=== PATIENT | male | born 1945 | race Caucasian/White ===

== ENCOUNTER 2017-01-06 04:23 | Inpatient (IN) | payer OTHER ==
[2017-01-06] MEDS ORDERED: ONDANSETRON DISINTEGRATING 4 MG TAB PO PRN (14:07)
[2017-01-06] MEDS ORDERED: ACETAMINOPHEN 325 MG TAB PO PRN (14:07)
[2017-01-06] MEDS ORDERED: ONDANSETRON 4 MG/2 ML VIAL IVP PRN (14:07)
[2017-01-06] MEDS ORDERED: NS 1,000 ML IV SCH (14:15)
[2017-01-06 14:38] LABS: ADD DIFF? YES; ADD MORPH? NO; ADD SCAN? NO; ATYPICAL LYMPHOCYTE FLAG 0 (0-99); FRAGMENT RBC FLAG 0 (0-99); HEMATOCRIT 35.6 % (40.0-51.0); HEMOGLOBIN 12.3 g/dL (13.7-17.5); LEFT SHIFT FLG 10 (0-99); LIPEMIA HEMOLYSIS FLAG 90 (0-99); MEAN CELL HEMOGLOBIN 29.2 pg (27.9-34.1); MEAN CELL HEMOGLOBIN CONCENTR. 34.6 g/dL (32.4-36.7); MEAN CELL VOLUME 84.6 fL (81.5-99.8); MEAN PLATELET VOLUME 10.5 fL (8.7-11.7); PLATELET CLUMPS FLAG 20 (0-99); PLATELET COUNT 261 10^3/uL (150-400); RED BLOOD CELL COUNT 4.21 10^6/uL (4.40-6.38); RED CELL DISTRIBUTION WIDTH 13.3 % (11.5-15.2)
[2017-01-06] MEDS ORDERED: POLYETHYLENE GLYCOL 3350 17 GM PKT PO PRN (14:42)
[2017-01-06] MEDS ORDERED: D50W 25 GM/50 ML SYR IVP PRN (14:44)
[2017-01-06] MEDS ORDERED: HYDROmorphONE/DILAUDID 1 MG/ML INJ IVP PRN (14:44)
[2017-01-06 14:58] LABS: ANION GAP 11 mEq/L (8-16); CALCIUM 9.1 mg/dL (8.5-10.4); CARBON DIOXIDE 23 mEq/l (22-31); CHLORIDE 109 mEq/L (97-110); CREATININE 0.6 mg/dL (0.7-1.3); GLOMERULAR FILTRATION RATE > 60; GLUCOSE 148 mg/dL (70-100); POTASSIUM 3.8 mEq/L (3.5-5.2); SODIUM 143 mEq/L (134-144)
[2017-01-06 15:00] LABS: PLATELET ESTIMATE ADEQUATE (ADEQ)
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
[2017-01-06] MEDS ORDERED: MUPIROCIN 2% 22 GM OINT NS ONE (15:28)
--- NOTE | 2017-01-06 15:31 | PDMN ---
Medical Necessity Medical necessity: los >2 mn (tx from another facility) for brain mass, NSTEMI, CHF, encephalopathy; admit for brain mass excision w/CV surgery for backup; comorbid CVA, pulmonary htn, hx prior brain mass; per H&P & order 01/06/17
[2017-01-06] MEDS: INSULIN LISPRO 100 UNIT/ML SC SCH ×3 (17:02→23:54)
[2017-01-06] MEDS: DEXAMETHASONE 4 MG/ML VIAL IVP SCH ×2 (17:03→23:52)
[2017-01-06] MEDS: PIPERACILLIN/TAZO 3.375 GM/DEX 50 ML IV SCH ×2 (17:06→23:52)
[2017-01-06 17:30] LABS: HEMOGLOBIN A1C 8.2 % (4.0-6.0)
[2017-01-06] MEDS ORDERED: CARVEDILOL 3.125 MG TAB PO ONE (17:48)
[2017-01-06] MEDS ORDERED: INSULIN LISPRO 100 UNIT/ML SC SCH (18:00)
[2017-01-06] MEDS ORDERED: TAZO IV SCH (18:00)
[2017-01-06] MEDS ORDERED: [UNRECOGNIZED DRUG - OTHER] IV SCH (18:00)
[2017-01-06] MEDS ORDERED: CARVEDILOL 3.125 MG TAB PO SCH (18:00)
[2017-01-06] MEDS ORDERED: PIPERACILLIN IV SCH (18:00)
[2017-01-06] MEDS ORDERED: DEX IV SCH (18:00)
--- NOTE | 2017-01-06 18:21 | CPEKG ---
Heart Rate: 105 RR Interval: 571 P-R Interval: 176 QRSD Interval: 92 QT Interval: 308 QTC Interval: 408 P Haverstraw: 83 QRS Haverstraw: 92 T Wave Haverstraw: 140 EKG Severity - ABNORMAL ECG - EKG Impression: SINUS TACHYCARDIA EKG Impression: VENTRICULAR PREMATURE COMPLEX EKG Impression: ANTERIOR INFARCT, OLD Electronically Signed By: Dale Schwartz 07-Jan-2017 12:10:49
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
[2017-01-06] MEDS: levETIRAcetam 1,000 MG in NS 100 ML IV SCH (20:31)
[2017-01-06] MEDS: ATORVASTATIN CALCIUM 40 MG TAB PO SCH (20:33)
[2017-01-06] MEDS: MUPIROCIN 2% 22 GM OINT NS SCH (20:46)
[2017-01-06] MEDS ORDERED: LORazepam 1 MG TAB PO SCH (21:00)
[2017-01-06] MEDS ORDERED: SODIUM CHLORIDE IV SCH (21:00)
[2017-01-06] MEDS ORDERED: CHLORHEXIDINE GLUC HIBICLENS 118 ML BTL TP SCH (21:00)
[2017-01-06] MEDS ORDERED: INSULIN GLARGINE 100 UNITS/ML SYRINGE SC SCH (21:00)
[2017-01-06] MEDS ORDERED: LEVETIRACETAM IV SCH (21:00)
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
[2017-01-07 04:38] LABS: % IMMATURE GRANULYOCYTES 0.7 % (0.0-1.1); ABSOLUTE IMMATURE GRANULOCYTES 0.13 10^3/uL (0.00-0.10); ADD DIFF? NO; ADD MORPH? NO; ADD SCAN? NO; ATYPICAL LYMPHOCYTE FLAG 0 (0-99); FRAGMENT RBC FLAG 0 (0-99); HEMATOCRIT 33.7 % (40.0-51.0); HEMOGLOBIN 11.6 g/dL (13.7-17.5); LEFT SHIFT FLG 0 (0-99); LIPEMIA HEMOLYSIS FLAG 90 (0-99); MEAN CELL HEMOGLOBIN 29.4 pg (27.9-34.1); MEAN CELL HEMOGLOBIN CONCENTR. 34.4 g/dL (32.4-36.7); MEAN CELL VOLUME 85.3 fL (81.5-99.8); MEAN PLATELET VOLUME 10.5 fL (8.7-11.7); PLATELET CLUMPS FLAG 0 (0-99); PLATELET COUNT 239 10^3/uL (150-400); RED BLOOD CELL COUNT 3.95 10^6/uL (4.40-6.38); RED CELL DISTRIBUTION WIDTH 12.9 % (11.5-15.2)
[2017-01-07 04:59] LABS: ALANINE AMINOTRANSFERASE 93 IU/L (21-72); ALBUMIN 2.7 g/dL (3.5-5.0); ALKALINE PHOSPHATASE 63 IU/L (38-126); ASPARTATE AMINOTRANSFERASE 64 IU/L (17-59); BILIRUBIN,TOTAL 0.7 mg/dL (0.1-1.4); CALCIUM 8.1 mg/dL (8.5-10.4); CARBON DIOXIDE 23 mEq/l (22-31); CHLORIDE 110 mEq/L (97-110); CREATININE 0.6 mg/dL (0.7-1.3); GLOMERULAR FILTRATION RATE > 60; GLUCOSE 131 mg/dL (70-100); POTASSIUM 3.5 mEq/L (3.5-5.2); TOTAL PROTEIN 4.8 g/dL (6.3-8.2)
[2017-01-07] MEDS: INSULIN LISPRO 100 UNIT/ML SC SCH ×2 (05:31→08:57)
[2017-01-07] MEDS: PIPERACILLIN/TAZO 3.375 GM/DEX 50 ML IV SCH ×4 (05:36→23:32)
[2017-01-07] MEDS: DEXAMETHASONE 4 MG/ML VIAL IVP SCH ×4 (05:36→23:32)
[2017-01-07] MEDS ORDERED: CITRATE DEXTROSE SOLN 500 ML BAG MISC ONE ×2 (06:00→10:00)
[2017-01-07] MEDS ORDERED: DOBUTamine/DEXTROSE 250 ML IV SCH ×2 (06:00→10:00)
[2017-01-07] MEDS ORDERED: niCARdipine/NACL 200 ML IV SCH ×2 (06:00→10:00)
[2017-01-07] MEDS ORDERED: ceFAZolin 2 GM/SWFI 2 GM/20 ML SYR IVP ONE ×2 (06:00→10:00)
[2017-01-07] MEDS ORDERED: PHENYLEPHRINE HCL 50 MG in NS 250 ML IV ONE ×2 (06:00→10:00)
[2017-01-07] MEDS ORDERED: INSULIN REGULAR HUMAN 100 UNIT in NS 100 ML IV ONE ×2 (06:00→10:00)
[2017-01-07] MEDS ORDERED: SODIUM BICARBONATE 20 MEQ, LIDOCAINE 1% 10 ML in NORMOSOL-R 1,000 ML MISC ONE ×2 (06:00→10:00)
[2017-01-07] MEDS ORDERED: AMINOCAPROIC ACID 5 GM/20 ML VIAL IV ONE ×2 (06:00→10:00)
[2017-01-07] MEDS ORDERED: MANNITOL 25% 12.5 GM/50 ML VIAL IV ONE ×2 (06:00→10:00)
[2017-01-07] MEDS ORDERED: NOREPINEPHRINE BITARTRATE 16 MG in NS 250 ML IV ONE ×2 (06:00→10:00)
[2017-01-07] MEDS ORDERED: VERAPAMIL 5 MG, NITROGLYCERIN 2.5 MG, HEPARIN 500 UNIT, SODIUM BICARBONATE 0.2 MEQ in L... MISC ONE ×2 (06:00→10:00)
[2017-01-07] MEDS ORDERED: DOPamine/DEXTROSE/250 ML BAG IV ONE (06:08)
[2017-01-07] MEDS ORDERED: ALBUMIN 5% 250 ML BOTTLE IV ONE ×2 (06:09→09:34)
[2017-01-07] MEDS ORDERED: PROTAMINE SULFATE 50 MG/5 ML VIAL IVP ONE (06:09)
[2017-01-07] MEDS ORDERED: AMINOCAPROIC ACID 5 GM/20 ML VIAL ONE (06:10)
[2017-01-07] MEDS ORDERED: CALCIUM CHLORIDE 1 GM/10 ML INJ ONE (06:10)
[2017-01-07] MEDS ORDERED: POTASSIUM Cl (KCl) 20 MEQ/50 ML BAG IV ONE (06:10)
[2017-01-07] MEDS ORDERED: MILRINONE/DEXTROSE/100 ML BAG IV ONE (06:10)
[2017-01-07] MEDS ORDERED: AMIODARONE HCL 150 MG/3 ML VIAL ONE (06:11)
[2017-01-07] MEDS ORDERED: CITRATE DEXTROSE SOLN 500 ML BAG ONE (06:11)
[2017-01-07] MEDS ORDERED: LIDOCAINE 2% 100 MG/5 ML SYR ONE (06:11)
[2017-01-07] MEDS ORDERED: niCARdipine/NACL/200 ML BAG IV ONE ×2 (06:11→11:04)
[2017-01-07] MEDS ORDERED: NA BICARBONATE 50 MEQ/50 ML VIAL ONE (06:11)
[2017-01-07] MEDS ORDERED: ADENOSINE 6 MG/2 ML VIAL ONE (06:11)
[2017-01-07] MEDS ORDERED: MAGNESIUM SULFATE 1 GM/2 ML VIAL ONE (06:12)
[2017-01-07] MEDS ORDERED: methylPREDNISolone SOD SUCC 1 GM/8 ML VIAL ONE (06:12)
[2017-01-07] MEDS ORDERED: HEPARIN 10,000 UNIT/10 ML MDV ONE (06:12)
[2017-01-07] MEDS ORDERED: ceFAZolin 1 GM VIAL ONE (06:13)
[2017-01-07] MEDS ORDERED: MINERAL OIL 10 ML VIAL ONE (06:48)
[2017-01-07] MEDS ORDERED: PAPAVERINE HCL 60 MG/2 ML SDV ONE (06:48)
[2017-01-07] MEDS ORDERED: VERAPAMIL 5 MG/2 ML VIAL ONE (06:48)
[2017-01-07] MEDS ORDERED: ROCURONIUM 100 MG/10 ML VIAL ONE (06:53)
[2017-01-07] MEDS ORDERED: PHENYLEPHRINE 10 MG/ML SDV ONE (06:53)
[2017-01-07] MEDS ORDERED: fentaNYL 250 MCG/5 ML INJ ONE ×2 (06:58)
[2017-01-07] MEDS ORDERED: PROPOFOL 200 MG/20 ML VIAL ONE (06:58)
[2017-01-07] MEDS ORDERED: LIDOCAINE 2% 5 ML SDV ONE (06:59)
[2017-01-07] MEDS ORDERED: LABETALOL HCL 5 MG/ML 20 ML MDV ONE (07:01)
--- NOTE | 2017-01-07 07:04 | PDHPUP ---
History & Physical Update H&P update statement: This history and physical update is based on an assessment of the patient which was completed after admission or registration (within 24 hours), but prior to the surgery/procedure.
[2017-01-07] MEDS ORDERED: MIDAZOLAM 2 MG/2 ML VIAL IVP ONE (07:07)
[2017-01-07] MEDS ORDERED: MIDAZOLAM 2 MG/2 ML VIAL ONE (07:07)
--- NOTE | 2017-01-07 07:09 | PDANEPAE ---
ANE History of Present Illness cab ANE Past Medical History - Cardiovascular History Hx Hypertension: Yes Hx Arrhythmias: No Hx Chest Pain: Yes Hx Coronary Artery / Peripheral Vascular Disease: Yes Hx CHF / Valvular Disease: Yes Hx Palpitations: No - Pulmonary History Hx COPD: No Hx Asthma/Reactive Airway Disease: No Hx Recent Upper Respiratory Infection: No Hx Oxygen in Use at Home: No Hx Sleep Apnea: No Sleep Apnea Screening Result - Last Documented: Negative - Neurologic History Hx Cerebrovascular Accident: No Hx Seizures: No Hx Dementia: No Neurologic History Comment: tumor - Endocrine History Hx Diabetes: Yes - Renal History Hx Renal Disorders: No - Liver History Hx Hepatic Disorders: No - Surgical History Prior Surgeries: brain tumor resection ANE Review of Systems Review of Systems: - Exercise capacity Exercise capacity: <4 METS ANE Patient History - Allergies Allergies/Adverse Reactions: No Known Allergies Allergy (Unverified 01/06/17 14:07) - Home Medications Home Medications: Acetaminophen [Tylenol 325mg (*)] 650 mg PO Q4HRS PRN 01/06/17 [Last Taken Unknown] Aspirin [Aspirin 81mg (*)] 81 mg PO DAILY 01/06/17 [Last Taken Unknown] Atorvastatin Calcium [Lipitor 40 mg (*)] 80 mg PO HS 01/06/17 [Last Taken Unknown] Carvedilol [Coreg (*)] 3.125 mg PO BIDMEAL 01/06/17 [Last Taken Unknown] Dexamethasone [Decadron 4mg/ml inj (*)] 4 mg IV Q6HRS 01/06/17 [Last Taken Unknown] Insulin Glargine [Lantus 100 UNITS/ML (*)] 0.2 ml SC HS 01/06/17 [Last Taken Unknown] Insulin Lispro [humALOG LISPRO 100 units/ml (*)] 1 - 20 unit SC Q6HRS 01/06/17 [ Last Taken Unknown] LORazepam [Ativan (*)] 2 mg PO HS 01/06/17 [Last Taken Unknown] Lisinopril [Zestril 2.5 mg (*)] 2.5 mg PO DAILY 01/06/17 [Last Taken Unknown] Ondansetron HCl Pf [Zofran 4 mg Inj (*)] 4 mg IV Q4HRS PRN 01/06/17 [Last Taken Unknown] Piperacillin/Tazo 3.375 gm/Dex [Zosyn 3.375 gm (Premix)] 3.375 gm IV Q8HRS 01/06 [Last Taken Unknown] Polyethylene Glycol 3350 [Miralax 17 gm (*)] 17 gm PO DAILY PRN 01/06/17 [Last Taken Unknown] Sennosides/Docusate Sodium [Senna-S Tablet] 1 each PO DAILY 01/06/17 [Last Taken Unknown] Vancomycin/0.9 % Sod Chloride [Vancomycin 1 G/100Ml-0.9% NaCl] 1 gm IV BID 01/06 [Last Taken Unknown] fentaNYL [Sublimaze] 25 - 50 mcg IV Q1HR PRN 01/06/17 [Last Taken Unknown] levETIRAcetam/NACL [Keppra 1,000 mg (Premix)] 1,000 mg IV BID 01/06/17 [Last Taken Unknown] metFORMIN HCL [Glucophage 500 mg (*)] 500 mg PO DAILY 01/06/17 [Last Taken Unknown] oxyCODONE IR [Oxycodone Ir (*)] 5 - 10 mg PO Q4HRS PRN 01/06/17 [Last Taken Unknown] - NPO status NPO Status: no food or drink >8 hours NPO Since - Liquids (Date): 01/06/17 NPO Since - Liquids (Time): 23:45 NPO Since - Solids (Date): 01/06/17 NPO Since - Solids (Time): 18:00 - Smoking Hx Smoking Status: Former smoker ANE Labs/Vital Signs - Labs Result Diagrams: 01/07/17 04:25 01/07/17 04:25 - Vital Signs Blood Pressure: 125/78 Heart Rate: 94 Respiratory Rate: 14 O2 Sat (%): 94 Height: 170.18 cm Weight: 70.2 kg ANE Physical Exam - Airway Mallampati Score: Class 2 Mouth exam: normal dental/mouth exam - Pulmonary Pulmonary: no respiratory distress - Cardiovascular Cardiovascular: regular rate and rhythym - ASA Status ASA Status: IV ANE Anesthesia Plan Anesthesia Plan: general endotracheal anesthesia Lines/Monitors: arterial line, central line, MARK
[2017-01-07] MEDS ORDERED: CARVEDILOL 6.25 MG TAB PO SCH (08:00)
[2017-01-07] MEDS ORDERED: DEXAMETHASONE 4 MG/ML VIAL ONE (08:08)
--- NOTE | 2017-01-07 08:42 | NEUSURGPN ---
Assessment/Plan: 71y/o male with large left sided brain mass, with prior craniotomy in 2008 for resection of Grade II atypical meningioma with significant cardiac disease. Patient to OR today with cardiac surgery. Dr. Tinsley has discussed with cardiology risks of surgery, but given the patient current cardiac status would also be high risk for tumor resection surgery prior to cardiac intervention. Continue Decadron Please notify SN with any change in neuro/motor exam. Subjective: Denies any headaches, nausea, dizziness. Objective: NAD A&Ox3 MAEx4 5/5 and equal in BUE and BLE. Decreased vision in left eye, per patient this has been stable since surgery back in 2008. - Physician Discussed Patient with : [facility] Physical Exam - Vitals, I&O, Labs I and O 01/06/17 01/07/17 01/08/17 05:59 05:59 05:59 Intake Total 1570 Output Total 150 Balance 1420 Weight 70.2 kg 70.2 kg Intake: Oral (ml) 500 IV Infused (ml) 1070 Ns 1,000 ml @ 75 mls/hr 850 IV CONT LAURA Rx#: [id number] Piperacillin/Tazo 3.375 120 gm/Dex 50 ml @ 100 mls/hr IV Q6 LAURA Rx#:[id number] levETIRAcetam 1,000 mg In 100 Ns 100 ml @ 440 mls/hr IV Q12 LAURA Rx#:[id number] Output: Urine (ml) 150 Catheter 150 Other: Number of Voids Incontinence 3 Number of Stools Catheter 1 Incontinence 2 Vital Signs Temp Pulse Resp BP Pulse Ox 36.7 C 94 14 125/78 H 94 01/07/17 06:42 01/07/17 07:09 01/07/17 07:09 01/07/17 07:09 01/07/17 07:09 Laboratory Results 01/07/17 04:25 01/07/17 04:25 ICD10 Worksheet Patient Problems: Problems Problem Status Onset Brain mass Acute - ICD10 Problem Qualifiers (1) Brain mass
[2017-01-07] MEDS: levETIRAcetam 1,000 MG in NS 100 ML IV SCH ×2 (08:57→20:15)
[2017-01-07] MEDS: LISINOPRIL 5 MG TAB PO SCH (08:57)
[2017-01-07] MEDS: MUPIROCIN 2% 22 GM OINT NS SCH ×2 (08:58→20:26)
[2017-01-07] MEDS ORDERED: SENNOSIDES/DOCUSATE SODIUM TAB PO SCH (09:00)
[2017-01-07] MEDS ORDERED: MAGNESIUM SULF 2 GM/WATER 50 ML BAG IV ONE (09:33)
[2017-01-07] MEDS ORDERED: SUGAMMADEX SODIUM 200 MG/2 ML VIAL IVP ONE (09:55)
[2017-01-07] MEDS ORDERED: MAGNESIUM SULF 2 GM/WATER 50 ML IV ONE (10:35)
[2017-01-07] MEDS ORDERED: CEPACOL LOZENGE PO PRN (10:35)
[2017-01-07] MEDS ORDERED: MEPERIDINE 25 MG/ML SYR IVP PRN (10:35)
[2017-01-07] MEDS ORDERED: ACETAMINOPHEN 650 MG SUPP PR PRN (10:35)
[2017-01-07] MEDS ORDERED: BISACODYL 10 MG SUPP PR PRN (10:35)
[2017-01-07] MEDS ORDERED: METOCLOPRAMIDE 10 MG/2 ML VIAL IVP PRN (10:35)
[2017-01-07] MEDS ORDERED: PANTOPRAZOLE SODIUM 40 MG in NS 100 ML IV ONE (10:35)
[2017-01-07] MEDS ORDERED: LACTULOSE 20 GM/30 ML UDCUP PO PRN (10:35)
[2017-01-07] MEDS ORDERED: SODIUM CL NASAL 45 ML BTL EACHNARE PRN (10:35)
[2017-01-07] MEDS ORDERED: ALBUMIN 5% 250 ML IV PRN (10:35)
[2017-01-07] MEDS ORDERED: MAGNESIUM HYDROXIDE 30 ML UDCUP PO PRN (10:35)
[2017-01-07] MEDS ORDERED: NS 1,000 ML IV SCH (10:45)
--- NOTE | 2017-01-07 10:47 | POSTANESTH ---
Post Anesthetic Evaluation Cardiovascular Status: Normal, Stable Respiratory Status: Normal, Stable Level of Consciousness/Mental Status: Mildly Sleepy, Arousable Pain Control: Adequate, Prn Tx Ordered Nausea/Vomiting Control: Adequate, Prn Tx Ordered Complications Possibly Related to Anesthesia: None Noted
[2017-01-07] MEDS ORDERED: NALOXONE HCL 0.4 MG/ML INJ IVP PRN (10:48)
--- NOTE | 2017-01-07 11:13 | CPEKG ---
Heart Rate: 83 RR Interval: 723 P-R Interval: 172 QRSD Interval: 110 QT Interval: 412 QTC Interval: 485 P [place]: 56 QRS [place]: 120 T Wave [place]: 136 EKG Severity - ABNORMAL ECG - EKG Impression: SINUS RHYTHM EKG Impression: LEFT POSTERIOR FASCICULAR BLOCK EKG Impression: PROBABLE INFERIOR INFARCT, OLD EKG Impression: ANTERIOR INFARCT, AGE INDETERMINATE Electronically Signed By: Dale Schwatrz 07-Jan-2017 12:11:01
[2017-01-07] MEDS: INSULIN REGULAR HUMAN 100 UNIT in NS 100 ML IV SCH ×2 (11:32→17:57)
[2017-01-07 11:38] LABS: CALCULATED OXYGEN SATURATION 86 % (92-95); O2 CONCENTRATIION 80 % (0-100)
[2017-01-07] MEDS: fentaNYL 100 MCG/2 ML INJ IVP PRN ×5 (12:05→18:24)
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
[2017-01-07] MEDS: POTASSIUM Cl (KCl) 50 ML IV PRN ×2 (13:33→20:43)
[2017-01-07] MEDS: POTASSIUM Cl (KCl) 50 ML IV SCH ×2 (14:30→15:46)
--- NOTE | 2017-01-07 15:50 | PDINTPN ---
Replenishment Specialist Progress Note Assessment/Plan: Assessment: Severe coronary artery disease. Status post coronary artery bypass grafting. Doing well. Hemodynamics stable. Hematocrit, glucose, etc all okay. Extubated postoperatively. On 5 L. Brain tumor. Recurrent meningioma. Will need surgery. No evidence of bleeding into his tumor bed at this time. Abnormal mental status: Deteriorating over the last year, worse over the last month according to the patient's POA. He has had an old stroke and previous tumor resection but likely most of his deterioration represents recurrent growth of meningioma and it is effects. Metabolic: On replacement protocols. On insulin drip per CVS protocol. Plan: Continue supportive postoperative OHS care. Follow laboratory, chest x- ray, hemodynamics. Continue Decadron, Keppra. Subjective: Doing well postoperatively. Expected pain. Down to 5 L. Objective: Vital Signs Temp Pulse Resp BP Pulse Ox 36.4 C 87 13 121/55 H 91 L 01/07/17 15:00 01/07/17 15:00 01/07/17 15:00 01/07/17 15:00 01/07/17 15:00 Laboratory Results 01/07/17 04:25 01/07/17 04:25 01/06/17 01/07/17 01/08/17 05:59 05:59 05:59 Intake Total 1570 Output Total 150 655 Balance 1420 -655 Laboratory Tests 01/07/17 01/07/17 04:25 14:57 POC Hct 37 L Calcium 8.1 L Total Bilirubin 0.7 AST 64 H ALT 93 H Albumin 2.7 L Postop chest x-ray: Probable effusion layering on the right, left lower lobe atelectasis, some vascular plethora. Physical Exam - Physical Exam General Appearance: mild distress, other (Is easily arousable, responsive, still with a hard time finding words.) EENT: other (Nasal cannula in place of 5 L) Neck: normal inspection Respiratory: lungs clear (Anteriorly), decreased breath sounds, other (Chest/ mediastinal tubes in place) Abdomen: non-tender, soft, No normal bowel sounds (Decreased, present) Male Genitalia: other (Delgado catheter in place, good urine output) Skin: normal color, warm/dry Extremities: other (Krish wrap left lower extremity secondary to vein harvest, compression device on right), No pedal edema Neuro/Psych: cognition abnormalities, No no motor/sensory deficits ICD10 Worksheet Patient Problems: Problems Problem Status Onset Recent non-ST elevation myocardial infarction (NSTEMI) Acute Acute blood loss anemia Acute S/P CABG x 3 Acute ~01/07/17 CAD, multiple vessel Acute Brain mass Acute
--- NOTE | 2017-01-07 17:05 | ASMTCMCOM ---
CM Note CM Note Notes: Chart reviewed. Patient transfer from [facility] after brain mass discovered and in setting of ACMI. To OR today for CABG. Needs to be determined. CM to follow. Date Signed: 01/07/2017 05:04 PM Electronically Signed By:Sharmin Stallworth RN
[2017-01-07] MEDS ORDERED: fentaNYL 25 MCG PATCH TD ONE (18:30)
[2017-01-07] MEDS: niCARdipine/NACL 200 ML IV SCH ×2 (18:47→20:00)
--- NOTE | 2017-01-07 19:13 | GOP ---
[f rep st] OPERATIVE REPORT DATE OF OPERATION: 01/07/2017 SURGEON: Lionel Rosas DO TRANSFORMATION MANAGER: EDSON Welch ANESTHESIOLOGIST: Rogers Mckenna MD PREOPERATIVE DIAGNOSIS: Non-Q-wave myocardial infarction with ischemic cardiomyopathy, moderate mitr al insufficiency and severe 3-vessel coronary artery disease. POSTOPERATIVE DIAGNOSIS: Non-Q-wave myocardial infarction with ischemic cardiomyopathy, moderate kermit ral insufficiency and severe 3-vessel coronary artery disease. PROCEDURE PERFORMED: 1. Urgent coronary artery bypass grafting x3 with left internal mammary artery to the left anterior descending, saphenous vein graft to the diagonal, and saphenous vein graft to the lateral circumflex. 2. Ligation of left atrial appendage with AtriClip. 3. Endoscopic vein harvest from the left thigh. FINDINGS: DESCRIPTION OF PROCEDURE: Patient was consented for surgery, brought to the operating room, intubate d, monitoring lines were placed. He was prepped and draped in sterile classical manner. Sternotomy was performed. Mammary and veins were harvested endoscopically. He was heparinized, cannulated with echo guidance. Cardiopulmonary bypass was begun. Cardioplegic arrest was obtained with antegrade c ardioplegia, topical hypothermia and systemic cooling. All distals and proximals were performed with a cross-clamp on. It should be noted that all vessels had moderate diffuse disease, were at least 1 .8 mm to 2.5 in diameter. The cross-clamp was removed with suction on the ascending aortic vent. Th e left atrial appendage was occluded with an AtriClip for some prophylaxis from embolic stroke, shoul d the patient develop atrial fibrillation, particularly given his risk for taking anticoagulants long -term. He was weaned from bypass. The heparin was reversed with protamine. The cannula was removed and oversewn. Two ventricular pacing wires, 1 left pleural and 1 mediastinal drain were placed. Th e thymic fat and pericardium were closed. The sternum was closed in standard fashion. Chest was gasper sed in standard fashion. Patient was returned to ICU in stable condition. /[id number]/MODL
[2017-01-07 19:27] LABS: ANION GAP 12 mEq/L (8-16); SODIUM 145 mEq/L (134-144)
[2017-01-07] MEDS: oxyCODONE IR 5 MG TAB PO PRN (21:00)
[2017-01-07 21:37] LABS: HEMATOCRIT 34.9 % (40.0-51.0); HEMOGLOBIN 11.8 g/dL (13.7-17.5); MEAN CELL HEMOGLOBIN 28.8 pg (27.9-34.1); MEAN CELL HEMOGLOBIN CONCENTR. 33.8 g/dL (32.4-36.7); MEAN CELL VOLUME 85.1 fL (81.5-99.8); RED BLOOD CELL COUNT 4.1 10^6/uL (4.40-6.38); RED CELL DISTRIBUTION WIDTH 13.1 % (11.5-15.2)
[2017-01-08] MEDS: niCARdipine/NACL 200 ML IV SCH (02:08)
[2017-01-08 05:12] LABS: % IMMATURE GRANULYOCYTES 0.8 % (0.0-1.1); ABSOLUTE IMMATURE GRANULOCYTES 0.19 10^3/uL (0.00-0.10); ADD DIFF? NO; ADD MORPH? NO; ADD SCAN? NO; ATYPICAL LYMPHOCYTE FLAG 0 (0-99); FRAGMENT RBC FLAG 20 (0-99); HEMATOCRIT 35.1 % (40.0-51.0); HEMOGLOBIN 12.2 g/dL (13.7-17.5); LEFT SHIFT FLG 10 (0-99); LIPEMIA HEMOLYSIS FLAG 90 (0-99); MEAN CELL HEMOGLOBIN 29.3 pg (27.9-34.1); MEAN CELL HEMOGLOBIN CONCENTR. 34.8 g/dL (32.4-36.7); MEAN CELL VOLUME 84.4 fL (81.5-99.8); MEAN PLATELET VOLUME 10.8 fL (8.7-11.7); PLATELET CLUMPS FLAG 10 (0-99); PLATELET COUNT 315 10^3/uL (150-400); RED BLOOD CELL COUNT 4.16 10^6/uL (4.40-6.38); RED CELL DISTRIBUTION WIDTH 13.1 % (11.5-15.2)
[2017-01-08] MEDS: DEXAMETHASONE 4 MG/ML VIAL IVP SCH ×4 (05:14→23:34)
[2017-01-08] MEDS: HEPARIN 5,000 UNIT/0.5 ML SYR SC SCH ×3 (05:19→21:39)
[2017-01-08 05:27] LABS: ANION GAP 10 mEq/L (8-16); CALCIUM 8.2 mg/dL (8.5-10.4); CARBON DIOXIDE 23 mEq/l (22-31); CHLORIDE 113 mEq/L (97-110); CREATININE 0.7 mg/dL (0.7-1.3); GLOMERULAR FILTRATION RATE > 60; GLUCOSE 107 mg/dL (70-100); POTASSIUM 4.6 mEq/L (3.5-5.2); SODIUM 146 mEq/L (134-144)
[2017-01-08] MEDS: oxyCODONE IR 5 MG TAB PO PRN ×2 (06:05→13:44)
[2017-01-08] MEDS: PIPERACILLIN/TAZO 3.375 GM/DEX 50 ML IV SCH (06:09)
--- NOTE | 2017-01-08 07:05 | NEUSURGPN ---
Assessment/Plan: 71y/o male with large left sided brain mass, with prior craniotomy in 2009 for resection of Grade II atypical meningioma with significant cardiac disease. Now stable CABG. -Slight increase in confusion this morning, but appropriate and following simple commands -Continue Decadron -Continue seizure prophx: Keppra bid -Please notify NS with any change in neuro/motor exam. -Discussed with Dr. Tinsley Subjective: Denies any headaches, incisional site/ pain at chest tube site Objective: NAD Oriented to person and place but not to time. Slow to move and answer questions. Sitting in the chair MAEx4 5/5 and equal in BUE and BLE. CN II-XII grossly intact. EOMI Catheter Insertion Date: 01/07/17 - Physician Discussed Patient with : [facility] Physical Exam - Vitals, I&O, Labs I and O 01/07/17 01/08/17 01/09/17 05:59 05:59 05:59 Intake Total 1570 1824 Output Total 150 1555 Balance 1420 269 Weight 70.2 kg 70.2 kg 72 kg Intake: Oral (ml) 500 120 IV Intake (ml) 875 IV Infused (ml) 1070 829 Insulin Regular Human 100 36 unit In Ns 100 ml @ Per Protocol IV CONT LAURA Rx#: [id number] Ns 1,000 ml @ 25 mls/hr 358 IV CONT LAURA Rx#: [id number] Ns 1,000 ml @ 75 mls/hr 850 IV CONT LAURA Rx#: [id number] Piperacillin/Tazo 3.375 120 gm/Dex 50 ml @ 100 mls/hr IV Q6 LAURA Rx#:[id number] levETIRAcetam 1,000 mg In 100 Ns 100 ml @ 440 mls/hr IV Q12 LAURA Rx#:[id number] niCARdipine/NACL 200 ml @ 435 Titrate IV CONT LAURA Rx#: [id number] Output: Urine (ml) 150 1055 Catheter 150 1055 Chest Tube Output (ml) 500 Location 1 Mediastinal 500 Other: Number of Voids Incontinence 3 Number of Stools Catheter 1 Incontinence 2 Vital Signs Temp Pulse Resp BP Pulse Ox 36.7 C 95 12 143/62 H 91 L 01/08/17 06:00 01/08/17 06:00 01/08/17 06:00 01/08/17 06:00 01/08/17 06:00 Laboratory Results 01/08/17 05:00 01/08/17 05:00 ICD10 Worksheet Patient Problems: Problems Problem Status Onset Acute blood loss anemia Acute Brain mass Acute CAD, multiple vessel Acute Recent non-ST elevation myocardial infarction (NSTEMI) Acute S/P CABG x 3 Acute ~01/07/17 - ICD10 Problem Qualifiers (1) Brain mass
[2017-01-08] MEDS: levETIRAcetam 1,000 MG in NS 100 ML IV SCH ×2 (08:22→21:39)
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
[2017-01-08] MEDS: MUPIROCIN 2% 22 GM OINT NS SCH (08:30)
[2017-01-08] MEDS: ASPIRIN 81 MG CHEWABLE TAB PO SCH (08:36)
[2017-01-08] MEDS: SENNOSIDES/DOCUSATE SODIUM TAB PO SCH (08:36)
[2017-01-08] MEDS: PANTOPRAZOLE SODIUM 40 MG TAB PO SCH (08:37)
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
[2017-01-08] MEDS ORDERED: ASPIRIN 81 MG CHEWABLE TAB TUBE PRN (09:00)
[2017-01-08] MEDS: CARVEDILOL 3.125 MG TAB PO SCH ×2 (09:15→18:12)
[2017-01-08] MEDS ORDERED: niCARdipine/NACL 200 ML IV SCH (09:30)
[2017-01-08] MEDS: HYDROCODONE/APAP 5/325 TAB PO PRN (09:33)
--- NOTE | 2017-01-08 09:38 | HOSPPROG ---
Hospitalist Progress Note Assessment/Plan: DIAGNOSES: -s/p CABG, doing well post op -ischemic cardiomyopathy: no CHF exacerbation at this time -brain mass, scheduled for resection next week -diabetes mellitus type 2, well controlled so far -encephalopathy/confusion, unclear what his baseline is -pressure skin injury, sacrum w redness -? aspiration pneumonia at [facility]; PLANS: can DC zosyn at this time continue current dm management, follow how well he eats, back to baseline tx's as able continue skin care continue ICU care avoid JBOSS ARCHITECT active meds as able attempt mobility; high fall risk I have reviewed w Mary Green and Jake Rose seen on multidisc rounds as well SUBJECTIVE: remains confused, disoriented not really able to discuss sxs clearly but admits to some chest pain OBJECTIVE: vitals: stable without fever card monitor: NSR exam: awake and interactive disoriented very slow mentation skin good color and cap refill resps easy lungs coarse, no wheeze or rales heart regular incision looks very good drains with serosang abd soft nontender nondistended minimal edema I reviewed last cxr images: no infiltrate, some sign of chf Objective: Vital Signs Temp Pulse Resp BP Pulse Ox 37 C 98 15 137/59 H 92 01/08/17 08:00 01/08/17 09:00 01/08/17 09:00 01/08/17 09:00 01/08/17 09:00 Laboratory Results 01/08/17 05:00 01/08/17 05:00 01/07/17 01/08/17 01/09/17 06:59 06:59 06:59 Intake Total 1570 1824 Output Total 150 1555 275 Balance 1420 269 -275 - Time Spent With Patient Time Spent with Patient: greater than 35 minutes Time Spent with Patient: Greater than 35 minutes spent on this patients care, greater than 50% of time spent counseling, educating, and coordinating care regarding the above mentioned plan. ICD10 Worksheet Patient Problems: Problems Problem Status Onset Acute blood loss anemia Acute Brain mass Acute CAD, multiple vessel Acute Recent non-ST elevation myocardial infarction (NSTEMI) Acute S/P CABG x 3 Acute ~01/07/17
[2017-01-08] MEDS: INSULIN LISPRO 100 UNIT/ML SC SCH ×4 (12:08→23:34)
--- NOTE | 2017-01-08 12:19 | PDINTPN ---
Fourdrinier Tender Progress Note Assessment/Plan: Assessment: Severe coronary artery disease. Status post coronary artery bypass grafting. Doing well. Hemodynamics stable. Hematocrit, glucose, etc all okay. Extubated postoperatively. On 2 L. Brain tumor. Recurrent meningioma. Will need surgery, timing per Neurosurgery. No evidence of bleeding into his tumor bed postoperatively. On Keppra, Decadron. Abnormal mental status: Deteriorating over the last year, worse over the last month according to the patient's POA. He has had an old stroke and previous tumor resection but likely most of his deterioration represents recurrent growth of meningioma and it is effects. Metabolic: On replacement protocols. On insulin drip. Plan: Continue supportive postoperative care. Follow laboratory, chest x-ray, hemodynamics. Continue Decadron, Keppra, neuro checks. Subjective: Confused. Up in the chair. Some sternal pain as expected. Denies headache. Objective: Vital Signs Temp Pulse Resp BP Pulse Ox 36.4 C 90 16 129/57 H 97 01/08/17 12:00 01/08/17 12:00 01/08/17 12:00 01/08/17 12:00 01/08/17 12:00 Laboratory Results 01/08/17 05:00 01/08/17 05:00 01/07/17 01/08/17 01/09/17 05:59 05:59 05:59 Intake Total 1570 1824 Output Total 150 1555 500 Balance 1420 269 -500 CT head: No change. 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 Chest x-ray: Lines and tubes in good position. Some left basilar atelectasis, possible effusion on right, small. Physical Exam - Physical Exam General Appearance: mild distress, other (Confused, hard understand), No alert EENT: PERRL/EOMI, other Neck: normal inspection (Cannula at 2 L) Respiratory: lungs clear (Anteriorly), decreased breath sounds (At bases), rales (Few at bases), other (Chest/mediastinal tubes in place. Serosanguineous) , No rhonchi, No wheezing Cardiac/Chest: regular rate, rhythm (Sinus at approximately 90) Abdomen: non-tender, soft, No normal bowel sounds (Decreased, present) Male Genitalia: other (Delgado catheter in place, good urine output) Skin: normal color, warm/dry Extremities: No pedal edema Neuro/Psych: no motor/sensory deficits (Moves all extremities), cognition abnormalities (Similar to preop, confused, hard time finding words.) ICD10 Worksheet Patient Problems: Problems Problem Status Onset Recent non-ST elevation myocardial infarction (NSTEMI) Acute Acute blood loss anemia Acute S/P CABG x 3 Acute ~01/07/17 CAD, multiple vessel Acute Brain mass Acute
[2017-01-09] MEDS: oxyCODONE IR 5 MG TAB PO PRN ×2 (00:53→05:30)
[2017-01-09 04:13] LABS: % IMMATURE GRANULYOCYTES 0.7 % (0.0-1.1); ABSOLUTE IMMATURE GRANULOCYTES 0.19 10^3/uL (0.00-0.10); ADD DIFF? NO; ADD MORPH? NO; ADD SCAN? NO; ATYPICAL LYMPHOCYTE FLAG 0 (0-99); FRAGMENT RBC FLAG 0 (0-99); HEMATOCRIT 30.8 % (40.0-51.0); HEMOGLOBIN 10.6 g/dL (13.7-17.5); LEFT SHIFT FLG 10 (0-99); LIPEMIA HEMOLYSIS FLAG 90 (0-99); MEAN CELL HEMOGLOBIN 29.4 pg (27.9-34.1); MEAN CELL HEMOGLOBIN CONCENTR. 34.4 g/dL (32.4-36.7); MEAN CELL VOLUME 85.3 fL (81.5-99.8); MEAN PLATELET VOLUME 10.9 fL (8.7-11.7); PLATELET CLUMPS FLAG 0 (0-99); PLATELET COUNT 256 10^3/uL (150-400); RED BLOOD CELL COUNT 3.61 10^6/uL (4.40-6.38)
[2017-01-09 04:20] LABS: ANION GAP 9 mEq/L (8-16); CALCIUM 8.4 mg/dL (8.5-10.4); CARBON DIOXIDE 27 mEq/l (22-31); CHLORIDE 109 mEq/L (97-110); CREATININE 0.6 mg/dL (0.7-1.3); GLOMERULAR FILTRATION RATE > 60; GLUCOSE 142 mg/dL (70-100); POTASSIUM 4.4 mEq/L (3.5-5.2); SODIUM 145 mEq/L (134-144)
[2017-01-09] MEDS: INSULIN LISPRO 100 UNIT/ML SC SCH ×6 (05:02→23:59)
[2017-01-09] MEDS: DEXAMETHASONE 4 MG/ML VIAL IVP SCH ×4 (05:33→23:59)
[2017-01-09] MEDS: HEPARIN 5,000 UNIT/0.5 ML SYR SC SCH (05:45)
[2017-01-09] MEDS: CARVEDILOL 3.125 MG TAB PO SCH (07:48)
[2017-01-09] MEDS: HYDROCODONE/APAP 5/325 TAB PO PRN (07:48)
[2017-01-09] MEDS: SENNOSIDES/DOCUSATE SODIUM TAB PO SCH (07:53)
[2017-01-09] MEDS: ASPIRIN 81 MG CHEWABLE TAB PO SCH (07:53)
[2017-01-09] MEDS: PANTOPRAZOLE SODIUM 40 MG TAB PO SCH (07:53)
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
[2017-01-09] MEDS ORDERED: CARVEDILOL 3.125 MG TAB PO ONE (08:19)
[2017-01-09] MEDS ORDERED: CARVEDILOL 3.125 MG TAB ONE (08:24)
[2017-01-09] MEDS: CARVEDILOL 6.25 MG TAB PO SCH ×2 (08:29→18:04)
[2017-01-09] MEDS: levETIRAcetam 1,000 MG in NS 100 ML IV SCH ×2 (09:40→19:56)
[2017-01-09] MEDS ORDERED: ALTEPLASE 2 MG VIAL IVP PRN (10:17)
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
[2017-01-09] MEDS: TAMSULOSIN HCL 0.4 MG CAP PO SCH (12:42)
--- NOTE | 2017-01-09 13:00 | HOSPPROG ---
Hospitalist Progress Note Assessment/Plan: DIAGNOSES: -s/p CABG, doing well post op -ischemic cardiomyopathy, mitral regurg, Pulm HTN: no CHF exacerbation at this time -brain mass, plan for eventual resection -diabetes mellitus type 2, well controlled so far on insulin drip -encephalopathy/confusion, unclear what his baseline is, appears largely due to tumor -pressure skin injury, sacrum w redness -? aspiration pneumonia at [facility]; PLANS: continue current dm management, follow how well he eats, back to baseline tx's as able ( though sounds like he doesn't take his prescribed meds at home?) continue skin care continue ICU care avoid EGG SEPARATOR active meds as able attempt mobility; high fall risk I have reviewed w Mary Green and Jake Rose seen on multidisc rounds as well SUBJECTIVE: remains confused, disoriented not really able to discuss sxs clearly; his expected post chest pain seems better tolerated than yesterday OBJECTIVE: vitals: stable without fever card monitor: NSR exam: awake and interactive disoriented very slow mentation skin good color and cap refill resps easy lungs coarse, no wheeze or rales heart regular incision looks very good drains with serosang abd soft nontender nondistended minimal edema Objective: Vital Signs Temp Pulse Resp BP Pulse Ox 36.8 C 91 12 138/84 H 96 01/09/17 08:00 01/09/17 12:00 01/09/17 12:00 01/09/17 12:00 01/09/17 12:00 Laboratory Results 01/09/17 04:00 01/09/17 04:00 01/08/17 01/09/17 01/10/17 06:59 06:59 06:59 Intake Total 1824 1346 Output Total 1555 1390 490 Balance 269 -44 -490 ICD10 Worksheet Patient Problems: Problems Problem Status Onset Acute blood loss anemia Acute Brain mass Acute CAD, multiple vessel Acute Recent non-ST elevation myocardial infarction (NSTEMI) Acute S/P CABG x 3 Acute ~01/07/17
[2017-01-09 13:06] LABS: HEMATOCRIT 31.2 % (40.0-51.0); HEMOGLOBIN 10.9 g/dL (13.7-17.5)
--- NOTE | 2017-01-09 13:58 | PDINTPN ---
Warehouse Specialist Progress Note Assessment/Plan: Assessment: 71-year-old transferred from [facility] per request of neuro surgery with a recurrent brain tumor and severe coronary artery disease. Status post recent non ST MD. Severe coronary artery disease. Status post coronary artery bypass grafting. Doing well. Hemodynamics stable. Hematocrit, glucose, etc all okay. Extubated postoperatively. On RA. Brain tumor. Recurrent meningioma. Will need surgery, timing per Neurosurgery. No evidence of bleeding into his tumor bed postoperatively. On Keppra, Decadron. Abnormal mental status: Deteriorating over the last year, worse over the last month according to the patient's POA. He has had an old stroke and previous tumor resection but likely most of his deterioration represents recurrent growth of meningioma and it is effects. Metabolic: On replacement protocols. On insulin drip. DVT prophylaxis: On SCDs, ambulating with assistance Plan: Continue supportive postoperative care in the intensive care unit. Follow laboratory, chest x-ray, hemodynamics. Continue Decadron, Keppra, neuro checks. 30 min CC time spent directly with patient. Discussed with CVS, NS, Nursing, and the ICU M-D team Subjective: Walked in the halls with physical therapy. Confused. Aphasic Objective: Vital Signs Temp Pulse Resp BP Pulse Ox 36.8 C 91 12 138/84 H 96 01/09/17 08:00 01/09/17 12:00 01/09/17 12:00 01/09/17 12:00 01/09/17 12:00 Laboratory Results 01/09/17 12:50 01/09/17 04:00 01/08/17 01/09/17 01/10/17 05:59 05:59 05:59 Intake Total 1824 1346 Output Total 1555 1390 620 Balance 621 -61 -489 Physical Exam - Physical Exam General Appearance: no apparent distress EENT: other (On room air) Neck: normal inspection Respiratory: lungs clear (Anteriorly), decreased breath sounds (At bases), rales (Few, nonspecific) Cardiac/Chest: regular rate, rhythm, other (Mediastinal/pleural tubes in place) Abdomen: normal bowel sounds, non-tender, soft Male Genitalia: other (Requiring straight catheterization) Skin: normal color, warm/dry Extremities: No pedal edema Neuro/Psych: no motor/sensory deficits (Moves all extremities equally, walks with difficulty with physical therapy and a walker), cognition abnormalities ICD10 Worksheet Patient Problems: Problems Problem Status Onset Acute blood loss anemia Acute Brain mass Acute CAD, multiple vessel Acute Recent non-ST elevation myocardial infarction (NSTEMI) Acute S/P CABG x 3 Acute ~01/07/17 chronic disease mgmt/transitional Care Acute
--- NOTE | 2017-01-09 14:06 | NEUSURGPN ---
Assessment/Plan: 71y/o male with large left sided brain mass, with prior craniotomy in 2009 for resection of Grade II atypical meningioma with significant cardiac disease. Now stable CABG. -Slight increase in confusion this morning, but appropriate and following simple commands -Continue Decadron -Continue seizure prophx: Keppra bid -Please notify NS with any change in neuro/motor exam. -Continue Q2 hour neuro checks and SDU level of care -Discussed with Dr. Tinsley Subjective: Denies any new pain, numbness or tingling Objective: NAD Oriented to person and place but not to time. Slow to move and answer questions. Sitting in the chair MAEx4 5/5 and equal in BUE and BLE. CN II-XII grossly intact. EOMI Catheter Insertion Date: 01/07/17 - Physician Discussed Patient with : Al[facility] Neurosurgery Physical Exam - Vitals, I&O, Labs I and O 01/08/17 01/09/17 01/10/17 05:59 05:59 05:59 Intake Total 1824 1346 Output Total 1555 1390 620 Balance 269 -44 -620 Weight 70.2 kg 69.8 kg Intake: Oral (ml) 120 720 IV Intake (ml) 875 626 IV Infused (ml) 829 Insulin Regular Human 100 36 unit In Ns 100 ml @ Per Protocol IV CONT LAURA Rx#: [id number] Ns 1,000 ml @ 25 mls/hr 358 IV CONT LAURA Rx#: [id number] niCARdipine/NACL 200 ml @ 435 Titrate IV CONT LAURA Rx#: [id number] Output: Urine (ml) 1055 1050 400 Catheter 1055 1050 400 Chest Tube Output (ml) 500 340 220 Location 1 115 150 Location 1 Mediastinal 500 50 Location 2 175 70 Other: Output Comment Catheter straight cath straight cathed Bladder Scan Volume (ml) Urinal 330 480 Vital Signs Temp Pulse Resp BP Pulse Ox 36.8 C 93 13 127/61 H 97 01/09/17 08:00 01/09/17 14:00 01/09/17 14:00 01/09/17 14:00 01/09/17 14:00 Laboratory Results 01/09/17 12:50 01/09/17 04:00 ICD10 Worksheet Patient Problems: Problems Problem Status Onset Acute blood loss anemia Acute Brain mass Acute CAD, multiple vessel Acute Recent non-ST elevation myocardial infarction (NSTEMI) Acute S/P CABG x 3 Acute ~01/07/17 - ICD10 Problem Qualifiers (1) Brain mass
[2017-01-10] MEDS: INSULIN LISPRO 100 UNIT/ML SC SCH ×6 (03:32→21:54)
[2017-01-10 03:34] LABS: HEMATOCRIT 28.7 % (40.0-51.0); HEMOGLOBIN 9.9 g/dL (13.7-17.5)
[2017-01-10] MEDS: DEXAMETHASONE 4 MG/ML VIAL IVP SCH (05:47)
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
[2017-01-10] MEDS: TAMSULOSIN HCL 0.4 MG CAP PO SCH (08:57)
[2017-01-10] MEDS: CARVEDILOL 6.25 MG TAB PO SCH ×2 (08:57→17:13)
[2017-01-10] MEDS: ASPIRIN 81 MG CHEWABLE TAB PO SCH (08:57)
[2017-01-10] MEDS: PANTOPRAZOLE SODIUM 40 MG TAB PO SCH (08:57)
[2017-01-10] MEDS: SENNOSIDES/DOCUSATE SODIUM TAB PO SCH (08:58)
[2017-01-10] MEDS: levETIRAcetam 500 MG TAB PO SCH ×2 (08:58→21:31)
--- NOTE | 2017-01-10 12:14 | NEUSURGPN ---
Assessment/Plan: Assessment/Plan: 71y/o male with large left sided brain mass, with prior craniotomy in 2009 for resection of Grade II atypical meningioma with significant cardiac disease. Now stable CABG. -Neuro stable this morning. Alert and confusion improved. -Continue Decadron 4mg q6hrs until surgery -Continue seizure prophx: Keppra bid -Please notify NS with any change in neuro/motor exam. -Spoke with RN and Dr. Tinsley. Cardiology would like to get patient up and moving to rehab for a week or so prior to his brain surgery. We agree with this as long as he is stable today in Tele and as long as he goes to rehab facility like [place] that has good rehab doc on board. -Ok to transfer to Tele today on q4 hour neruo checks -Discussed with Dr. Tinsley- plan on surgery in next week or so. Subjective: Doing well. Denies headache this morning. Somewhat depressed this morning but encouraged at the thought of getting out of hospital to Objective: NAD Oriented to person and place and time. Slow to move and answer questions but appropriate. Sitting in the chair MAEx4 5/5 and equal in BUE and BLE. CN II -XII grossly intact. EOMI Catheter Insertion Date: 01/07/17 - Physician Discussed Patient with : [facility] Neurosurgery Physical Exam - Vitals, I&O, Labs I and O 01/09/17 01/10/17 01/11/17 05:59 05:59 05:59 Intake Total 1346 1784 Output Total 1390 2000 Balance -44 -216 Weight 69.8 kg 68 kg Intake: Oral (ml) 720 1440 IV Intake (ml) 626 344 Output: Urine (ml) 1050 1700 Catheter 1050 1700 Chest Tube Output (ml) 340 300 Location 1 115 230 Location 1 Mediastinal 50 Location 2 175 70 Other: Output Comment Catheter straight cath straight cath Bladder Scan Volume (ml) Catheter 486 Urinal 330 480 Vital Signs Temp Pulse Resp BP Pulse Ox 36.8 C 83 12 127/44 H 94 01/10/17 07:40 01/10/17 07:40 01/10/17 04:00 01/10/17 07:40 01/10/17 07:40 Laboratory Results 01/10/17 03:30 01/09/17 04:00 ICD10 Worksheet Patient Problems: Problems Problem Status Onset Acute blood loss anemia Acute Brain mass Acute CAD, multiple vessel Acute Recent non-ST elevation myocardial infarction (NSTEMI) Acute S/P CABG x 3 Acute ~01/07/17
[2017-01-10] MEDS: DEXAMETHASONE 4 MG TAB PO SCH ×2 (12:21→17:13)
--- NOTE | 2017-01-10 14:06 | ASMTCMCOM ---
CM Note CM Note Notes: Met w/pt and friend Gerardo Lara ([phone]) Discussed need for SNF rehab. Pt in agreement with need for rehab prior to planned surgery for brain tumor. Friend Gerardo reinforced need for SNF rehab and then readmit for brain surgery. Gerardo lives in [facility] and is leaving tomorrow. He will be back in [place] on the date of brain surgery. Friend Bindu Patton ([phone]) is coming to visit pt while Gerardo is away. Per pt there is no family involved. [facility] [place]. Case Management d/c poc: to SNF rehab when medically stable. Case Management to follow. Date Signed: 01/10/2017 02:05 PM Electronically Signed By:Brittni Winter RN
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
[2017-01-10] MEDS: HEPARIN 5,000 UNIT/0.5 ML SYR SC SCH ×2 (17:13→21:31)
[2017-01-10] MEDS: ATORVASTATIN CALCIUM 40 MG TAB PO SCH (21:38)
[2017-01-10] MEDS: INSULIN GLARGINE 100 UNITS/ML SYRINGE SC SCH (21:39)
[2017-01-11] MEDS: DEXAMETHASONE 4 MG TAB PO SCH ×5 (00:34→23:50)
[2017-01-11] MEDS: INSULIN LISPRO 100 UNIT/ML SC SCH ×10 (00:41→23:55)
[2017-01-11] MEDS: HEPARIN 5,000 UNIT/0.5 ML SYR SC SCH ×3 (04:41→22:20)
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
--- NOTE | 2017-01-11 07:33 | NEUSURGPN ---
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 Now s/p CABG. Plan: -Neuro stable this morning. Alert and confusion improved overall -Continue Decadron 4mg q6hrs until surgery -Continue seizure prophx: Keppra bid -Please notify NS with any change in neuro/motor exam. -Spoke with RN and Dr. Tinsley. Cardiology would like to get patient up and moving to rehab for a week or so prior to his brain surgery. We agree with this as long as he is stable today in Tele and as long as he goes to rehab facility like [place] that has good rehab doc on board -Ok to transfer to Tele today on q4 hour neruo checks -Discussed with Dr. Tinsley- plan on surgery in next week or so -call with any questions or concerns Subjective: Awake and alert. NAD. Eating/drinking and voiding. No f/c/n/v/d. Objective: NAD Oriented to person and place and time Slow to move and answer questions but appropriate-c/w hx MAEx4 5/5 and equal in BUE and BLE CN II-XII grossly intact. EOMI Neuro Check Frequency: per routine Urinary Catheter in Place: No Catheter Insertion Date: 01/07/17 - Physician Discussed Patient with Dr.: Tinsley Neurosurgery Physical Exam - Vitals, I&O, Labs I and O 01/10/17 01/11/17 01/12/17 05:59 05:59 05:59 Intake Total 1784 690 Output Total 1999 1025 Balance -216 -335 Weight 68 kg 69.2 kg Intake: Oral (ml) 1440 650 IV Intake (ml) 344 40 Output: Urine (ml) 1700 1025 Bedside Commode 875 Catheter 1700 Toilet 150 Chest Tube Output (ml) 300 Location 1 230 Location 2 70 Other: Intake Quantity Yes Sufficient Output Comment Bedside Commode pvr check is 175ml. cont to monitor Catheter straight cath Toilet pvr 384 ml, will straight cath if greaterthan 400 ml. monitor Number of Voids Bedside Commode 1 Toilet 1 Number of Stools Incontinence 1 Bladder Scan Volume (ml) Catheter 486 Urinal 480 Vital Signs Temp Pulse Resp BP Pulse Ox 36.9 C 73 16 143/61 H 97 01/11/17 04:00 01/11/17 04:00 01/11/17 04:00 01/11/17 04:00 01/11/17 04:00 Laboratory Results 01/10/17 03:30 01/09/17 04:00 ICD10 Worksheet Patient Problems: Problems Problem Status Onset Acute blood loss anemia Acute Brain mass Acute CAD, multiple vessel Acute Recent non-ST elevation myocardial infarction (NSTEMI) Acute S/P CABG x 3 Acute ~01/07/17
[2017-01-11] MEDS ORDERED: SENNOSIDES/DOCUSATE SODIUM TAB PO PRN (09:00)
--- NOTE | 2017-01-11 09:45 | HOSPPROG ---
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 as able increase mobility as able eventual resection of brain lesion per surgeons DC planning SUBJECTIVE: feels better overall today OBJECTIVE: vitals: stable without fever card monitor: NSR exam: oriented and interactive today skin good color and cap refill resps easy lungs coarse, no wheeze or rales heart regular incision looks very good abd soft nontender nondistended minimal edema sugars in 140s now, ideal range 150-180+/- Objective: Vital Signs Temp Pulse Resp BP Pulse Ox 37.0 C 61 11 L 128/60 H 96 01/11/17 07:41 01/11/17 07:41 01/11/17 07:41 01/11/17 07:41 01/11/17 07:41 Laboratory Results 01/10/17 03:30 01/09/17 04:00 01/10/17 01/11/17 01/12/17 06:59 06:59 06:59 Intake Total 9724 456 Output Total 1999 5477 Balance -216 -339 ICD10 Worksheet Patient Problems: Problems Problem Status Onset Acute blood loss anemia Acute Brain mass Acute CAD, multiple vessel Acute Recent non-ST elevation myocardial infarction (NSTEMI) Acute S/P CABG x 3 Acute ~01/07/17
[2017-01-11] MEDS: CARVEDILOL 6.25 MG TAB PO SCH ×2 (10:02→17:32)
[2017-01-11] MEDS: ASPIRIN 81 MG CHEWABLE TAB PO SCH (10:02)
[2017-01-11] MEDS: levETIRAcetam 500 MG TAB PO SCH ×2 (10:03→20:00)
[2017-01-11] MEDS: LISINOPRIL 5 MG TAB PO SCH (10:03)
[2017-01-11] MEDS: TAMSULOSIN HCL 0.4 MG CAP PO SCH (10:03)
[2017-01-11] MEDS: PANTOPRAZOLE SODIUM 40 MG TAB PO SCH (10:03)
[2017-01-11] MEDS: ATORVASTATIN CALCIUM 40 MG TAB PO SCH (19:59)
[2017-01-11] MEDS: INSULIN GLARGINE 100 UNITS/ML SYRINGE SC SCH (20:01)
[2017-01-12] MEDS: INSULIN LISPRO 100 UNIT/ML SC SCH ×8 (04:27→21:50)
[2017-01-12] MEDS: HEPARIN 5,000 UNIT/0.5 ML SYR SC SCH ×3 (06:20→22:51)
[2017-01-12] MEDS: DEXAMETHASONE 4 MG TAB PO SCH ×3 (06:20→18:21)
--- NOTE | 2017-01-12 07:05 | NEUSURGPN ---
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 Now s/p CABG. Plan: -Neuro stable this morning. Alert and confusion improved overall day to day -Continue Decadron 4mg q6hrs until surgery-rx on chart if able to find placement -Continue seizure prophx: Keppra bid -Please notify NS with any change in neuro/motor exam. -Spoke with RN and Dr. Tinsley. Cardiology/NS/CT surgery would like to get patient up and moving to rehab for a week or so prior to his brain surgery. We agree with this as long as he goes to rehab facility like [facility] that has good rehab doc on board-or equivalent -Ok to transfer to rehab once an acceptable facility is found -Discussed with Dr. Tinsley- plan on surgery 01/19/17 -call with any questions or concerns Subjective: Awake and alert. NAD. Eating/drinking and voiding. No f/c/n/v/d. No leos/neck/ abd or gu complaints. No other complaints or concerns. Objective: NAD Oriented to person and place and time Slow to move and answer questions but appropriate-c/w hx and prior exam MUÑOZ x 4 5/5 and equal in BUE and BLE CN II-XII grossly intact. EOMI Neuro Check Frequency: per routine Urinary Catheter in Place: No Catheter Insertion Date: 01/07/17 - Physician Discussed Patient with Dr.: Tinsley Neurosurgery Physical Exam - Vitals, I&O, Labs I and O 01/11/17 01/12/17 01/13/17 05:59 05:59 05:59 Intake Total 690 1150 Output Total 1025 800 Balance -335 350 Weight 69.2 kg 69.1 kg Intake: Oral (ml) 650 1150 IV Intake (ml) 40 Output: Urine (ml) 1025 800 Bedside Commode 875 800 Toilet 150 Other: Intake Quantity Yes Sufficient Output Comment Bedside Commode pvr check is 175ml. cont to monitor Toilet pvr 384 ml, will straight cath if greaterthan 400 ml. monitor Number of Voids Bedside Commode 1 1 Toilet 1 Number of Stools Incontinence 1 Bladder Scan Volume (ml) Urinal 389 Vital Signs Temp Pulse Resp BP Pulse Ox 36.9 C 88 13 131/59 H 95 01/12/17 04:00 01/12/17 04:00 01/12/17 04:00 01/12/17 04:00 01/12/17 04:00 Laboratory Results 01/10/17 03:30 01/09/17 04:00 ICD10 Worksheet Patient Problems: Problems Problem Status Onset Acute blood loss anemia Acute Brain mass Acute CAD, multiple vessel Acute Recent non-ST elevation myocardial infarction (NSTEMI) Acute S/P CABG x 3 Acute ~01/07/17 chronic disease mgmt/transitional Care Acute
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
[2017-01-12] MEDS: CARVEDILOL 6.25 MG TAB PO SCH (09:42)
[2017-01-12] MEDS: TAMSULOSIN HCL 0.4 MG CAP PO SCH (09:45)
[2017-01-12] MEDS: PANTOPRAZOLE SODIUM 40 MG TAB PO SCH (09:45)
[2017-01-12] MEDS: ASPIRIN 81 MG CHEWABLE TAB PO SCH (09:45)
[2017-01-12] MEDS: levETIRAcetam 500 MG TAB PO SCH ×2 (09:45→22:50)
[2017-01-12] MEDS: LISINOPRIL 5 MG TAB PO SCH (09:46)
--- NOTE | 2017-01-12 11:24 | ASMTCMCOM ---
CM Note CM Note Notes: Chart reviewed. Spoke with Bill Altman Neuro surgery. Patient condition requires closer supervision than SNF could provide. Inpatient rehab declines patient at present per patients monitoring needs. Plan to OR on 01/21. CM to follow. Date Signed: 01/12/2017 11:23 AM Electronically Signed By:Sharmin Stallworth RN
--- NOTE | 2017-01-12 17:43 | HOSPPROG ---
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 increase mobility as able eventual resection of brain lesion per surgeons DC planning SUBJECTIVE: feels better overall today OBJECTIVE: vitals: stable without fever card monitor: NSR exam: oriented and interactive today skin good color and cap refill resps easy lungs coarse, no wheeze or rales heart regular incision looks very good abd soft nontender nondistended minimal edema Objective: Vital Signs Temp Pulse Resp BP Pulse Ox 37.1 C 59 L 18 124/52 H 98 01/12/17 16:00 01/12/17 16:00 01/12/17 16:00 01/12/17 16:00 01/12/17 16:00 Laboratory Results 01/10/17 03:30 01/09/17 04:00 01/11/17 01/12/17 01/13/17 06:59 06:59 06:59 Intake Total 690 1150 720 Output Total 1025 800 700 Balance -335 350 20 ICD10 Worksheet Patient Problems: Problems Problem Status Onset Acute blood loss anemia Acute Brain mass Acute CAD, multiple vessel Acute Recent non-ST elevation myocardial infarction (NSTEMI) Acute S/P CABG x 3 Acute ~01/07/17 chronic disease mgmt/transitional Care Acute
[2017-01-12] MEDS: CARVEDILOL 3.125 MG TAB PO SCH (18:21)
[2017-01-12] MEDS: INSULIN GLARGINE 100 UNITS/ML SYRINGE SC SCH (22:50)
[2017-01-12] MEDS: ATORVASTATIN CALCIUM 40 MG TAB PO SCH (22:51)
[2017-01-12] MEDS: ACETAMINOPHEN 325 MG TAB PO PRN (22:51)
[2017-01-13] MEDS: INSULIN LISPRO 100 UNIT/ML SC SCH ×11 (00:23→23:52)
[2017-01-13] MEDS: DEXAMETHASONE 4 MG TAB PO SCH ×5 (01:08→23:52)
--- NOTE | 2017-01-13 07:26 | NEUSURGPN ---
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 Now s/p CABG. Plan: -Neuro stable this morning. Awake and alert -Continue Decadron 4mg q6hrs until surgery-rx on chart if able to find placement -Continue seizure prophx: Keppra bid -Please notify NS with any change in neuro/motor exam. -Spoke with Dr. Tinsley. Cardiology/NS/CT surgery would like to get patient up and moving to rehab for a week or so prior to his brain surgery. We agree with this as long as he goes to rehab facility like [facility] that has good rehab doc on board-or equivalent-placement still on hold for facility-may be here thru next week -Ok to transfer to rehab once an acceptable facility is found -Discussed with Dr. Tinsley- plan on surgery 01/19/17 -pt updated -call with any questions or concerns Subjective: Awake and alert. No leos/neck/abd or gu complaints. No f/c/n/v/d. Objective: NAD. Oriented to person and place and time Answers questions appropriately MUÑOZ x 4 5/5 and equal in BUE and BLE CN II-XII grossly intact. EOMI Neuro Check Frequency: per routine Urinary Catheter in Place: No Catheter Insertion Date: 01/07/17 - Physician Discussed Patient with Dr.: Tinsley Neurosurgery Physical Exam - Vitals, I&O, Labs I and O 01/12/17 01/13/17 01/14/17 05:59 05:59 05:59 Intake Total 1150 720 Output Total 800 1300 Balance 350 -580 Weight 69.1 kg 69.1 kg Intake: Oral (ml) 1150 720 Output: Urine (ml) 800 1300 Bedside Commode 800 Toilet 950 Urinal 350 Other: Number of Voids Bedside Commode 1 Toilet 1 Bladder Scan Volume (ml) Toilet 325 Urinal 389 Vital Signs Temp Pulse Resp BP Pulse Ox 36.4 C 58 L 12 129/56 H 97 01/13/17 04:00 01/13/17 04:00 01/13/17 04:00 01/13/17 04:00 01/13/17 04:00 Laboratory Results 01/10/17 03:30 01/09/17 04:00 ICD10 Worksheet Patient Problems: Problems Problem Status Onset Acute blood loss anemia Acute Brain mass Acute CAD, multiple vessel Acute Recent non-ST elevation myocardial infarction (NSTEMI) Acute S/P CABG x 3 Acute ~01/07/17 chronic disease mgmt/transitional Care Acute
[2017-01-13] MEDS: HEPARIN 5,000 UNIT/0.5 ML SYR SC SCH ×3 (08:24→21:19)
[2017-01-13] MEDS: LISINOPRIL 5 MG TAB PO SCH (08:30)
[2017-01-13] MEDS: TAMSULOSIN HCL 0.4 MG CAP PO SCH (08:30)
[2017-01-13] MEDS: levETIRAcetam 500 MG TAB PO SCH ×2 (08:30→21:19)
[2017-01-13] MEDS: PANTOPRAZOLE SODIUM 40 MG TAB PO SCH (08:31)
[2017-01-13] MEDS: ASPIRIN 81 MG CHEWABLE TAB PO SCH (08:31)
[2017-01-13] MEDS: CARVEDILOL 3.125 MG TAB PO SCH ×2 (11:34→18:25)
--- NOTE | 2017-01-13 11:36 | ASMTCMCOM ---
CM Note CM Note Notes: Pt is scheduled to have surgery on 01/19. GLORIA spoke yaneth/ Rula, mining manager in case management. Director of case management is recommending to keep pt at the hospital because there is a possibility that if pt discharges to a facility it may be considered as a re-admission back to hospital for surgery and Medicare may not cover surgery. GLORIA communicated this information to RN to pass information to Javed Altman MD. GLORIA to follow. Date Signed: 01/13/2017 11:36 AM Electronically Signed By:CHANTE Prado
[2017-01-13 14:20] LABS: % SATURATION 10 % (20-55); TOTAL IRON BINDING CAPACITY 223 ug/dL (260-490)
--- NOTE | 2017-01-13 18:48 | HOSPPROG ---
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 as able increase mobility as able eventual resection of brain lesion per surgeons DC planning SUBJECTIVE: feels better overall today OBJECTIVE: vitals: stable without fever card monitor: NSR exam: oriented and interactive today skin good color and cap refill resps easy lungs coarse, no wheeze or rales heart regular incision looks very good abd soft nontender nondistended minimal edema Objective: Vital Signs Temp Pulse Resp BP Pulse Ox 36.8 C 56 L 18 142/94 H 94 01/13/17 16:00 01/13/17 18:25 01/13/17 16:00 01/13/17 16:00 01/13/17 16:00 Laboratory Results 01/10/17 03:30 01/09/17 04:00 01/12/17 01/13/17 01/14/17 06:59 06:59 06:59 Intake Total 1150 720 Output Total 800 1600 300 Balance 350 -880 -300 ICD10 Worksheet Patient Problems: Problems Problem Status Onset Acute blood loss anemia Acute Brain mass Acute CAD, multiple vessel Acute Recent non-ST elevation myocardial infarction (NSTEMI) Acute S/P CABG x 3 Acute ~01/07/17 chronic disease mgmt/transitional Care Acute
[2017-01-13] MEDS: INSULIN GLARGINE 100 UNITS/ML SYRINGE SC SCH (21:12)
[2017-01-13] MEDS: ATORVASTATIN CALCIUM 40 MG TAB PO SCH (21:19)
[2017-01-13] MEDS: ACETAMINOPHEN 325 MG TAB PO PRN (21:19)
[2017-01-14] MEDS: INSULIN LISPRO 100 UNIT/ML SC SCH ×9 (04:45→23:27)
[2017-01-14] MEDS: HEPARIN 5,000 UNIT/0.5 ML SYR SC SCH ×3 (05:51→23:04)
[2017-01-14] MEDS: DEXAMETHASONE 4 MG TAB PO SCH ×4 (05:51→23:05)
--- NOTE | 2017-01-14 07:38 | NEUSURGPN ---
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 Now s/p CABG. Plan: -Neuro stable this morning. Awake and alert -Continue Decadron 4mg q6hrs until surgery-rx on chart if able to find placement -Continue seizure prophx: Keppra bid -Please notify NS with any change in neuro/motor exam. -Spoke with Dr. Tinsley. Cardiology/NS/CT surgery would like to get patient up and moving with therapies. In house until brain sx next week. -Discussed with Dr. Tinsley- plan on surgery 01/19/17 -pt updated -call with any questions or concerns Subjective: Pt resting in bedside chair. Agrees with plan for sx next week. Objective: AAOx3 NAD VSS CN II-XII grossly intact MAEx4 Motor 5/5 BUE/BLE +LT Urinary Catheter in Place: No Catheter Insertion Date: 01/07/17 - Physician Discussed Patient with Dr.: Tinsley Neurosurgery Physical Exam - Vitals, I&O, Labs I and O 01/13/17 01/14/17 01/15/17 05:59 05:59 05:59 Intake Total 720 1450 Output Total 1600 1500 Balance -880 -50 Weight 69.1 kg 68.1 kg Intake: Oral (ml) 720 1450 Output: Urine (ml) 1600 1500 Toilet 1250 1500 Urinal 350 Other: Intake Quantity Yes Sufficient Number of Voids Toilet 1 3 1 Number of Stools Toilet 1 1 Bladder Scan Volume (ml) Toilet 325 Vital Signs Temp Pulse Resp BP Pulse Ox 36.6 C 52 L 17 136/53 H 92 01/14/17 04:00 01/14/17 04:00 01/14/17 04:00 01/14/17 04:00 01/14/17 04:00 Laboratory Results 01/10/17 03:30 01/09/17 04:00 ICD10 Worksheet Patient Problems: Problems Problem Status Onset Acute blood loss anemia Acute Brain mass Acute CAD, multiple vessel Acute Recent non-ST elevation myocardial infarction (NSTEMI) Acute S/P CABG x 3 Acute ~01/07/17 chronic disease mgmt/transitional Care Acute
[2017-01-14] MEDS: PANTOPRAZOLE SODIUM 40 MG TAB PO SCH (08:16)
[2017-01-14] MEDS: ASPIRIN 81 MG CHEWABLE TAB PO SCH (08:16)
[2017-01-14] MEDS: TAMSULOSIN HCL 0.4 MG CAP PO SCH (08:16)
[2017-01-14] MEDS: levETIRAcetam 500 MG TAB PO SCH ×2 (08:16→23:04)
[2017-01-14] MEDS: CARVEDILOL 3.125 MG TAB PO SCH ×2 (08:58→18:14)
[2017-01-14] MEDS: LISINOPRIL 5 MG TAB PO SCH (08:58)
--- NOTE | 2017-01-14 14:37 | HOSPPROG ---
Hospitalist Progress Note Assessment/Plan: Assessment/Plan: -s/p CABG, doing well post op -ischemic cardiomyopathy, mitral regurg, Pulm HTN: no CHF exacerbation at this time -brain mass resection scheduled 01/19/17 -diabetes mellitus type 2; sugars are in good range at present, will follow -encephalopathy/delirium ?brain mass related vs steroids vs hospitalization -pressure skin injury, sacrum w redness PLANS: continue current insulin doses and follow closely; note that he is on steroid for tumor and if this is eventually stopped he may need to have decrease in diabetes cardiac care per cardiology and cv surg 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 still noted to be confused Objective: Vital Signs Temp Pulse Resp BP Pulse Ox 36.6 C 69 18 142/56 H 93 01/14/17 11:09 01/14/17 11:09 01/14/17 11:09 01/14/17 11:09 01/14/17 11:09 Laboratory Results 01/10/17 03:30 01/09/17 04:00 01/13/17 01/14/17 01/15/17 05:59 05:59 05:59 Intake Total 720 1450 Output Total 1600 1500 Balance -880 -50 gen nad cv rrr pulm clear abd soft +bs ext no edema ICD10 Worksheet Patient Problems: Problems Problem Status Onset chronic disease mgmt/transitional Care Acute Recent non-ST elevation myocardial infarction (NSTEMI) Acute Acute blood loss anemia Acute S/P CABG x 3 Acute ~01/07/17 CAD, multiple vessel Acute Brain mass Acute
[2017-01-14] MEDS ORDERED: LORazepam 0.5 MG TAB PO ONE (17:15)
[2017-01-14] MEDS: ATORVASTATIN CALCIUM 40 MG TAB PO SCH (23:04)
[2017-01-14] MEDS: INSULIN GLARGINE 100 UNITS/ML SYRINGE SC SCH (23:19)
[2017-01-14] MEDS: LORazepam 1 MG TAB PO SCH (23:20)
[2017-01-15] MEDS: INSULIN LISPRO 100 UNIT/ML SC SCH ×9 (03:10→22:26)
[2017-01-15] MEDS: DEXAMETHASONE 4 MG TAB PO SCH ×3 (06:12→17:42)
[2017-01-15] MEDS: HEPARIN 5,000 UNIT/0.5 ML SYR SC SCH ×3 (06:12→22:27)
[2017-01-15] MEDS: TAMSULOSIN HCL 0.4 MG CAP PO SCH (08:36)
[2017-01-15] MEDS: levETIRAcetam 500 MG TAB PO SCH ×2 (08:36→22:26)
[2017-01-15] MEDS: ASPIRIN 81 MG CHEWABLE TAB PO SCH (08:36)
[2017-01-15] MEDS: CARVEDILOL 3.125 MG TAB PO SCH ×2 (08:36→17:42)
[2017-01-15] MEDS: PANTOPRAZOLE SODIUM 40 MG TAB PO SCH (08:36)
[2017-01-15] MEDS: LISINOPRIL 5 MG TAB PO SCH (08:36)
--- NOTE | 2017-01-15 10:02 | SOAPPROG ---
[facility] Progress Note Assessment/Plan: Assessment: 71 year old man with large recurrent left occipital meningioma Plan: - awaiting surgery (which will be two weeks after CABG as requested) - continue decadron - patient is very agitated about having to stay so long, getting ativan chronically - PT/OT 01/15/17 10:00 Subjective: complaints only of having to stay in hospital Objective: Vital Signs Temp Pulse Resp BP Pulse Ox 36.4 C 95 18 125/55 H 95 01/15/17 08:00 01/15/17 08:00 01/15/17 08:00 01/15/17 08:00 01/15/17 08:00 Laboratory Results 01/10/17 03:30 01/09/17 04:00 01/14/17 01/15/17 01/16/17 05:59 05:59 05:59 Intake Total 1450 400 100 Output Total 1500 Balance -50 400 100 AAOx3 full strength/sensation no drift - Pending Discharge Pending Discharge Within 24 Hours: No Pending Discharge Within 48 Hours: No ICD10 Worksheet Patient Problems: Problems Problem Status Onset Acute blood loss anemia Acute Brain mass Acute CAD, multiple vessel Acute Recent non-ST elevation myocardial infarction (NSTEMI) Acute S/P CABG x 3 Acute ~01/07/17 chronic disease mgmt/transitional Care Acute
--- NOTE | 2017-01-15 10:56 | ASMTCMCOM ---
CM Note CM Note Notes: Per MD notes today, Pt. is "agitated" about having to stay in the hospital until his brain surgery "next ". Pt.. on chronic Ativan to assist in agitation. CM to follow. Date Signed: 01/15/2017 10:55 AM Electronically Signed By:Gilda Heck LCSW
--- NOTE | 2017-01-15 12:39 | HOSPPROG ---
Hospitalist Progress Note Assessment/Plan: Assessment/Plan: #s/p CABG, doing well post op #ischemic cardiomyopathy, mitral regurg, Pulm HTN: no CHF exacerbation at this time #brain mass resection scheduled 01/20/17 #diabetes mellitus type 2 sugar is elevated today after lantus was held 01/14 -will continue lantus and monitor for hypoglycemia #encephalopathy/delirium ?brain mass related vs steroids vs hospitalization -pressure skin injury, sacrum w redness Subjective: pt is irritated that he needs to stay in hospital awaiting his surgery. His sister thinks he is too weak and unsafe to go home independently. Objective: Vital Signs Temp Pulse Resp BP Pulse Ox 36.4 C 95 18 125/55 H 95 01/15/17 08:00 01/15/17 08:00 01/15/17 08:00 01/15/17 08:00 01/15/17 08:00 Laboratory Results 01/10/17 03:30 01/09/17 04:00 01/14/17 01/15/17 01/16/17 05:59 05:59 05:59 Intake Total 1450 400 100 Output Total 1500 Balance -50 400 100 - Physical Exam Constitutional: no apparent distress, appears nourished, not in pain Cardiovascular: regular rate and rhythym, no murmur, rub, or gallop Respiratory: no respiratory distress, no rales or rhonchi, clear to auscultation Skin: no rashes or abrasions, no fluctuance, no induration ICD10 Worksheet Patient Problems: Problems Problem Status Onset chronic disease mgmt/transitional Care Acute Recent non-ST elevation myocardial infarction (NSTEMI) Acute Acute blood loss anemia Acute S/P CABG x 3 Acute ~01/07/17 CAD, multiple vessel Acute Brain mass Acute
[2017-01-15] MEDS: ATORVASTATIN CALCIUM 40 MG TAB PO SCH (22:26)
[2017-01-15] MEDS: LORazepam 1 MG TAB PO SCH (22:26)
[2017-01-15] MEDS: INSULIN GLARGINE 100 UNITS/ML SYRINGE SC SCH (22:28)
[2017-01-16] MEDS: DEXAMETHASONE 4 MG TAB PO SCH ×5 (01:38→22:12)
[2017-01-16] MEDS: INSULIN LISPRO 100 UNIT/ML SC SCH ×9 (03:19→20:17)
[2017-01-16] MEDS: HEPARIN 5,000 UNIT/0.5 ML SYR SC SCH ×3 (07:31→20:18)
[2017-01-16] MEDS: ASPIRIN 81 MG CHEWABLE TAB PO SCH (08:34)
[2017-01-16] MEDS: levETIRAcetam 500 MG TAB PO SCH ×2 (08:34→20:25)
[2017-01-16] MEDS: TAMSULOSIN HCL 0.4 MG CAP PO SCH (08:34)
[2017-01-16] MEDS: CARVEDILOL 3.125 MG TAB PO SCH ×2 (08:34→16:59)
[2017-01-16] MEDS: LISINOPRIL 5 MG TAB PO SCH (08:34)
--- NOTE | 2017-01-16 08:49 | SOAPPROG ---
[facility] Progress Note Assessment/Plan: Assessment: 71 year old man with large recurrent left occipital meningioma Plan: - awaiting surgery (which will be two weeks after CABG as requested) - continue decadron (will decrease dose to 4q8) - patient is less agitated today - PT/OT 01/15/17 10:00 01/16/17 08:47 Subjective: no new complaints Objective: Vital Signs Temp Pulse Resp BP Pulse Ox 36.8 C 70 16 122/66 H 93 01/16/17 07:39 01/16/17 07:39 01/16/17 07:39 01/16/17 07:39 01/16/17 07:39 Laboratory Results 01/10/17 03:30 01/09/17 04:00 01/15/17 01/16/17 01/17/17 05:59 05:59 05:59 Intake Total 400 1620 Output Total 700 Balance 400 920 AAOx3 full strength/sensation, no drift wounds c/d/i - Pending Discharge Pending Discharge Within 24 Hours: No Pending Discharge Within 48 Hours: No ICD10 Worksheet Patient Problems: Problems Problem Status Onset Acute blood loss anemia Acute Brain mass Acute CAD, multiple vessel Acute Recent non-ST elevation myocardial infarction (NSTEMI) Acute S/P CABG x 3 Acute ~01/07/17 chronic disease mgmt/transitional Care Acute
--- NOTE | 2017-01-16 13:52 | HOSPPROG ---
Hospitalist Progress Note Assessment/Plan: Assessment/Plan: #s/p CABG, doing well post op #ischemic cardiomyopathy, mitral regurg, Pulm HTN: no CHF exacerbation at this time #brain mass resection scheduled 01/20/17 #diabetes mellitus type 2 -will continue lantus and correctional insulin #encephalopathy/delirium ?brain mass related vs steroids vs hospitalization #pressure skin injury, sacrum w redness dispo: pt has been getting anxious in the hospital. prn ativan has helped. anxiety and agitation likely worsened by Decadron Subjective: slept last night. agreeable to remain in hospital awaiting surgery Objective: Vital Signs Temp Pulse Resp BP Pulse Ox 36.4 C 73 14 116/39 L 92 01/16/17 11:40 01/16/17 11:40 01/16/17 11:40 01/16/17 11:40 01/16/17 11:40 Laboratory Results 01/10/17 03:30 01/09/17 04:00 01/15/17 01/16/17 01/17/17 05:59 05:59 05:59 Intake Total 400 1620 Output Total 700 Balance 400 920 - Physical Exam Constitutional: no apparent distress, appears nourished, not in pain Cardiovascular: regular rate and rhythym, no murmur, rub, or gallop Respiratory: no respiratory distress, no rales or rhonchi, clear to auscultation ICD10 Worksheet Patient Problems: Problems Problem Status Onset chronic disease [facility] hospital/transitional Care Acute Recent non-ST elevation myocardial infarction (NSTEMI) Acute Acute blood loss anemia Acute S/P CABG x 3 Acute ~01/07/17 CAD, multiple vessel Acute Brain mass Acute
[2017-01-16] MEDS: ACETAMINOPHEN 325 MG TAB PO PRN (16:49)
[2017-01-16] MEDS: INSULIN GLARGINE 100 UNITS/ML SYRINGE SC SCH (20:17)
[2017-01-16] MEDS: LORazepam 1 MG TAB PO SCH (20:25)
[2017-01-16] MEDS: ATORVASTATIN CALCIUM 40 MG TAB PO SCH (20:26)
[2017-01-17] MEDS: INSULIN LISPRO 100 UNIT/ML SC SCH ×9 (00:21→18:41)
[2017-01-17] MEDS: HEPARIN 5,000 UNIT/0.5 ML SYR SC SCH ×3 (05:50→21:36)
[2017-01-17] MEDS: DEXAMETHASONE 4 MG TAB PO SCH ×3 (05:50→21:38)
--- NOTE | 2017-01-17 08:05 | NEUSURGPN ---
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 Now s/p CABG. Plan: -Neuro stable this morning. Awake and alert -Continue Decadron 4mg q6hrs until surgery -Continue seizure prophx: Keppra bid -Please notify NS with any change in neuro/motor exam. -Spoke with Dr. Tinsley. Cardiology/NS/CT surgery would like to get patient up and moving with therapies. In house until brain sx later this week. -Discussed with Dr. Tinsley- plan on surgery 01/20/17 () -call with any questions or concerns Subjective: Denies any new pain Objective: NAD Alert and Cooperative MAEx4 07/23 and equal in BUE and BLE. Catheter Insertion Date: 01/07/17 - Physician Discussed Patient with Dr.: Tinsley Neurosurgery Physical Exam - Vitals, I&O, Labs I and O 01/16/17 01/17/17 01/18/17 05:59 05:59 05:59 Intake Total 1620 320 Output Total 700 Balance 920 320 Weight 67.7 kg 67.8 kg Intake: Oral (ml) 1620 320 IV Intake (ml) 0 Output: Urine (ml) 700 Toilet 700 Other: Intake Quantity Yes Sufficient Number of Voids Incontinence 1 Toilet 1 1 Vital Signs Temp Pulse Resp BP Pulse Ox 36.1 C 76 17 142/63 H 94 01/17/17 04:00 01/17/17 04:00 01/17/17 04:00 01/17/17 04:00 01/17/17 04:00 Laboratory Results 01/10/17 03:30 01/09/17 04:00 ICD10 Worksheet Patient Problems: Problems Problem Status Onset Acute blood loss anemia Acute Brain mass Acute CAD, multiple vessel Acute Recent non-ST elevation myocardial infarction (NSTEMI) Acute S/P CABG x 3 Acute ~01/07/17 chronic disease mgmt/transitional Care Acute - ICD10 Problem Qualifiers (1) Brain mass
[2017-01-17] MEDS: ASPIRIN 81 MG CHEWABLE TAB PO SCH (10:01)
[2017-01-17] MEDS: LISINOPRIL 5 MG TAB PO SCH (10:02)
[2017-01-17] MEDS: TAMSULOSIN HCL 0.4 MG CAP PO SCH (10:04)
[2017-01-17] MEDS: CARVEDILOL 3.125 MG TAB PO SCH ×2 (10:04→17:42)
[2017-01-17] MEDS: levETIRAcetam 500 MG TAB PO SCH ×2 (10:04→21:37)
[2017-01-17] MEDS: traMADol 50 MG TAB PO PRN ×2 (15:40→21:37)
--- NOTE | 2017-01-17 17:08 | HOSPPROG ---
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 able increase mobility as able resection of brain lesion per surgeons later this week SUBJECTIVE: feels okay today OBJECTIVE: vitals: stable without fever card monitor: NSR exam: oriented and interactive today skin good color and cap refill resps easy lungs coarse, no wheeze or rales heart regular incision looks very good abd soft nontender nondistended minimal edema Objective: Vital Signs Temp Pulse Resp BP Pulse Ox 36.5 C 86 16 141/73 H 96 01/17/17 16:00 01/17/17 16:00 01/17/17 16:00 01/17/17 16:00 01/17/17 16:00 Laboratory Results 01/10/17 03:30 01/09/17 04:00 01/16/17 01/17/17 01/18/17 06:59 06:59 06:59 Intake Total 1520 320 Output Total 700 Balance 820 320 ICD10 Worksheet Patient Problems: Problems Problem Status Onset Acute blood loss anemia Acute Brain mass Acute CAD, multiple vessel Acute Recent non-ST elevation myocardial infarction (NSTEMI) Acute S/P CABG x 3 Acute ~01/07/17 chronic disease mgmt/transitional Care Acute
[2017-01-17] MEDS: INSULIN GLARGINE 100 UNITS/ML SYRINGE SC SCH (21:36)
[2017-01-17] MEDS: LORazepam 1 MG TAB PO SCH (21:37)
[2017-01-17] MEDS: ATORVASTATIN CALCIUM 40 MG TAB PO SCH (21:38)
[2017-01-18] MEDS: DEXAMETHASONE 4 MG TAB PO SCH ×3 (05:56→22:07)
[2017-01-18] MEDS: HEPARIN 5,000 UNIT/0.5 ML SYR SC SCH ×3 (05:56→22:07)
[2017-01-18] MEDS: TAMSULOSIN HCL 0.4 MG CAP PO SCH (08:15)
[2017-01-18] MEDS: levETIRAcetam 500 MG TAB PO SCH ×2 (08:15→22:07)
[2017-01-18] MEDS: CARVEDILOL 3.125 MG TAB PO SCH ×2 (08:15→18:31)
[2017-01-18] MEDS: LISINOPRIL 5 MG TAB PO SCH (08:15)
[2017-01-18] MEDS: INSULIN LISPRO 100 UNIT/ML SC SCH ×6 (08:16→18:31)
--- NOTE | 2017-01-18 08:25 | NEUSURGPN ---
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 Now s/p CABG. Surgery for resection/debulking of brain mass planned for . Plan: -Neuro stable this morning. Awake and alert -Continue Decadron 4mg q6hrs until surgery -Continue seizure prophx: Keppra bid -Please notify NS with any change in neuro/motor exam. -Appreciate medical consultation -Discussed with Dr. Tinsley- plan on surgery 01/20/17 () -call with any questions or concerns Subjective: Denies any headaches. States vision has noticed an improvement in vision as compared to prior to admission Objective: Sitting, eating breakfast this morning. NAD A&Ox3 MAEx4, Face symmetrical Catheter Insertion Date: 01/07/17 - Physician Discussed Patient with Dr.: Tinsley Neurosurgery Physical Exam - Vitals, I&O, Labs I and O 01/17/17 01/18/17 01/19/17 05:59 05:59 05:59 Intake Total 320 440 300 Balance 320 440 300 Weight 67.8 kg 68.2 kg Intake: Oral (ml) 320 440 300 Other: Number of Voids Toilet 1 1 Vital Signs Temp Pulse Resp BP Pulse Ox 36.6 C 61 15 122/57 H 92 01/18/17 07:16 01/18/17 07:16 01/18/17 07:16 01/18/17 07:16 01/18/17 07:16 Laboratory Results 01/10/17 03:30 01/09/17 04:00 ICD10 Worksheet Patient Problems: Problems Problem Status Onset Acute blood loss anemia Acute Brain mass Acute CAD, multiple vessel Acute Recent non-ST elevation myocardial infarction (NSTEMI) Acute S/P CABG x 3 Acute ~01/07/17 chronic disease mgmt/transitional Care Acute - ICD10 Problem Qualifiers (1) Brain mass
--- NOTE | 2017-01-18 12:27 | ASMTCMCOM ---
CM Note CM Note Notes: 01/18/2017 Case Management Note Surgery planned for per chart. Case Management d/c needs to be determined during post op recovery period. Case Management to continue to follow. Date Signed: 01/18/2017 12:26 PM Electronically Signed By:Brittni Winter RN
[2017-01-18] MEDS: traMADol 50 MG TAB PO PRN ×2 (14:19→22:07)
--- NOTE | 2017-01-18 16:42 | HOSPPROG ---
Hospitalist Progress Note Assessment/Plan: DIAGNOSES: -s/p CABG, doing well post op -ischemic cardiomyopathy, mitral regurg, Pulm HTN: no CHF exacerbation at this time -brain mass, plan for eventual resection -diabetes mellitus type 2; sugars continuing reasonable range overall with some occasional high sugars but no lows -encephalopathy/confusion, improving -pressure skin injury, sacrum w redness PLANS: continue current insulin doses and follow closely; (note that he is on steroid for tumor and if this is eventually stopped he may need to have decrease in diabetes medication) cardiac care per cardiology and cv surg 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 increase mobility as able resection of brain lesion current we planned for January 20 SUBJECTIVE: Says overall he feels a slight malaise today but otherwise okay OBJECTIVE: vitals: stable without fever card monitor: NSR exam: oriented, relaxed resps easy lungs clear Breath sounds heart regular incision looks very good abd soft nontender nondistended minimal edema Objective: Vital Signs Temp Pulse Resp BP Pulse Ox 36.9 C 87 14 113/49 L 94 01/18/17 15:31 01/18/17 15:31 01/18/17 15:31 01/18/17 15:31 01/18/17 15:31 Laboratory Results 01/10/17 03:30 01/09/17 04:00 01/17/17 01/18/17 01/19/17 06:59 06:59 06:59 Intake Total 938 435 2719 Balance 398 175 5572 ICD10 Worksheet Patient Problems: Problems Problem Status Onset Acute blood loss anemia Acute Brain mass Acute CAD, multiple vessel Acute Recent non-ST elevation myocardial infarction (NSTEMI) Acute S/P CABG x 3 Acute ~01/07/17 chronic disease mgmt/transitional Care Acute
[2017-01-18] MEDS: INSULIN GLARGINE 100 UNITS/ML SYRINGE SC SCH (22:07)
[2017-01-18] MEDS: LORazepam 1 MG TAB PO SCH (22:07)
[2017-01-18] MEDS: ATORVASTATIN CALCIUM 40 MG TAB PO SCH (22:08)
[2017-01-19] MEDS: HEPARIN 5,000 UNIT/0.5 ML SYR SC SCH ×2 (05:49→15:25)
[2017-01-19] MEDS: DEXAMETHASONE 4 MG TAB PO SCH ×3 (05:49→21:30)
--- NOTE | 2017-01-19 08:25 | NEUSURGPN ---
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 Now s/p CABG. Surgery for resection/debulking of brain mass planned for . Plan: -Neuro stable this morning. Awake and alert -Continue Decadron 4mg q6hrs until surgery -Continue seizure prophx: Keppra bid -Please notify NS with any change in neuro/motor exam. -Appreciate medical consultation -Discussed with Dr. Tinsley- plan on surgery 01/20/17 () at 1pm -Will get Stealth MRI 01/20 am -NPO after midnight -Consent signed on chart -call with any questions or concerns Discussed with Dr Tinsley Subjective: Patient doing well, waiting to order breakfast Objective: NAD A&Ox3 MAEx4 CN 2-12 grossly intact Face symmetrical Neuro Check Frequency: per routine Urinary Catheter in Place: No Catheter Insertion Date: 01/07/17 - Physician Discussed Patient with Dr.: Tinsley Neurosurgery Physical Exam - Vitals, I&O, Labs I and O 01/18/17 01/19/17 01/20/17 05:59 05:59 05:59 Intake Total 440 1800 Balance 440 1800 Weight 68.2 kg 68.7 kg Intake: Oral (ml) 440 1800 Other: Number of Voids Toilet 1 2 Vital Signs Temp Pulse Resp BP Pulse Ox 36.6 C 71 19 141/68 H 94 01/19/17 04:00 01/19/17 04:00 01/19/17 04:00 01/19/17 04:00 01/19/17 04:00 Laboratory Results 01/10/17 03:30 01/09/17 04:00 ICD10 Worksheet Patient Problems: Problems Problem Status Onset Acute blood loss anemia Acute Brain mass Acute CAD, multiple vessel Acute Recent non-ST elevation myocardial infarction (NSTEMI) Acute S/P CABG x 3 Acute ~01/07/17 chronic disease mgmt/transitional Care Acute
[2017-01-19] MEDS: INSULIN LISPRO 100 UNIT/ML SC SCH ×6 (09:11→17:06)
[2017-01-19] MEDS: levETIRAcetam 500 MG TAB PO SCH ×2 (09:12→21:30)
[2017-01-19] MEDS: TAMSULOSIN HCL 0.4 MG CAP PO SCH (09:13)
[2017-01-19] MEDS: CARVEDILOL 3.125 MG TAB PO SCH ×2 (09:13→17:05)
[2017-01-19] MEDS: LISINOPRIL 5 MG TAB PO SCH (09:13)
--- NOTE | 2017-01-19 13:33 | HOSPPROG ---
Hospitalist Progress Note Assessment/Plan: DIAGNOSES: -s/p CABG, doing well post op -ischemic cardiomyopathy, mitral regurg, Pulm HTN: no CHF exacerbation at this time -brain mass, plan for eventual resection -diabetes mellitus type 2 -encephalopathy/confusion, notably improved since his bypass surgery indicating that he was probably not perfusing very well at home -pressure skin injury, sacrum w redness PLANS: Slight increase in his pre meal short-acting insulin dose and will continue follow sugars closely; (note that he is on steroid for tumor and if this is eventually stopped he may need to have decrease in diabetes medication) cardiac care per cardiology and cv surg 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 as able increase mobility as able resection of brain lesion current we planned for January 20 SUBJECTIVE: States he feels reasonably well, no new acute symptoms No Headache No cardiac symptoms OBJECTIVE: vitals: stable without fever card monitor: NSR exam: oriented, relaxed resps easy lungs clear Breath sounds heart regular incision looks very good abd soft nontender nondistended minimal edema Blood sugars still somewhat variable but overall in reasonable range right now Objective: Vital Signs Temp Pulse Resp BP Pulse Ox 36.8 C 79 20 108/40 L 93 01/19/17 12:00 01/19/17 12:00 01/19/17 12:00 01/19/17 12:00 01/19/17 12:00 Laboratory Results 01/10/17 03:30 01/09/17 04:00 01/18/17 01/19/17 01/20/17 06:59 06:59 06:59 Intake Total 740 1500 480 Balance 740 1500 480 ICD10 Worksheet Patient Problems: Problems Problem Status Onset Acute blood loss anemia Acute Brain mass Acute CAD, multiple vessel Acute Recent non-ST elevation myocardial infarction (NSTEMI) Acute S/P CABG x 3 Acute ~01/07/17 chronic disease mgmt/transitional Care Acute
[2017-01-19] MEDS: traMADol 50 MG TAB PO PRN ×2 (15:34→21:30)
[2017-01-19] MEDS: LORazepam 1 MG TAB PO SCH (21:30)
[2017-01-19] MEDS: ATORVASTATIN CALCIUM 40 MG TAB PO SCH (21:30)
[2017-01-19] MEDS: INSULIN GLARGINE 100 UNITS/ML SYRINGE SC SCH (23:51)
[2017-01-20] MEDS: DEXAMETHASONE 4 MG TAB PO SCH ×3 (06:05→18:27)
[2017-01-20 08:56] LABS: ANION GAP 8 mEq/L (8-16); CALCIUM 8.2 mg/dL (8.5-10.4); CARBON DIOXIDE 25 mEq/l (22-31); CHLORIDE 101 mEq/L (97-110); CREATININE 0.6 mg/dL (0.7-1.3); GLOMERULAR FILTRATION RATE > 60; GLUCOSE 145 mg/dL (70-100); POTASSIUM 4.1 mEq/L (3.5-5.2); SODIUM 134 mEq/L (134-144)
[2017-01-20] MEDS: levETIRAcetam 500 MG TAB PO SCH ×2 (09:14→20:35)
[2017-01-20] MEDS: CARVEDILOL 3.125 MG TAB PO SCH ×2 (09:14→18:13)
--- NOTE | 2017-01-20 09:24 | HOSPPROG ---
Hospitalist Progress Note Assessment/Plan: # CAD - patient is s/p CABG. Asymptomatic. Continue current medical management. # Brain Mass - surgery planned for today. He has a history of meningioma removal in 2008. # Leukocytosis - repeat in AM. # Encephalopathy - seems clear today. Follow closely. # DM2 - holding short acting today while NPO. Discussed with his nurse, Donald , today. # Bowel/Bladder - holding Flomax today. # DVT prophylaxis - resume when felt okay by neurosurgery. # Dispo - will see how he does with PT/OT after surgery to decide on placement at time of discharge. Subjective: No acute events overnight. His POA was at the bedside and updated on the plan for today. MRI and surgery this afternoon. He asks when he can eat and I shared that we would let him eat as soon as possible after surgery. Objective: Vital Signs Temp Pulse Resp BP Pulse Ox 36.8 C 63 15 120/56 L 94 01/20/17 08:00 01/20/17 08:00 01/20/17 08:00 01/20/17 08:00 01/20/17 08:00 Laboratory Results 01/10/17 03:30 01/20/17 08:20 01/19/17 01/20/17 01/21/17 05:59 05:59 05:59 Intake Total 1800 880 Balance 1800 880 ICD10 Worksheet Patient Problems: Problems Problem Status Onset Acute blood loss anemia Acute Brain mass Acute CAD, multiple vessel Acute Recent non-ST elevation myocardial infarction (NSTEMI) Acute S/P CABG x 3 Acute ~01/07/17 chronic disease mgmt/transitional Care Acute
[2017-01-20] MEDS ORDERED: GADOBUTROL 10 ML VIAL IVP ONE (09:33)
[2017-01-20] MEDS: INSULIN LISPRO 100 UNIT/ML SC SCH ×6 (11:34→18:35)
[2017-01-20] MEDS: TAMSULOSIN HCL 0.4 MG CAP PO SCH (11:36)
[2017-01-20] MEDS: LISINOPRIL 5 MG TAB PO SCH (11:36)
[2017-01-20] MEDS ORDERED: CHLORHEXIDINE GLUC HIBICLENS 118 ML BTL TP ONE (12:14)
[2017-01-20] MEDS ORDERED: BACITRACIN ZINC 14.2 GM OINTTUBE TP ONE (12:14)
[2017-01-20] MEDS ORDERED: SURGIFLO MATRIX KIT WITH THROMBIN TP ONE ×3 (12:14→14:20)
[2017-01-20] MEDS ORDERED: BUPIVACAINE 0.25% 30 ML SDV ONE (12:15)
[2017-01-20] MEDS ORDERED: THROMBIN (BOVINE) 5,000 UNIT VIAL TP ONE (12:15)
[2017-01-20] MEDS ORDERED: AVITENE POWDER 1 GM JAR TP ONE ×2 (12:15→12:29)
[2017-01-20] MEDS ORDERED: MANNITOL 20% 100 GM/500 ML BAG IV ONE (12:15)
[2017-01-20] MEDS ORDERED: HYDROGEN PEROXIDE 236 ML BOTTLE TP ONE (12:16)
[2017-01-20] MEDS ORDERED: GENTAMICIN SULFATE 80 MG/2 ML VIAL ONE (12:16)
[2017-01-20] MEDS ORDERED: POVIDONE-IODINE 30 GM OINTTUBE TP ONE (12:16)
[2017-01-20] MEDS ORDERED: LR 1,000 ML IV ONE (12:20)
[2017-01-20] MEDS ORDERED: REMIFENTANIL HCL 1 MG VIAL ONE ×4 (12:33→16:15)
[2017-01-20] MEDS ORDERED: PROPOFOL/EMULSION 500 MG/50 ML BOTTLE IV ONE ×3 (12:34)
[2017-01-20] MEDS ORDERED: SUCCINYLCHOLINE CHLORIDE*ANESTHESIA ONLY*200 MG/10 ML SYR IVP ONE (12:45)
[2017-01-20] MEDS ORDERED: LIDOCAINE 2% 5 ML SDV ONE (12:46)
--- NOTE | 2017-01-20 12:57 | PDANEPAE ---
ANE History of Present Illness L Crani for Meningioma resection ANE Past Medical History - Cardiovascular History Hx Hypertension: Yes Hx Arrhythmias: No Hx Chest Pain: Yes Hx Coronary Artery / Peripheral Vascular Disease: Yes Hx CHF / Valvular Disease: Yes Hx Palpitations: No - Pulmonary History Hx COPD: No Hx Asthma/Reactive Airway Disease: No Hx Recent Upper Respiratory Infection: No Hx Oxygen in Use at Home: No Hx Sleep Apnea: No Sleep Apnea Screening Result - Last Documented: Negative - Neurologic History Hx Cerebrovascular Accident: No Hx Seizures: No Hx Dementia: No Neurologic History Comment: tumor - Endocrine History Hx Diabetes: Yes - Renal History Hx Renal Disorders: No - Liver History Hx Hepatic Disorders: No - Surgical History Prior Surgeries: brain tumor resection ANE Review of Systems Review of Systems: ANE Patient History - Allergies Allergies/Adverse Reactions: No Known Allergies Allergy (Unverified 01/06/17 14:07) - Home Medications Home Medications: Acetaminophen [Tylenol 325mg (*)] 650 mg PO Q4HRS PRN 01/06/17 [Last Taken Unknown] Aspirin [Aspirin 81mg (*)] 81 mg PO DAILY 01/06/17 [Last Taken Unknown] Atorvastatin Calcium [Lipitor 40 mg (*)] 80 mg PO HS 01/06/17 [Last Taken Unknown] Carvedilol [Coreg (*)] 3.125 mg PO BIDMEAL 01/06/17 [Last Taken Unknown] Dexamethasone [Decadron 4mg/ml inj (*)] 4 mg IV Q6HRS 01/06/17 [Last Taken Unknown] Insulin Glargine [Lantus 100 UNITS/ML (*)] 0.2 ml SC HS 01/06/17 [Last Taken Unknown] Insulin Lispro [humALOG LISPRO 100 units/ml (*)] 1 - 20 unit SC Q6HRS 01/06/17 [ Last Taken Unknown] LORazepam [Ativan (*)] 2 mg PO HS 01/06/17 [Last Taken Unknown] Lisinopril [Zestril 2.5 mg (*)] 2.5 mg PO DAILY 01/06/17 [Last Taken Unknown] Ondansetron HCl Pf [Zofran 4 mg Inj (*)] 4 mg IV Q4HRS PRN 01/06/17 [Last Taken Unknown] Piperacillin/Tazo 3.375 gm/Dex [Zosyn 3.375 gm (Premix)] 3.375 gm IV Q8HRS 01/06 [Last Taken Unknown] Polyethylene Glycol 3350 [Miralax 17 gm (*)] 17 gm PO DAILY PRN 01/06/17 [Last Taken Unknown] Sennosides/Docusate Sodium [Senna-S Tablet] 1 each PO DAILY 01/06/17 [Last Taken Unknown] Vancomycin/0.9 % Sod Chloride [Vancomycin 1 G/100Ml-0.9% NaCl] 1 gm IV BID 01/06 [Last Taken Unknown] fentaNYL [Sublimaze] 25 - 50 mcg IV Q1HR PRN 01/06/17 [Last Taken Unknown] metFORMIN HCL [Glucophage 500 mg (*)] 500 mg PO DAILY 01/06/17 [Last Taken Unknown] oxyCODONE IR [Oxycodone Ir (*)] 5 - 10 mg PO Q4HRS PRN 01/06/17 [Last Taken Unknown] - NPO status NPO Since - Liquids (Date): 01/19/17 NPO Since - Liquids (Time): 22:00 NPO Since - Solids (Date): 01/19/17 NPO Since - Solids (Time): 22:00 - Smoking Hx Smoking Status: Former smoker ANE Labs/Vital Signs - Labs Result Diagrams: 01/10/17 03:30 01/20/17 08:20 - Vital Signs Blood Pressure: 120/56 Heart Rate: 63 Respiratory Rate: 15 O2 Sat (%): 94 Height: 170.18 cm Weight: 68.7 kg ANE Physical Exam - Airway Neck exam: FROM Mallampati Score: Class 2 Mouth exam: poor dentition - Pulmonary Pulmonary: clear to auscultation - Cardiovascular Cardiovascular: regular rate and rhythym - ASA Status ASA Status: III ANE Anesthesia Plan Anesthesia Plan: general endotracheal anesthesia Lines/Monitors: arterial line, additional IV Total IV Anesthesia: Yes
[2017-01-20] MEDS ORDERED: ceFAZolin 2 GM/SWFI 2 GM/20 ML SYR IVP ONE (13:00)
--- NOTE | 2017-01-20 13:01 | NEUSURGPN ---
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 Now s/p CABG. Surgery for resection/debulking of brain mass planned for today. Plan: -Neuro stable this morning. Awake and alert -Continue Decadron 4mg q6hrs until surgery -Continue seizure prophx: Keppra bid -Please notify NS with any change in neuro/motor exam. -Appreciate medical consultation -Had stealth MRI this morning -Consent signed on chart -Preop orders in and marked -call with any questions or concerns Discussed with Dr Tinsley Subjective: Patient in preop. Waiting for surgery. Denies headaches. Objective: NAD A&Ox3 MAEx4 CN 2-12 grossly intact Face symmetrical Catheter Insertion Date: 01/07/17 - Physician Discussed Patient with Dr.: Tinsley Patient Seen by : [facility] Physical Exam - Vitals, I&O, Labs I and O 01/19/17 01/20/17 01/21/17 05:59 05:59 05:59 Intake Total 1800 880 Balance 1800 880 Weight 68.7 kg Intake: Oral (ml) 1800 880 Other: Number of Voids Toilet 2 4 Vital Signs Temp Pulse Resp BP Pulse Ox 36.8 C 63 15 120/56 L 94 01/20/17 12:32 01/20/17 12:32 01/20/17 12:32 01/20/17 12:32 01/20/17 12:32 Laboratory Results 01/10/17 03:30 01/20/17 08:20 ICD10 Worksheet Patient Problems: Problems Problem Status Onset Acute blood loss anemia Acute Brain mass Acute CAD, multiple vessel Acute Recent non-ST elevation myocardial infarction (NSTEMI) Acute S/P CABG x 3 Acute ~01/07/17 chronic disease mgmt/transitional Care Acute
[2017-01-20] MEDS ORDERED: VASOPRESSIN 20 UNIT/ML VIAL ONE (13:41)
[2017-01-20] MEDS ORDERED: DEXAMETHASONE 4 MG/ML VIAL ONE ×3 (13:46)
[2017-01-20] MEDS ORDERED: ONDANSETRON 4 MG/2 ML VIAL IVP PRN ×3 (14:14→17:23)
[2017-01-20] MEDS ORDERED: fentaNYL 100 MCG/2 ML INJ IVP PRN ×2 (14:14→17:19)
[2017-01-20] MEDS ORDERED: ALBUTEROL 3 ML DEYVIAL IH PRN ×2 (14:14→17:19)
[2017-01-20] MEDS ORDERED: NALOXONE HCL 0.4 MG/ML INJ IVP PRN ×2 (14:14→17:19)
[2017-01-20] MEDS ORDERED: niCARdipine/NACL/200 ML BAG IV ONE (14:18)
[2017-01-20 14:22] LABS: % IMMATURE GRANULYOCYTES 0.8 % (0.0-1.1); ABSOLUTE IMMATURE GRANULOCYTES 0.11 10^3/uL (0.00-0.10); ADD DIFF? NO; ADD MORPH? NO; ADD SCAN? NO; ATYPICAL LYMPHOCYTE FLAG 0 (0-99); FRAGMENT RBC FLAG 0 (0-99); HEMATOCRIT 26.8 % (40.0-51.0); HEMOGLOBIN 9.4 g/dL (13.7-17.5); LEFT SHIFT FLG 0 (0-99); LIPEMIA HEMOLYSIS FLAG 90 (0-99); MEAN CELL HEMOGLOBIN 30.5 pg (27.9-34.1); MEAN CELL HEMOGLOBIN CONCENTR. 35.1 g/dL (32.4-36.7); MEAN PLATELET VOLUME 10.2 fL (8.7-11.7); PLATELET CLUMPS FLAG 10 (0-99); PLATELET COUNT 397 10^3/uL (150-400); RED BLOOD CELL COUNT 3.08 10^6/uL (4.40-6.38); RED CELL DISTRIBUTION WIDTH 14.7 % (11.5-15.2)
[2017-01-20] MEDS ORDERED: niCARdipine/NACL 200 ML IV SCH (14:30)
[2017-01-20] MEDS ORDERED: epHEDrine SULFATE 10 MG/ML SYR ONE ×2 (14:55)
[2017-01-20] MEDS ORDERED: INSULIN LISPRO 100 UNIT/ML SC ONE ×2 (15:22→15:30)
[2017-01-20] MEDS ORDERED: NS W/ 20 KCl/L 1,000 ML IV SCH (17:15)
[2017-01-20] MEDS ORDERED: MAGNESIUM HYDROXIDE 30 ML UDCUP PO PRN (17:15)
[2017-01-20] MEDS ORDERED: BISACODYL 10 MG SUPP PR PRN (17:15)
[2017-01-20] MEDS ORDERED: INSULIN REGULAR HUMAN 100 UNIT/ML SC ONE (17:19)
--- NOTE | 2017-01-20 17:22 | POSTANESTH ---
Post Anesthetic Evaluation Cardiovascular Status: Normal, Stable Respiratory Status: Normal, Stable Level of Consciousness/Mental Status: Can Participate in Eval, Moderately Sleepy Pain Control: Adequate, Prn Tx Ordered Nausea/Vomiting Control: Adequate, Prn Tx Ordered Complications Possibly Related to Anesthesia: None Noted
[2017-01-20] MEDS ORDERED: ONDANSETRON DISINTEGRATING 4 MG TAB PO PRN (17:23)
[2017-01-20] MEDS ORDERED: INSULIN REGULAR HUMAN 100 UNIT/ML ONE (17:23)
[2017-01-20] MEDS ORDERED: *MD ORDERING ONLY-DEXAMETHASONE TAPER PO SCH (17:30)
--- NOTE | 2017-01-20 17:39 | POSTOPPROG ---
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 s/ p CABG. Now sp left craniotomy for resection of mass. Plan: -Neuro stable. -Admit to ICU -SBP <140 -Decadron taper for 10 days starting at 10mg q6 -Continue seizure prophx: Keppra bid -Please notify NS with any change in neuro/motor exam. -Appreciate medical consultation -Postop MRI w and wo contrast in am -call with any questions or concerns Discussed with Dr Tinsley Subjective: Patient in PACU. Stable. Objective: NAD, VSS PERRL, EOMI MAEx4 CN 2-12 grossly intact Face symmetrical Incision c/d/i- wrapped and telfa stapled underneath 01/20/17 17:36 Objective: Vital Signs Temp Pulse Resp BP Pulse Ox 36.8 C 63 15 120/56 L 94 01/20/17 12:32 01/20/17 12:57 01/20/17 12:57 01/20/17 12:57 01/20/17 12:57 Laboratory Results 01/20/17 13:30 01/20/17 08:20 01/19/17 01/20/17 01/21/17 05:59 05:59 05:59 Intake Total 1800 880 Output Total 100 Balance 1800 880 -100
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
[2017-01-20] MEDS: traMADol 50 MG TAB PO PRN (18:35)
[2017-01-20] MEDS: LORazepam 1 MG TAB PO SCH (20:34)
[2017-01-20] MEDS: ATORVASTATIN CALCIUM 40 MG TAB PO SCH (20:35)
[2017-01-20] MEDS: FAMOTIDINE 20 MG TAB PO SCH (20:35)
[2017-01-20] MEDS: HYDROmorphONE/DILAUDID 1 MG/ML INJ IVP PRN (20:38)
[2017-01-20] MEDS: INSULIN GLARGINE 100 UNITS/ML SYRINGE SC SCH (21:36)
[2017-01-21] MEDS: DEXAMETHASONE 4 MG TAB PO SCH ×4 (00:04→17:43)
[2017-01-21] MEDS: HYDROmorphONE/DILAUDID 1 MG/ML INJ IVP PRN (03:11)
[2017-01-21 04:08] LABS: ADD MORPH? NO; ADD SCAN? YES; ATYPICAL LYMPHOCYTE FLAG 0 (0-99); FRAGMENT RBC FLAG 0 (0-99); HEMATOCRIT 28.1 % (40.0-51.0); HEMOGLOBIN 9.8 g/dL (13.7-17.5); LEFT SHIFT FLG 10 (0-99); LIPEMIA HEMOLYSIS FLAG 90 (0-99); MEAN CELL HEMOGLOBIN 30.4 pg (27.9-34.1); MEAN CELL HEMOGLOBIN CONCENTR. 34.9 g/dL (32.4-36.7); MEAN CELL VOLUME 87.3 fL (81.5-99.8); MEAN PLATELET VOLUME 9.3 fL (8.7-11.7); PLATELET CLUMPS FLAG 10 (0-99); PLATELET COUNT 407 10^3/uL (150-400); RED BLOOD CELL COUNT 3.22 10^6/uL (4.40-6.38); RED CELL DISTRIBUTION WIDTH 14.6 % (11.5-15.2)
[2017-01-21] MEDS: traMADol 50 MG TAB PO PRN ×3 (04:14→20:09)
[2017-01-21 04:42] LABS: ANION GAP 7 mEq/L (8-16); CALCIUM 8.3 mg/dL (8.5-10.4); CARBON DIOXIDE 25 mEq/l (22-31); CHLORIDE 104 mEq/L (97-110); CREATININE 0.6 mg/dL (0.7-1.3); GLOMERULAR FILTRATION RATE > 60; GLUCOSE 162 mg/dL (70-100); POTASSIUM 4.5 mEq/L (3.5-5.2); SODIUM 136 mEq/L (134-144)
[2017-01-21 04:43] LABS: ADD DIFF? YES; SCAN POSITIVE
[2017-01-21 04:49] LABS: PLATELET ESTIMATE ADEQUATE (ADEQ)
[2017-01-21] MEDS: INSULIN LISPRO 100 UNIT/ML SC SCH ×5 (08:13→17:43)
[2017-01-21] MEDS: levETIRAcetam 500 MG TAB PO SCH ×2 (08:18→20:03)
[2017-01-21] MEDS: FAMOTIDINE 20 MG TAB PO SCH ×2 (08:19→20:03)
[2017-01-21] MEDS: CARVEDILOL 3.125 MG TAB PO SCH ×2 (08:19→17:44)
[2017-01-21] MEDS: LISINOPRIL 5 MG TAB PO SCH (08:19)
[2017-01-21] MEDS: TAMSULOSIN HCL 0.4 MG CAP PO SCH (08:19)
--- NOTE | 2017-01-21 08:46 | NEUSURGPN ---
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 s/ p CABG. Now sp left craniotomy for resection of mass on 01/21/17 Plan: -Neuro stable. -Continue in ICU with Q2 hour neuro checks this morning -SBP <140 -Decadron taper for 10 days starting at 10mg q6 -Continue seizure prophx: Keppra bid -Please notify NS with any change in neuro/motor exam. -Appreciate medical consultation -Postop MRI w and wo contrast pending -call with any questions or concerns -Seen with Dr Tinsley Subjective: Mild headache. Denies any nausea, vomiting or change in vision. Objective: NAD A&Ox3 MAEx4 5/5 and equal in BUE and BLE. Incision c/d/i Vision stable with decreased right temporal vision. Catheter Insertion Date: 01/07/17 - Physician Patient Seen by Dr.: [facility] Neurosurgery Physical Exam - Vitals, I&O, Labs I and O 01/20/17 01/21/17 01/22/17 05:59 05:59 05:59 Intake Total 880 3025 Output Total 2850 Balance 880 175 Weight 68.7 kg 68.6 kg Intake: Oral (ml) 880 250 IV Intake (ml) 2000 IV Infused (ml) 775 NS W/ 20 KCl/L 1,000 ml @ 666 100 mls/hr IV CONT LAURA Rx#:[id number] niCARdipine/NACL 200 ml @ 109 Titrate IV CONT LAURA Rx#: [id number] Output: Urine (ml) 2750 Catheter 2650 Urinal 100 Estimated Blood Loss (ml) 100 Other: Number of Voids Toilet 4 Urinal 1 Vital Signs Temp Pulse Resp BP Pulse Ox 37 C 84 16 135/53 H 95 01/21/17 08:00 01/21/17 08:00 01/21/17 08:00 01/21/17 08:00 01/21/17 08:00 Laboratory Results 01/21/17 04:00 01/21/17 04:00 ICD10 Worksheet Patient Problems: Problems Problem Status Onset Acute blood loss anemia Acute Brain mass Acute CAD, multiple vessel Acute Recent non-ST elevation myocardial infarction (NSTEMI) Acute S/P CABG x 3 Acute ~01/07/17 chronic disease mgmt/transitional Care Acute - ICD10 Problem Qualifiers (1) Brain mass
--- NOTE | 2017-01-21 12:13 | ASMTCMCOM ---
CM Note CM Note Notes: Patient is POD #1 L craniotomy for tumor resection. He is POD #14 emergent CABG x 3. Therapies to resume working with patient. He will likely need SNF v inpatient rehab. A new inpt rehab eval order was placed today; SNF referrals were placed 01/10. CM will follow for discharge planning. Date Signed: 01/21/2017 12:12 PM Electronically Signed By:Karlene Andrade RN
[2017-01-21] MEDS ORDERED: GADOBUTROL 10 ML VIAL IVP ONE (16:04)
--- NOTE | 2017-01-21 17:26 | HOSPPROG ---
Hospitalist Progress Note Assessment/Plan: # CAD - patient is s/p CABG. Asymptomatic. Continue current medical management. # Brain Mass - now s/p surgery. He has a history of meningioma removal in 2008. Pain seems reasonably well control. # Leukocytosis - suspecting steroid response but quite dramatic elevation. Trend and monitor for fevers. # Encephalopathy - seems clear today. Follow closely. # DM2 - Lantus and humalog resumed. Patient states he is not on insulin at home. Check A1c with AM labs. # Bowel/Bladder - Flomax. Miralax. # DVT prophylaxis - resume when felt okay by neurosurgery. # Dispo - will see how he does with PT/OT after surgery to decide on placement at time of discharge. Subjective: Patient doing well after surgery yesterday. Pain seems well controlled. He was able to close his eyes and sleep towards the end of our visit. Family and friends update. Objective: Vital Signs Temp Pulse Resp BP Pulse Ox 36.8 C 82 13 103/26 L 94 01/21/17 12:00 01/21/17 15:00 01/21/17 15:00 01/21/17 15:00 01/21/17 15:00 Laboratory Results 01/21/17 04:00 01/21/17 04:00 01/20/17 01/21/17 01/22/17 05:59 05:59 05:59 Intake Total 880 3025 Output Total 2850 Balance 880 175 - Physical Exam Constitutional: no apparent distress, appears nourished, not in pain Cardiovascular: regular rate and rhythym, no murmur, rub, or gallop Respiratory: no respiratory distress, no rales or rhonchi, clear to auscultation Gastrointestinal: normoactive bowel sounds, soft, non-tender abdomen, no palpable masses Genitourinary: No chung in urethra Skin: other (surgical site appears clean without erythema and purulence) ICD10 Worksheet Patient Problems: Problems Problem Status Onset Acute blood loss anemia Acute Brain mass Acute CAD, multiple vessel Acute Recent non-ST elevation myocardial infarction (NSTEMI) Acute S/P CABG x 3 Acute ~01/07/17 chronic disease mgmt/transitional Care Acute
[2017-01-21] MEDS ORDERED: fentaNYL 100 MCG/2 ML INJ IVP PRN (17:28)
[2017-01-21] MEDS: LORazepam 1 MG TAB PO SCH (20:03)
[2017-01-21] MEDS: ATORVASTATIN CALCIUM 40 MG TAB PO SCH (20:03)
[2017-01-21] MEDS: INSULIN GLARGINE 100 UNITS/ML SYRINGE SC SCH (20:03)
[2017-01-22] MEDS: DEXAMETHASONE 4 MG TAB PO SCH ×4 (00:37→23:30)
[2017-01-22] MEDS: traMADol 50 MG TAB PO PRN ×2 (00:39→16:54)
--- NOTE | 2017-01-22 07:38 | SOAPPROG ---
[facility] Progress Note Assessment/Plan: Assessment: 71 year old man with large recurrent left occipital meningioma, POD# 2 s/p resection Plan: - post-op MRI shows gross total resection, no infarcts - PT/OT for rehab eval - will decrease decadron to 4q8 today, will need long taper over 3 weeks - will f/u in 2 weeks and will arrange XRT at that time - OK for d/c once rehab determined 01/22/17 07:35 Subjective: no new complaints Objective: Vital Signs Temp Pulse Resp BP Pulse Ox 37 C 63 11 L 112/45 L 97 01/22/17 05:59 01/22/17 05:59 01/22/17 05:59 01/22/17 05:59 01/22/17 05:59 Laboratory Results 01/21/17 04:00 01/21/17 04:00 01/21/17 01/22/17 01/23/17 05:59 05:59 04:59 Intake Total 3025 1550 Output Total 2850 Balance 175 1550 AAOx3, full strenght and sensation, no drift, mild right visual field cut ( seems stable from pre-op, not complete) - Pending Discharge Pending Discharge Within 24 Hours: No Pending Discharge Within 48 Hours: Yes Pending Discharge Date: 01/24/17 Pending Discharge Time: 11:00 ICD10 Worksheet Patient Problems: Problems Problem Status Onset Acute blood loss anemia Acute Brain mass Acute CAD, multiple vessel Acute Recent non-ST elevation myocardial infarction (NSTEMI) Acute S/P CABG x 3 Acute ~01/07/17 chronic disease mgmt/transitional Care Acute
[2017-01-22] MEDS: CARVEDILOL 3.125 MG TAB PO SCH ×2 (08:12→18:19)
[2017-01-22] MEDS: LISINOPRIL 5 MG TAB PO SCH (08:12)
[2017-01-22] MEDS: levETIRAcetam 500 MG TAB PO SCH ×2 (08:13→20:39)
[2017-01-22] MEDS: FAMOTIDINE 20 MG TAB PO SCH ×2 (08:13→20:39)
[2017-01-22] MEDS: INSULIN LISPRO 100 UNIT/ML SC SCH ×3 (08:13→18:18)
[2017-01-22] MEDS: TAMSULOSIN HCL 0.4 MG CAP PO SCH (08:13)
[2017-01-22 09:00] LABS: % IMMATURE GRANULYOCYTES 1.1 % (0.0-1.1); ABSOLUTE IMMATURE GRANULOCYTES 0.29 10^3/uL (0.00-0.10); ADD DIFF? NO; ADD MORPH? NO; ADD SCAN? NO; ATYPICAL LYMPHOCYTE FLAG 0 (0-99); FRAGMENT RBC FLAG 0 (0-99); HEMATOCRIT 30.9 % (40.0-51.0); HEMOGLOBIN 10.5 g/dL (13.7-17.5); LEFT SHIFT FLG 10 (0-99); LIPEMIA HEMOLYSIS FLAG 90 (0-99); MEAN CELL HEMOGLOBIN 30.2 pg (27.9-34.1); MEAN CELL VOLUME 88.8 fL (81.5-99.8); MEAN PLATELET VOLUME 9.5 fL (8.7-11.7); PLATELET CLUMPS FLAG 0 (0-99); PLATELET COUNT 301 10^3/uL (150-400); RED BLOOD CELL COUNT 3.48 10^6/uL (4.40-6.38); RED CELL DISTRIBUTION WIDTH 14.7 % (11.5-15.2)
[2017-01-22 09:33] LABS: ANION GAP 11 mEq/L (8-16); CALCIUM 8.4 mg/dL (8.5-10.4); CARBON DIOXIDE 24 mEq/l (22-31); CHLORIDE 99 mEq/L (97-110); CREATININE 0.7 mg/dL (0.7-1.3); GLOMERULAR FILTRATION RATE > 60; GLUCOSE 169 mg/dL (70-100); POTASSIUM 4.3 mEq/L (3.5-5.2); SODIUM 134 mEq/L (134-144)
--- NOTE | 2017-01-22 11:16 | HOSPPROG ---
Hospitalist Progress Note Assessment/Plan: # brain mass s/p resection by Dr. Tinsley - fabricio haskins # CAD s/p CABG - continue Coreg, lisinopril, atorvastatin - holding aspirin # sCHF - EF 40% - Coreg, lisinopril # DM - A1c pending - continue insulin # depression - suspect this is somewhat situational - beauty culturist to see him today # leukocytosis - steroids and stress from surgery # thyroid nodule - outpatient f/u Subjective: Sitting in a chair; flat affect; I discussed this at length with Bindu, his friend Objective: Vital Signs Temp Pulse Resp BP Pulse Ox 37 C 77 11 L 124/47 H 97 01/22/17 05:59 01/22/17 08:12 01/22/17 05:59 01/22/17 08:12 01/22/17 05:59 Laboratory Results 01/22/17 08:50 01/22/17 08:50 01/21/17 01/22/17 01/23/17 05:59 05:59 04:59 Intake Total 3025 1550 Output Total 2850 Balance 175 1550 Chart reviewed MRI reviewed - Physical Exam Constitutional: no apparent distress Cardiovascular: regular rate and rhythym, systolic murmur, No irregularly irregular, No diastolic murmur Respiratory: no respiratory distress, no rales or rhonchi Gastrointestinal: normoactive bowel sounds, soft, non-tender abdomen, no palpable masses ICD10 Worksheet Patient Problems: Problems Problem Status Onset chronic disease mgmt/transitional Care Acute Recent non-ST elevation myocardial infarction (NSTEMI) Acute Acute blood loss anemia Acute S/P CABG x 3 Acute ~01/07/17 CAD, multiple vessel Acute Brain mass Acute
[2017-01-22] MEDS: oxyCODONE IR 5 MG TAB PO PRN (14:33)
[2017-01-22] MEDS: ATORVASTATIN CALCIUM 40 MG TAB PO SCH (20:39)
[2017-01-22] MEDS: LORazepam 1 MG TAB PO SCH (20:39)
[2017-01-22] MEDS: INSULIN GLARGINE 100 UNITS/ML SYRINGE SC SCH (20:39)
[2017-01-23 05:44] LABS: % IMMATURE GRANULYOCYTES 0.8 % (0.0-1.1); ABSOLUTE IMMATURE GRANULOCYTES 0.16 10^3/uL (0.00-0.10); ADD DIFF? NO; ADD MORPH? NO; ADD SCAN? NO; ATYPICAL LYMPHOCYTE FLAG 0 (0-99); FRAGMENT RBC FLAG 0 (0-99); HEMATOCRIT 29.9 % (40.0-51.0); HEMOGLOBIN 9.8 g/dL (13.7-17.5); LEFT SHIFT FLG 0 (0-99); LIPEMIA HEMOLYSIS FLAG 80 (0-99); MEAN CELL HEMOGLOBIN 29.3 pg (27.9-34.1); MEAN CELL HEMOGLOBIN CONCENTR. 32.8 g/dL (32.4-36.7); MEAN CELL VOLUME 89.3 fL (81.5-99.8); MEAN PLATELET VOLUME 9.6 fL (8.7-11.7); PLATELET CLUMPS FLAG 0 (0-99); PLATELET COUNT 268 10^3/uL (150-400); RED BLOOD CELL COUNT 3.35 10^6/uL (4.40-6.38); RED CELL DISTRIBUTION WIDTH 14.4 % (11.5-15.2)
[2017-01-23 05:57] LABS: ANION GAP 6 mEq/L (8-16); CALCIUM 7.9 mg/dL (8.5-10.4); CARBON DIOXIDE 26 mEq/l (22-31); CHLORIDE 100 mEq/L (97-110); CREATININE 0.6 mg/dL (0.7-1.3); GLOMERULAR FILTRATION RATE > 60; GLUCOSE 201 mg/dL (70-100); POTASSIUM 4.5 mEq/L (3.5-5.2); SODIUM 132 mEq/L (134-144)
[2017-01-23] MEDS: INSULIN LISPRO 100 UNIT/ML SC SCH ×5 (07:42→16:56)
[2017-01-23] MEDS: CARVEDILOL 3.125 MG TAB PO SCH ×2 (07:52→18:08)
[2017-01-23] MEDS: TAMSULOSIN HCL 0.4 MG CAP PO SCH (07:53)
[2017-01-23] MEDS: levETIRAcetam 500 MG TAB PO SCH ×2 (07:53→20:55)
[2017-01-23] MEDS: LISINOPRIL 5 MG TAB PO SCH (07:53)
[2017-01-23] MEDS: FAMOTIDINE 20 MG TAB PO SCH ×2 (07:53→20:55)
--- NOTE | 2017-01-23 08:46 | SOAPPROG ---
[facility] Progress Note Assessment/Plan: Assessment: 71 year old man with large recurrent left occipital meningioma, POD# 3 s/p resection Plan: - post-op MRI shows gross total resection, no infarcts - PT/OT for rehab eval - decadron taper over 3 weeks - will f/u in 2 weeks and will arrange XRT at that time - OK for d/c once rehab determined 01/23/17 08:45 Subjective: no complaints, doing well Objective: Vital Signs Temp Pulse Resp BP Pulse Ox 36.4 C 77 14 110/88 H 97 01/23/17 08:00 01/23/17 08:00 01/23/17 08:00 01/23/17 08:00 01/23/17 08:00 Laboratory Results 01/23/17 05:35 01/23/17 05:35 01/22/17 01/23/17 01/24/17 06:59 05:59 05:59 Intake Total 360 Output Total Balance 360 AAOx3, full strength/sensation, right hemianopsia, wound c/d/i - Pending Discharge Pending Discharge Within 24 Hours: Yes Pending Discharge Within 48 Hours: Yes Pending Discharge Date: 01/24/17 Pending Discharge Time: 11:00 ICD10 Worksheet Patient Problems: Problems Problem Status Onset Acute blood loss anemia Acute Brain mass Acute CAD, multiple vessel Acute Recent non-ST elevation myocardial infarction (NSTEMI) Acute S/P CABG x 3 Acute ~01/07/17 chronic disease mgmt/transitional Care Acute
[2017-01-23] MEDS ORDERED: D50W 25 GM/50 ML SYR IVP PRN (10:35)
[2017-01-23] MEDS ORDERED: INSULIN GLARGINE 100 UNITS/ML SYRINGE SC SCH (10:35)
--- NOTE | 2017-01-23 10:37 | HOSPPROG ---
Hospitalist Progress Note Assessment/Plan: # brain mass s/p resection by Dr. Tinsley - cont decadron, keppra # CAD s/p CABG - continue Coreg, lisinopril, atorvastatin - holding aspirin # sCHF - EF 40% - Coreg, lisinopril # DM - A1c pending - incr glargine today; cont pre-meal lispro; start SSI # depression - situational # leukocytosis - steroids and stress from surgery # thyroid nodule - outpatient f/u # ppx - will discuss with Dr. Tinsley today Subjective: Wants to go home; still feels very weak Objective: Vital Signs Temp Pulse Resp BP Pulse Ox 36.4 C 77 14 110/88 H 97 01/23/17 08:00 01/23/17 08:00 01/23/17 08:00 01/23/17 08:00 01/23/17 08:00 Laboratory Results 01/23/17 05:35 01/23/17 05:35 01/22/17 01/23/17 01/24/17 06:59 05:59 05:59 Intake Total 360 Output Total Balance 360 - Physical Exam Constitutional: no apparent distress Cardiovascular: regular rate and rhythym, no murmur, rub, or gallop, other ( Midline sternotomy scar healing well) Respiratory: no respiratory distress, no rales or rhonchi, clear to auscultation Gastrointestinal: normoactive bowel sounds, soft, non-tender abdomen, no palpable masses ICD10 Worksheet Patient Problems: Problems Problem Status Onset chronic disease mgmt/transitional Care Acute Recent non-ST elevation myocardial infarction (NSTEMI) Acute Acute blood loss anemia Acute S/P CABG x 3 Acute ~01/07/17 CAD, multiple vessel Acute Brain mass Acute
[2017-01-23] MEDS: DEXAMETHASONE 4 MG TAB PO SCH ×2 (12:05→23:32)
[2017-01-23] MEDS: oxyCODONE IR 5 MG TAB PO PRN ×2 (12:10→18:08)
[2017-01-23] MEDS: LORazepam 1 MG TAB PO SCH (20:55)
[2017-01-23] MEDS: ATORVASTATIN CALCIUM 40 MG TAB PO SCH (20:55)
[2017-01-24 02:59] LABS: HEMOGLOBIN A1C 7.1 % (4.0-6.0)
[2017-01-24] MEDS: oxyCODONE IR 5 MG TAB PO PRN ×3 (04:45→22:11)
--- NOTE | 2017-01-24 07:55 | NEUSURGPN ---
Date of Surgery: 01/20/17 Post Op Day: 4 Assessment/Plan: Assessment: 71 year old man with large recurrent left occipital meningioma, POD# 4 s/p resection Plan: -post-op MRI shows gross total resection, no infarcts noted-reviewed by Dr Tinsley -no new complaints or concerns -PT/OT for rehab eval -decadron taper over 3 weeks -call with any questions or concerns -will f/u in 2 weeks and will arrange XRT at that time -OK for d/c once rehab determined -pt understands and agrees Subjective: Awake and alert. NAD. Eating/drinking and voiding. No f/c/n/v/d. Objective: AAOx3 full strength/sensation, right hemianopsia, wound c/d/i ROBERTO x 4 Neuro Check Frequency: per routine Urinary Catheter in Place: No Catheter Insertion Date: 01/07/17 - Physician Discussed Patient with Dr.: Tinsley Patient Seen by Dr.: Tinsley Neurosurgery Physical Exam - Vitals, I&O, Labs I and O 01/23/17 01/24/17 01/25/17 05:59 05:59 05:59 Intake Total 680 Output Total 200 Balance 480 Weight Intake: Oral (ml) 680 Output: Urine (ml) 200 Toilet Urinal 200 Other: Number of Voids Toilet 1 Urinal 1 Number of Stools Toilet 1 Vital Signs Temp Pulse Resp BP Pulse Ox 36.6 C 73 12 110/65 100 01/23/17 19:34 01/24/17 04:00 01/24/17 04:00 01/24/17 04:00 01/24/17 04:00 Laboratory Results 01/23/17 05:35 01/23/17 05:35 ICD10 Worksheet Patient Problems: Problems Problem Status Onset Acute blood loss anemia Acute Brain mass Acute CAD, multiple vessel Acute Recent non-ST elevation myocardial infarction (NSTEMI) Acute S/P CABG x 3 Acute ~01/07/17 chronic disease mgmt/transitional Care Acute
[2017-01-24] MEDS: INSULIN LISPRO 100 UNIT/ML SC SCH ×6 (09:27→18:34)
[2017-01-24] MEDS: LISINOPRIL 5 MG TAB PO SCH (09:28)
[2017-01-24] MEDS: CARVEDILOL 3.125 MG TAB PO SCH ×2 (09:29→18:33)
[2017-01-24] MEDS: TAMSULOSIN HCL 0.4 MG CAP PO SCH (09:29)
[2017-01-24] MEDS: FAMOTIDINE 20 MG TAB PO SCH ×2 (09:30→21:53)
[2017-01-24] MEDS: levETIRAcetam 500 MG TAB PO SCH ×2 (09:30→21:53)
[2017-01-24] MEDS: traMADol 50 MG TAB PO PRN (11:49)
[2017-01-24] MEDS: DEXAMETHASONE 4 MG TAB PO SCH ×2 (11:50→23:02)
[2017-01-24] MEDS ORDERED: INSULIN GLARGINE 100 UNITS/ML SYRINGE SC SCH (13:52)
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
[2017-01-24] MEDS: HEPARIN 5,000 UNIT/0.5 ML SYR SC SCH ×2 (16:04→21:52)
[2017-01-24] MEDS: ATORVASTATIN CALCIUM 40 MG TAB PO SCH (21:53)
[2017-01-24] MEDS: LORazepam 1 MG TAB PO SCH (21:53)
[2017-01-25 05:44] LABS: CHOLESTEROL 95 mg/dL (140-220); CHOLESTEROL/HDL RATIO 2.11 RATIO (1.00-4.97); HIGH DENSITY LIPOPROTEIN 45 mg/dL (40-65); LDL/HDL RATIO 0.91 RATIO (1.00-3.64); LOW DENSITY LIPOPROTEIN 41 mg/dL (80-100); NON-HIGH DENSITY LIPOPROTEIN 50 mg/dL (90-129); TRIGLYCERIDE 48 mg/dL (40-150); VERY LOW DENSITY LIPOPROTEINS 9 mg/dL (8-25)
[2017-01-25] MEDS: HEPARIN 5,000 UNIT/0.5 ML SYR SC SCH (06:15)
--- NOTE | 2017-01-25 08:04 | NEUSURGPN ---
Date of Surgery: 01/20/17 Post Op Day: 5 Assessment/Plan: Assessment: 71 year old man with large recurrent left occipital meningioma, POD# 5 s/p resection Plan: -post-op MRI shows gross total resection, no infarcts noted-reviewed by Dr Tinsley -no new complaints or concerns -PT/OT -decadron taper over 3 weeks -call with any questions or concerns -will f/u in 2 weeks and will arrange XRT at that time -To rehab once bed arranged Subjective: Sleeping comfortably this morning. No severe headaches. Objective: Awake, Alert, PERRL Following commands Moving all extremities Catheter Insertion Date: 01/07/17 - Physician Discussed Patient with : Alvina Neurosurgery Physical Exam - Vitals, I&O, Labs I and O 01/24/17 01/25/17 01/26/17 05:59 05:59 05:59 Intake Total 680 870 Output Total 200 Balance 480 870 Weight 66.4 kg Intake: Oral (ml) 680 870 Output: Urine (ml) 200 Urinal 200 Other: Intake Quantity Yes Sufficient Number of Voids Toilet 1 2 Urinal 1 Number of Stools Toilet 1 1 Vital Signs Temp Pulse Resp BP Pulse Ox 36.8 C 76 16 118/47 L 92 01/25/17 04:00 01/25/17 04:00 01/25/17 04:00 01/25/17 04:00 01/25/17 04:00 Laboratory Results 01/23/17 05:35 01/23/17 05:35 ICD10 Worksheet Patient Problems: Problems Problem Status Onset Acute blood loss anemia Acute Brain mass Acute CAD, multiple vessel Acute Recent non-ST elevation myocardial infarction (NSTEMI) Acute S/P CABG x 3 Acute ~01/07/17 chronic disease mgmt/transitional Care Acute
[2017-01-25] MEDS: INSULIN LISPRO 100 UNIT/ML SC SCH ×4 (09:14→11:54)
[2017-01-25] MEDS: levETIRAcetam 500 MG TAB PO SCH (09:15)
[2017-01-25] MEDS: ASPIRIN 81 MG CHEWABLE TAB PO SCH (09:15)
[2017-01-25] MEDS: LISINOPRIL 5 MG TAB PO SCH (09:15)
[2017-01-25] MEDS: TAMSULOSIN HCL 0.4 MG CAP PO SCH (09:16)
[2017-01-25] MEDS: FAMOTIDINE 20 MG TAB PO SCH (09:16)
[2017-01-25] MEDS: CARVEDILOL 3.125 MG TAB PO SCH (09:16)
--- NOTE | 2017-01-25 10:39 | ASMTCMCOM ---
CM Note CM Note Notes: 01/25/2017 Case Management Note Discussed d/c with friend Bindu who requested transportation arranged by Case Management. Bindu agreed to pay transportation costs. Arranged transportation through [employer]: Wheel chair, no O2. Alerted RN, report to be called to [phone]. Salma at [facility] requested transport at 12:30 pm for 1300 arrival. Faxed final orders. Date Signed: 01/25/2017 10:39 AM Electronically Signed By:Brittni Winter RN
[2017-01-25] MEDS: DEXAMETHASONE 4 MG TAB PO SCH (11:53)
[2017-01-25 12:15] VITALS: BP 108/45; PULSE 83; RESP 17; TEMP 99; O2SAT 94
--- NOTE | 2017-01-25 12:21 | PDIAF ---
- Diagnosis Diagnosis: CAD and brain tumor Code Status: Full Code - Medication Management Discharge Medications: Medications to Continue on Transfer Acetaminophen [Tylenol 325mg (*)] 650 mg PO Q4HRS PRN 01/06/17 [Last Taken Unknown] Atorvastatin Calcium [Lipitor 40 mg (*)] 80 mg PO HS 01/06/17 [Last Taken Unknown] Insulin Glargine [Lantus 100 UNITS/ML (*)] 0.2 ml SC HS 01/06/17 [Last Taken Unknown] Lisinopril [Zestril 2.5 mg (*)] 2.5 mg PO DAILY 01/06/17 [Last Taken Unknown] Polyethylene Glycol 3350 [Miralax 17 gm (*)] 17 gm PO DAILY PRN 01/06/17 [Last Taken Unknown] Sennosides/Docusate Sodium [Senna-S Tablet] 1 each PO DAILY 01/06/17 [Last Taken Unknown] Dexamethasone [Decadron 4 MG (*)] 4 mg PO Q6 #30 tab 01/11/17 [Last Taken Unknown] levETIRAcetam [Keppra 500 mg (*)] 1,000 mg PO BID #60 tab 01/11/17 [Last Taken Unknown] Aspirin [Aspirin 81mg (*)] 81 mg PO DAILY tab.chew 01/25/17 [Last Taken Unknown ] Carvedilol [Coreg (*)] 3.125 mg PO BIDMEAL tab 01/25/17 [Last Taken Unknown] Famotidine [Pepcid 20 MG (*)] 20 mg PO BID tab 01/25/17 [Last Taken Unknown] Heparin [Heparin SC 5000 unit/0.5 ml (*)] 5,000 unit SC Q8HRS syr 01/25/17 [ Last Taken Unknown] Insulin Lispro [humALOG LISPRO 100 units/ml (*)] 3 unit SC TIDMEAL unit [Last Taken Unknown] LORazepam [Ativan (*)] 2 mg PO HS tab 01/25/17 [Last Taken Unknown] Ondansetron Odt [Zofran Odt 4 mg (*)] 4 - 8 mg PO Q6HRS PRN tab 01/25/17 [Last Taken Unknown] Tamsulosin HCl [Flomax 0.4 MG (*)] 0.4 mg PO DAILY cap 01/25/17 [Last Taken Unknown] oxyCODONE IR [Oxycodone Ir (*)] 5 mg PO Q4HRS PRN tab 01/25/17 [Last Taken Unknown] traMADol [Ultram 50 mg (*)] 50 - 100 mg PO Q4HRS PRN tab 01/25/17 [Last Taken Unknown] Discharge Medications: Refer to the Discharge Home Medication list for PRN reason. - Orders Services needed: Registered Nurse, Master City Magistrate, Physical Therapy, Occupational Therapy, Speech Language Pathologist Diet Recommendation: cardiac -low fat low salt Diet Texture: Regular Texture Diet, Thin Liquids - Follow Up Care Current Providers and Referrals: Dago Tinsley MD [Medical Doctor] - (follow up for surgery-plan for 01/19/17) Lionel Rosas DO [Doctor of Osteopathy] - 02/08/17 9:00 am Patient,NotPresent [Unknown] -
[2017-01-25] MEDS: ACETAMINOPHEN 325 MG TAB PO PRN (13:12)
--- NOTE | 2017-01-25 17:19 | ASDISCHSUM ---
Discharge Information Plan Status:Inpatient Rehab Medically Cleared to Leave:01/24/2017 Discharge Date:01/25/2017 12:40 PM CM D/C Disposition: ADT D/C Disposition:[facility] IP Projected Discharge Date:01/13/2017 11:00 AM Transportation at D/C:Wheelchair Van Discharge Delay Reason: Follow-Up Date:01/13/2017 11:00 AM Discharge Slot: Final Diagnosis: Placement Information Referral Type:*Residential/SNF Referral ID:[id number] Provider Name: Address 1: Phone Number: Address 2: Fax Number: City: Selection Factors: State: Patient Contact Information Contact Name:SHEMAR Relationship:Friend Address:[address] City:[place] Alternate Phone: [facility] Code:[place] [address] Email: Financial Information Financial Class: Primary Plan Desc:MEDICARE INPATIENT Primary Plan Number:[id number] Secondary Plan Desc: Secondary Plan Number: Assessment Information LACE LACE Length of stay for Answers: 1 day current admission Acuity / Level of Care Answers: No. Comorbidities - select Answers: Previous myocardial all that apply infarction Cerebrovascular disease Emergency dept visits in Answers: 1 last 6 months Score: 4 Date Signed: 01/07/2017 04:58 PM Electronically Signed By:Sharmin Stallworth RN [facility] CM Progress Note CM Note CM Note Notes: Chart reviewed. Patient transfer from [facility] after brain mass discovered and in setting of ACMI. To OR today for CABG. Needs to be determined. CM to follow. Date Signed: 01/07/2017 05:04 PM Electronically Signed By:Sharmin Stallworth RN [facility] CM Progress Note CM Note CM Note Notes: Met w/pt and friend Gerardo Lara ([phone]) Discussed need for SNF rehab. Pt in agreement with need for rehab prior to planned surgery for brain tumor. Friend Gerardo reinforced need for SNF rehab and then readmit for brain surgery. Gerardo lives in [facility] and is leaving tomorrow. He will be back in [place] on the date of brain surgery. Friend Bindu Patton ([phone]) is coming to visit pt while Gerardo is away. Per pt there is no family involved. Pt requested referrals to [facility], [facility], [facility] and [facility] in [place]. Case Management d/c poc: to SNF rehab when medically stable. Case Management to follow. Date Signed: 01/10/2017 02:05 PM Electronically Signed By:Brittni Winetr RN [facility] Progress Note CM Note CM Note Notes: Chart reviewed. Spoke with Bill Altman Neuro surgery. Patient condition requires closer supervision than SNF could provide. Inpatient rehab declines patient at present per patients monitoring needs. Plan to OR on 01/21. CM to follow. Date Signed: 01/12/2017 11:23 AM Electronically Signed By:Sharmin Stallworth RN [facility] CM Progress Note CM Note CM Note Notes: Pt is scheduled to have surgery on 01/19. GLORIA spoke shailesh Horta, assistant property manager in case management. Director of case management is recommending to keep pt at the hospital because there is a possibility that if pt discharges to a facility it may be considered as a re-admission back to hospital for surgery and Medicare may not cover surgery. GLORIA communicated this information to RN to pass information to Javed Altman MD. GLORIA to follow. Date Signed: 01/13/2017 11:36 AM Electronically Signed By:CHANTE Prado [facility] CM Progress Note CM Note CM Note Notes: Per notes today, Pt. is "agitated" about having to stay in the hospital until his brain surgery "next ". Pt.. on chronic Ativan to assist in agitation. CM to follow. Date Signed: 01/15/2017 10:55 AM Electronically Signed By:Gilda Heck LCSW [facility] CM Progress Note CM Note CM Note Notes: 01/18/2017 Case Management Note Surgery planned for per chart. Case Management d/c needs to be determined during post op recovery period. Case Management to continue to follow. Date Signed: 01/18/2017 12:26 PM Electronically Signed By:Brittni Winter RN [facility] CM Progress Note CM Note CM Note Notes: Patient is POD #1 L craniotomy for tumor resection. He is POD #14 emergent CABG x 3. Therapies to resume working with patient. He will likely need SNF v inpatient rehab. A new in rehab eval order was placed today; SNF referrals were placed 01/10. CM will follow for discharge planning. Date Signed: 01/21/2017 12:12 PM Electronically Signed By:Karlene Andrade RN [facility] CM Progress Note CM Note CM Note Notes: 01/25/2017 Case Management Note Discussed d/c with friend Bindu who requested transportation arranged by Case Management. Bindu agreed to pay transportation costs. Arranged transportation through [employer]: Wheel chair, no O2. Alerted RN, report to be called to [phone]. Salma [facility] requested transport at 12:30 pm for 1300 arrival. Faxed final orders. Date Signed: 01/25/2017 10:39 AM Electronically Signed By:Brittni Winter RN Intervention Information
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
[2017-01-26] MEDS ORDERED: DEXAMETHASONE 2 MG TAB PO SCH
[2017-01-29] MEDS ORDERED: DEXAMETHASONE 2 MG TAB PO SCH (12:00)
== END 2017-01-25 12:40 | DRG 235 ==
LOC: F2N 13:36 → F2W 01-10 13:25 → F2N 01-20 14:33 → F2W 01-24 07:43
PROVIDERS: ADMIT Neurological Surgery; ATTEND Neurological Surgery
PROC: 06BQ4ZZ Excision of Left Saphenous Vein, Percutaneous Endoscopic Approach (ICD-10-PCS; principal; 2017-01-07 07:15)
PROC: 02100Z9 Bypass Coronary Artery, One Artery from Left Internal Mammary, Open Approach (ICD-10-PCS; principal; 2017-01-07 07:15)
PROC: 5A1221Z Performance of Cardiac Output, Continuous (ICD-10-PCS; principal; 2017-01-07 07:15)
PROC: 021109W Bypass Coronary Artery, Two Arteries from Aorta with Autologous Venous Tissue, Open Approach (ICD-10-PCS; principal; 2017-01-07 07:15)
PROC: 02L70CK Occlusion of Left Atrial Appendage with Extraluminal Device, Open Approach (ICD-10-PCS; principal; 2017-01-07 07:15)
PROC: 00B00ZZ Excision of Brain, Open Approach (ICD-10-PCS; 2017-01-20)
DX: I21.4 Non-ST elevation (NSTEMI) myocardial infarction (principal); I25.10 Atherosclerotic heart disease of native coronary artery without angina pectoris; C70.0 Malignant neoplasm of cerebral meninges; G93.6 Cerebral edema; I61.9 Nontraumatic intracerebral hemorrhage, unspecified; I50.21 Acute systolic (congestive) heart failure; D62 Acute posthemorrhagic anemia; I25.5 Ischemic cardiomyopathy; G93.40 Encephalopathy, unspecified; E11.65 Type 2 diabetes mellitus with hyperglycemia; J69.0 Pneumonitis due to inhalation of food and vomit; R33.9 Retention of urine, unspecified; I47.1 Supraventricular tachycardia; F41.9 Anxiety disorder, unspecified; D72.829 Elevated white blood cell count, unspecified; I27.20 Pulmonary hypertension, unspecified; E04.1 Nontoxic single thyroid nodule; F32.9 Major depressive disorder, single episode, unspecified; L89.159 Pressure ulcer of sacral region, unspecified stage; Z87.891 Personal history of nicotine dependence; Z86.73 Personal history of transient ischemic attack (TIA), and cerebral infarction without residual deficits; Z85.841 Personal history of malignant neoplasm of brain
CPT/HCPCS: 82947-QW; 92507-GN; 92523-GN; 92610-GN; 97110-GP; 97112-GO; 97112-GP; 97116-GP; 97163-GP; 97164-GP; 97167-GO; 97168-GO; 97530-GO; 97530-GP; 97532-GO; 97535-GO; A9585; C1713; G8978-GP-CK; G8978-GP-CM; G8979-GP-CI; G8979-GP-CJ; G8980-GP-CJ; G8987-GO-CK; G8987-GO-CL; G8988-GO-CJ; G8988-GO-CK; G8996-GN-CH; G8997-GN-CH; G8998-GN-CH; G9165-GN-CK; G9166-GN-CI; J0153; J0171; J0282; J0330; J0690; J1100; J1170; J1250; J1265; J1644; J1815; J1953; J2001; J2150; J2250; J2260; J2370; J2440; J2543; J2704; J2720; J2765; J2930; J3010; J3490; J7060; P9041

== ENCOUNTER 2017-01-25 13:38 | Inpatient (IN) | payer OTHER ==
[2017-01-25] MEDS ORDERED: oxyCODONE IR 5 MG TAB PO PRN (14:41)
[2017-01-25] MEDS ORDERED: POLYETHYLENE GLYCOL 3350 17 GM PKT PO PRN (14:41)
[2017-01-25] MEDS ORDERED: BISACODYL 10 MG SUPP PR PRN (14:44)
[2017-01-25] MEDS ORDERED: D50W 25 GM/50 ML SYR IVP PRN (15:29)
[2017-01-25] MEDS: traMADol 50 MG TAB PO PRN ×2 (15:35→21:02)
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
[2017-01-25] MEDS: metFORMIN HCL 500 MG TAB PO SCH (17:36)
[2017-01-25] MEDS: CARVEDILOL 3.125 MG TAB PO SCH (17:36)
[2017-01-25] MEDS: INSULIN LISPRO 100 UNIT/ML SC SCH ×2 (17:37→17:39)
[2017-01-25] MEDS ORDERED: DEXAMETHASONE 4 MG TAB PO SCH ×2 (18:00→23:30)
--- NOTE | 2017-01-25 18:21 | PDOREHIP ---
Admission [facility] - Admission - 3 Day Assessment Period Admission Date/Day 1: 01/25/17 Day 2: 01/26/17 Day 3: 01/27/17 - Active Diagnoses Comorbidities and Co-existing Conditions at Admission: 03830. DM (e.g. diabetic retinopathy, nephropathy, and neuropathy) - Skin Conditions Unhealed Pressure Ulcer (1 or more/Stage 1 or >)-Admission: 0. No
[2017-01-25] MEDS ORDERED: INSULIN GLARGINE 100 UNITS/ML SYRINGE SC SCH (21:00)
[2017-01-25] MEDS: ATORVASTATIN CALCIUM 40 MG TAB PO SCH (21:00)
[2017-01-25] MEDS: levETIRAcetam 500 MG TAB PO SCH (21:02)
[2017-01-25] MEDS: DEXAMETHASONE 4 MG TAB PO SCH (21:02)
[2017-01-25] MEDS: FAMOTIDINE 20 MG TAB PO SCH (21:02)
[2017-01-25] MEDS: INSULIN GLARGINE 100 UNITS/ML SYRINGE SC SCH (21:04)
[2017-01-25] MEDS: LORazepam 1 MG TAB PO SCH (21:05)
[2017-01-25] MEDS: HEPARIN 5,000 UNIT/0.5 ML SYR SC SCH (21:19)
[2017-01-26] MEDS: traMADol 50 MG TAB PO PRN ×3 (05:23→21:09)
[2017-01-26] MEDS: HEPARIN 5,000 UNIT/0.5 ML SYR SC SCH ×2 (05:23→13:10)
[2017-01-26] MEDS: INSULIN LISPRO 100 UNIT/ML SC SCH ×6 (08:13→17:12)
[2017-01-26] MEDS: FAMOTIDINE 20 MG TAB PO SCH ×2 (08:17→21:10)
[2017-01-26] MEDS: SENNOSIDES/DOCUSATE SODIUM TAB PO SCH (08:17)
[2017-01-26] MEDS: levETIRAcetam 500 MG TAB PO SCH ×2 (08:17→21:10)
[2017-01-26] MEDS: metFORMIN HCL 500 MG TAB PO SCH ×2 (08:17→17:11)
[2017-01-26] MEDS: TAMSULOSIN HCL 0.4 MG CAP PO SCH (08:17)
[2017-01-26] MEDS: ASPIRIN 81 MG CHEWABLE TAB PO SCH (08:17)
[2017-01-26] MEDS: CARVEDILOL 3.125 MG TAB PO SCH ×2 (08:18→17:10)
[2017-01-26] MEDS: LISINOPRIL 2.5 MG TAB PO SCH (08:18)
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
[2017-01-26] MEDS: DEXAMETHASONE 4 MG TAB PO SCH ×2 (10:27→21:10)
[2017-01-26 12:05] LABS: % IMMATURE GRANULYOCYTES 0.6 % (0.0-1.1); ABSOLUTE IMMATURE GRANULOCYTES 0.08 10^3/uL (0.00-0.10); ADD DIFF? NO; ADD MORPH? NO; ADD SCAN? NO; ATYPICAL LYMPHOCYTE FLAG 0 (0-99); FRAGMENT RBC FLAG 30 (0-99); HEMATOCRIT 32.3 % (40.0-51.0); HEMOGLOBIN 10.7 g/dL (13.7-17.5); LEFT SHIFT FLG 0 (0-99); LIPEMIA HEMOLYSIS FLAG 80 (0-99); MEAN CELL HEMOGLOBIN 29.4 pg (27.9-34.1); MEAN CELL HEMOGLOBIN CONCENTR. 33.1 g/dL (32.4-36.7); MEAN CELL VOLUME 88.7 fL (81.5-99.8); MEAN PLATELET VOLUME 10.1 fL (8.7-11.7); PLATELET CLUMPS FLAG 10 (0-99); PLATELET COUNT 292 10^3/uL (150-400); RED BLOOD CELL COUNT 3.64 10^6/uL (4.40-6.38); RED CELL DISTRIBUTION WIDTH 14.1 % (11.5-15.2)
[2017-01-26 12:15] LABS: ANION GAP 11 mEq/L (8-16); CALCIUM 8.2 mg/dL (8.5-10.4); CARBON DIOXIDE 23 mEq/l (22-31); CHLORIDE 99 mEq/L (97-110); CREATININE 0.6 mg/dL (0.7-1.3); GLOMERULAR FILTRATION RATE > 60; GLUCOSE 109 mg/dL (70-100); POTASSIUM 4.3 mEq/L (3.5-5.2); SODIUM 133 mEq/L (134-144)
[2017-01-26] MEDS: AQUAPHOR OINTMENT 3.5 OZ JAR TP SCH ×2 (12:38→21:10)
[2017-01-26] MEDS: NYSTATIN POWDER 15 GM BTL TP SCH ×2 (17:15→21:10)
[2017-01-26] MEDS: ATORVASTATIN CALCIUM 40 MG TAB PO SCH (21:10)
[2017-01-26] MEDS: LORazepam 1 MG TAB PO SCH (21:10)
[2017-01-26] MEDS: INSULIN GLARGINE 100 UNITS/ML SYRINGE SC SCH (21:11)
[2017-01-27] MEDS: INSULIN LISPRO 100 UNIT/ML SC SCH ×6 (07:44→17:00)
[2017-01-27] MEDS: levETIRAcetam 500 MG TAB PO SCH ×2 (07:44→21:36)
[2017-01-27] MEDS: metFORMIN HCL 500 MG TAB PO SCH ×2 (07:45→17:00)
[2017-01-27] MEDS: FAMOTIDINE 20 MG TAB PO SCH ×2 (07:45→21:36)
[2017-01-27] MEDS: ASPIRIN 81 MG CHEWABLE TAB PO SCH (07:45)
[2017-01-27] MEDS: SENNOSIDES/DOCUSATE SODIUM TAB PO SCH (07:45)
[2017-01-27] MEDS: TAMSULOSIN HCL 0.4 MG CAP PO SCH (07:45)
[2017-01-27] MEDS: LISINOPRIL 2.5 MG TAB PO SCH (07:46)
[2017-01-27] MEDS: CARVEDILOL 3.125 MG TAB PO SCH ×2 (07:46→17:01)
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
[2017-01-27] MEDS: DEXAMETHASONE 4 MG TAB PO SCH ×2 (10:46→21:36)
[2017-01-27] MEDS: NYSTATIN POWDER 15 GM BTL TP SCH ×3 (10:47→21:36)
[2017-01-27] MEDS: AQUAPHOR OINTMENT 3.5 OZ JAR TP SCH ×2 (10:48→21:36)
[2017-01-27] MEDS: INSULIN GLARGINE 100 UNITS/ML SYRINGE SC SCH (21:35)
[2017-01-27] MEDS: ATORVASTATIN CALCIUM 40 MG TAB PO SCH (21:36)
[2017-01-27] MEDS: LORazepam 1 MG TAB PO SCH (21:36)
[2017-01-27] MEDS: traMADol 50 MG TAB PO PRN (21:37)
[2017-01-28] MEDS: traMADol 50 MG TAB PO PRN (07:35)
[2017-01-28] MEDS: LISINOPRIL 2.5 MG TAB PO SCH (08:02)
[2017-01-28] MEDS: CARVEDILOL 3.125 MG TAB PO SCH ×2 (08:02→17:19)
[2017-01-28] MEDS: TAMSULOSIN HCL 0.4 MG CAP PO SCH (08:02)
[2017-01-28] MEDS: ASPIRIN 81 MG CHEWABLE TAB PO SCH (08:02)
[2017-01-28] MEDS: SENNOSIDES/DOCUSATE SODIUM TAB PO SCH (08:02)
[2017-01-28] MEDS: FAMOTIDINE 20 MG TAB PO SCH ×2 (08:02→21:09)
[2017-01-28] MEDS: metFORMIN HCL 500 MG TAB PO SCH ×2 (08:02→17:18)
[2017-01-28] MEDS: levETIRAcetam 500 MG TAB PO SCH ×2 (08:02→21:09)
[2017-01-28] MEDS: INSULIN LISPRO 100 UNIT/ML SC SCH ×5 (08:03→17:18)
[2017-01-28] MEDS: NYSTATIN POWDER 15 GM BTL TP SCH ×3 (08:04→21:16)
[2017-01-28] MEDS: AQUAPHOR OINTMENT 3.5 OZ JAR TP SCH ×2 (08:05→21:17)
[2017-01-28] MEDS: DEXAMETHASONE 4 MG TAB PO SCH ×2 (09:39→21:10)
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
[2017-01-28] MEDS: LORazepam 1 MG TAB PO SCH (21:10)
[2017-01-28] MEDS: ATORVASTATIN CALCIUM 40 MG TAB PO SCH (21:10)
[2017-01-28] MEDS: INSULIN GLARGINE 100 UNITS/ML SYRINGE SC SCH (21:16)
[2017-01-29] MEDS: traMADol 50 MG TAB PO PRN (07:39)
[2017-01-29] MEDS: NYSTATIN POWDER 15 GM BTL TP SCH ×3 (07:59→21:46)
[2017-01-29] MEDS: AQUAPHOR OINTMENT 3.5 OZ JAR TP SCH ×2 (07:59→21:47)
[2017-01-29] MEDS: INSULIN LISPRO 100 UNIT/ML SC SCH ×3 (08:22→17:17)
[2017-01-29] MEDS: LISINOPRIL 2.5 MG TAB PO SCH (08:52)
[2017-01-29] MEDS: SENNOSIDES/DOCUSATE SODIUM TAB PO SCH (08:52)
[2017-01-29] MEDS: TAMSULOSIN HCL 0.4 MG CAP PO SCH (08:53)
[2017-01-29] MEDS: FAMOTIDINE 20 MG TAB PO SCH ×2 (08:53→20:27)
[2017-01-29] MEDS: levETIRAcetam 500 MG TAB PO SCH ×2 (08:53→20:27)
[2017-01-29] MEDS: CARVEDILOL 3.125 MG TAB PO SCH ×2 (08:53→17:13)
[2017-01-29] MEDS: ASPIRIN 81 MG CHEWABLE TAB PO SCH (08:53)
[2017-01-29] MEDS: DEXAMETHASONE 4 MG TAB PO SCH ×2 (08:55→21:47)
[2017-01-29] MEDS: metFORMIN HCL 500 MG TAB PO SCH ×2 (08:55→17:13)
[2017-01-29] MEDS ORDERED: INSULIN GLARGINE 100 UNITS/ML SYRINGE SC SCH (09:07)
--- NOTE | 2017-01-29 10:23 | SOAPPROG ---
SOAP Progress Note Assessment/Plan: Assessment: 71-year-old male status post craniotomy for recurrent meningioma Plan: # Meningioma. Status post craniotomy and excision of left occipital recurrent meningioma on 01/19/17. He has a right visual field cut, likely due to left occipital surgery. Therapies note that it is unclear if it is a visual field cut or neglect. He is requiring lots of cuing and supervision for safety awareness. Physical and Occupational Therapy to optimize mobility and activities of daily living. - Cognitive impairment status post neurosurgery, to be assessed and treated per Speech and Language Pathology. Anywhere between mild to severe cognitive impairments especially with problem solving and insight and awareness. - per NSGY, it is unclear whether patient had a seizure, but Dr. Tinsley's group has recommended Keppra 1000mg bid until mid (3 months) # Coronary artery disease. Chronic, status post coronary artery bypass graft on 01/07/2017. Cont Sternal precautions. Symptomatic relief of chest pain and nursing care to ensure the wound continues to heal well - Adjusted pain control to oxy IR from home tramadol, given tramadol side- effect of lowering seizure threshold # Chronic systolic CHF and Ischemic cardiomyopathy. Ejection fraction of approximately 40% on echocardiogram, moderate mitral regurgitation, and pulmonary hypertension estimated in the mid 60s - Cont lisinopril and coreg - monitor I/O, weights - currently euvolemic # Diabetes mellitus type 2 w/ hyerglycemia. Exacerbated by dexamethasone treatment. - FBG 70 today, peak 280 yesterday - his basal control is good, has room for improvement w/ meal-time dosing but overall he is not having dangerous levels - given that his Dex taper begins tomorrow and the lantus is dosed HS, will reduce tonroxie's HS dose to 10u, and Dr. Sousa has reduced subsequent doses to 8u - cont metformin 250 bid, cont ISS # Hyponatremia. Acute, possibly potentiated by recent NSGY, prior to surgery level was wnl - cont fluid restriction - repeat BMP in AM # Acute blood loss anemia. Post surgical, Hgb 13->10, no e/o further blood loss # Pulmonary hypertension. He has a crowded airway. He may have obstructive sleep apnea, which would contribute to the pulmonary hypertension. - He will be observed for oxygen needs and advise sleep study to rule out obstructive sleep apnea after discharge. # History of anxiety versus insomnia. Continue lorazepam 2 mg p.o. q.h.s. He reports he has been taking this medication for many years, so it is unlikely that it can be significantly tapered or discontinued during his rehabilitation stay. # Poor dentition. He needs referral to a dentist after he leaves. Diet. ADA w/ fluid restriction PPx. High risk, TEDs, holding pharm given recent NSGY Code. Full Dispo. Ongoing therapy required 01/29/17 10:27 Subjective: patient reports he is in no pain, does not feel like he is progressing, moving bowels OK, eating/drinking OK Objective: Vital Signs Temp Pulse Resp BP Pulse Ox 37.0 C 74 14 122/64 H 96 01/29/17 05:11 01/29/17 08:53 01/29/17 05:11 01/29/17 08:53 01/29/17 05:11 Laboratory Results 01/26/17 10:55 01/26/17 10:55 01/28/17 01/29/17 01/30/17 05:59 05:59 05:59 Intake Total 1062 910 Output Total 500 1650 400 Balance 562 -740 -400 Physical Exam - Physical Exam General Appearance: alert, no apparent distress, No obtunded, No anxiety EENT: PERRL/EOMI, No scleral icterus (R), No scleral icterus (L), No anisocoria Respiratory: lungs clear, normal breath sounds, No respiratory distress, No crackles, No rales, No rhonchi, No wheezing Cardiac/Chest: regular rate, rhythm, No edema, No diastolic murmur, No systolic murmur, No irregularly irregular Abdomen: normal bowel sounds, non-tender, soft, No organomegaly, No distended Skin: other (no erythema/induration or breakdown at sternotomy site or craniotomy site) Neuro/Psych: no motor/sensory deficits, oriented x 3, other (CN II-XII normal, flat and sarcastic affect) ICD10 Worksheet Patient Problems: Problems Problem Status Onset Acute blood loss anemia Acute Brain mass Acute CAD, multiple vessel Acute Recent non-ST elevation myocardial infarction (NSTEMI) Acute S/P CABG x 3 Acute ~01/07/17 chronic disease mgmt/transitional Care Acute
[2017-01-29] MEDS: ACETAMINOPHEN 325 MG TAB PO PRN (16:09)
[2017-01-29] MEDS: LORazepam 1 MG TAB PO SCH (20:26)
[2017-01-29] MEDS: ATORVASTATIN CALCIUM 40 MG TAB PO SCH (20:27)
[2017-01-30] MEDS: ACETAMINOPHEN 325 MG TAB PO PRN ×2 (06:09→14:24)
[2017-01-30] MEDS: levETIRAcetam 500 MG TAB PO SCH ×2 (08:14→20:59)
[2017-01-30] MEDS: LISINOPRIL 2.5 MG TAB PO SCH (08:14)
[2017-01-30] MEDS: SENNOSIDES/DOCUSATE SODIUM TAB PO SCH (08:15)
[2017-01-30] MEDS: FAMOTIDINE 20 MG TAB PO SCH ×2 (08:15→21:00)
[2017-01-30] MEDS: metFORMIN HCL 500 MG TAB PO SCH ×2 (08:15→17:22)
[2017-01-30] MEDS: ASPIRIN 81 MG CHEWABLE TAB PO SCH (08:15)
[2017-01-30] MEDS: CARVEDILOL 3.125 MG TAB PO SCH ×2 (08:15→17:22)
[2017-01-30] MEDS: TAMSULOSIN HCL 0.4 MG CAP PO SCH (08:16)
[2017-01-30] MEDS: INSULIN LISPRO 100 UNIT/ML SC SCH ×3 (08:16→17:22)
[2017-01-30] MEDS: AQUAPHOR OINTMENT 3.5 OZ JAR TP SCH ×2 (08:16→21:00)
[2017-01-30] MEDS: NYSTATIN POWDER 15 GM BTL TP SCH ×3 (08:16→21:00)
[2017-01-30 08:35] LABS: ANION GAP 9 mEq/L (8-16); CALCIUM 8.8 mg/dL (8.5-10.4); CARBON DIOXIDE 26 mEq/l (22-31); CHLORIDE 99 mEq/L (97-110); CREATININE 0.6 mg/dL (0.7-1.3); GLOMERULAR FILTRATION RATE > 60; GLUCOSE 90 mg/dL (70-100); POTASSIUM 5.2 mEq/L (3.5-5.2); SODIUM 134 mEq/L (134-144)
[2017-01-30] MEDS: ONDANSETRON DISINTEGRATING 4 MG TAB PO PRN (10:06)
[2017-01-30] MEDS: DEXAMETHASONE 2 MG TAB PO SCH ×2 (10:06→21:00)
[2017-01-30] MEDS ORDERED: DEXAMETHASONE 2 MG TAB PO SCH (11:30)
--- NOTE | 2017-01-30 11:39 | HOSPPROG ---
Hospitalist Progress Note Assessment/Plan: Assessment: 71-year-old male status post craniotomy for recurrent meningioma Plan: # Meningioma. Status post craniotomy and excision of left occipital recurrent meningioma on 01/19/17. He has a right visual field cut, likely due to left occipital surgery. Therapies note that it is unclear if it is a visual field cut or neglect. He is requiring lots of cuing and supervision for safety awareness, but he is becoming increasingly frustrated w/ his overall situation and believes he is not progressing, albeit his insight seems impaired - Physical and Occupational Therapy to optimize mobility and activities of daily living. - Cognitive impairment status post neurosurgery, to be assessed and treated per Speech and Language Pathology. Anywhere between mild to severe cognitive impairments especially with problem solving and insight and awareness. - per NSGY, it is unclear whether patient had a seizure, but Dr. Tinsley's group has recommended Keppra 1000mg bid until mid (3 months) # Coronary artery disease. Chronic, status post coronary artery bypass graft on 01/07/2017. Cont Sternal precautions. Symptomatic relief of chest pain and nursing care to ensure the wound continues to heal well - Off of tramadol given seizure potential, patient declining oxy IR, agreeable to tylenol PRN, will also have tylenol3 as well as morphine for breakthrough - cont ASA/statin/bblocker/ACEi - will need outpt f/u w/ Dr. Rosas s/p discharge # Chronic systolic CHF and Ischemic cardiomyopathy. Ejection fraction of approximately 40% on echocardiogram, moderate mitral regurgitation, and pulmonary hypertension estimated in the mid 60s - Cont lisinopril and coreg - monitor I/O, weights, currently net neg 3kg LOS - currently euvolemic and naturesing # Diabetes mellitus type 2 w/ hyerglycemia. Exacerbated by dexamethasone treatment. - FBG 90 today, peak 290 yesterday - his basal control is good, has room for improvement w/ meal-time dosing but overall he is not having dangerous levels - Dex taper began today, received lantus 10u HS last PM, and Dr. Sousa has reduced subsequent doses to 8u - cont metformin 250 bid, cont ISS # Hyponatremia. Acute, possibly potentiated by recent NSGY, prior to surgery level was wnl - cont fluid restriction, will likely require a 1.5L restriction on DC - sNa 134 today, stabilized, patient averse to blood draws and severely agitated this AM, so will discontinue recheck tomorrow AM and recommend recheck prior to DC # Acute blood loss anemia. Post surgical, Hgb 13->10, no e/o further blood loss # Pulmonary hypertension. He has a crowded airway. He may have obstructive sleep apnea, which would contribute to the pulmonary hypertension. - He will be observed for oxygen needs and advise sleep study to rule out obstructive sleep apnea after discharge. # History of anxiety versus insomnia. Continue lorazepam 2 mg p.o. q.h.s. He reports he has been taking this medication for many years, so it is unlikely that it can be significantly tapered or discontinued during his rehabilitation stay. - per friend/ RN, nausea seems to be exacerbated historically by agitation, and he received zofran this AM w/ good effect - phenergan as 2nd line # Poor dentition. He needs referral to a dentist after he leaves. Diet. ADA w/ fluid restriction PPx. High risk, TEDs, holding pharm given recent NSGY Code. Full Dispo. Ongoing therapy required; patient requesting discharge [facility], recommend care conference w/ case mgmt/SW tomorrow to facilitate safe DC plan Subjective: agitated this AM w/ blood draw, pain resolved w/ tylenol, subsequently nauseous and asking to be discharged Objective: Vital Signs Temp Pulse Resp BP Pulse Ox 37.0 C 64 16 112/52 L 98 01/30/17 06:39 01/30/17 08:15 01/30/17 06:39 01/30/17 08:15 01/30/17 06:39 Laboratory Results 01/26/17 10:55 01/30/17 07:05 01/29/17 01/30/17 01/31/17 05:59 05:59 05:59 Intake Total 910 750 500 Output Total 1650 2150 650 Balance -740 -1400 -150 - Physical Exam Constitutional: appears nourished, not in pain, obese, No uncomfortable Eyes: PERRL, anicteric sclera, EOMI Cardiovascular: regular rate and rhythym, no murmur, rub, or gallop, No irregularly irregular, No edema Respiratory: no respiratory distress, no rales or rhonchi, clear to auscultation Gastrointestinal: normoactive bowel sounds, soft, non-tender abdomen, no palpable masses Neurologic: AAOx3, No weakness (motor 5/5 bilat LE), No facial droop Psychiatric: not encephalopathic, anxious, flat affect, agitated, poor insight ICD10 Worksheet Patient Problems: Problems Problem Status Onset Acute blood loss anemia Acute Brain mass Acute CAD, multiple vessel Acute Recent non-ST elevation myocardial infarction (NSTEMI) Acute S/P CABG x 3 Acute ~01/07/17 chronic disease mgmt/transitional Care Acute
[2017-01-30] MEDS: PROMETHAZINE HCL 25 MG TAB PO PRN ×2 (15:07→21:59)
[2017-01-30] MEDS: INSULIN GLARGINE 100 UNITS/ML SYRINGE SC SCH (20:59)
[2017-01-30] MEDS: ATORVASTATIN CALCIUM 40 MG TAB PO SCH (20:59)
[2017-01-30] MEDS ORDERED: INSULIN GLARGINE 100 UNITS/ML SYRINGE SC SCH (21:00)
[2017-01-30] MEDS: LORazepam 1 MG TAB PO SCH (21:00)
[2017-01-31] MEDS: ASPIRIN 81 MG CHEWABLE TAB PO SCH (08:12)
[2017-01-31] MEDS: CARVEDILOL 3.125 MG TAB PO SCH ×2 (08:12→17:57)
[2017-01-31] MEDS: FAMOTIDINE 20 MG TAB PO SCH ×2 (08:13→20:40)
[2017-01-31] MEDS: levETIRAcetam 500 MG TAB PO SCH ×2 (08:14→20:41)
[2017-01-31] MEDS: INSULIN LISPRO 100 UNIT/ML SC SCH ×3 (08:14→18:00)
[2017-01-31] MEDS: LISINOPRIL 2.5 MG TAB PO SCH (08:14)
[2017-01-31] MEDS: metFORMIN HCL 500 MG TAB PO SCH ×2 (08:15→17:57)
[2017-01-31] MEDS: SENNOSIDES/DOCUSATE SODIUM TAB PO SCH (08:16)
[2017-01-31] MEDS: TAMSULOSIN HCL 0.4 MG CAP PO SCH (08:16)
[2017-01-31] MEDS: ACETAMINOPHEN 325 MG TAB PO PRN ×3 (09:40→19:26)
[2017-01-31] MEDS: ONDANSETRON DISINTEGRATING 4 MG TAB PO PRN (09:41)
[2017-01-31] MEDS: NYSTATIN POWDER 15 GM BTL TP SCH ×3 (09:42→20:46)
[2017-01-31] MEDS: AQUAPHOR OINTMENT 3.5 OZ JAR TP SCH ×2 (09:42→20:46)
[2017-01-31] MEDS: DEXAMETHASONE 2 MG TAB PO SCH ×2 (09:46→20:40)
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
[2017-01-31] MEDS ORDERED: SENNOSIDES/DOCUSATE SODIUM TAB PO PRN (10:57)
[2017-01-31 11:15] LABS: % IMMATURE GRANULYOCYTES 0.7 % (0.0-1.1); ABSOLUTE IMMATURE GRANULOCYTES 0.08 10^3/uL (0.00-0.10); ADD DIFF? NO; ADD MORPH? NO; ADD SCAN? NO; ATYPICAL LYMPHOCYTE FLAG 0 (0-99); FRAGMENT RBC FLAG 0 (0-99); HEMATOCRIT 33.2 % (40.0-51.0); HEMOGLOBIN 10.9 g/dL (13.7-17.5); LEFT SHIFT FLG 0 (0-99); LIPEMIA HEMOLYSIS FLAG 80 (0-99); MEAN CELL HEMOGLOBIN 28.9 pg (27.9-34.1); MEAN CELL HEMOGLOBIN CONCENTR. 32.8 g/dL (32.4-36.7); MEAN CELL VOLUME 88.1 fL (81.5-99.8); MEAN PLATELET VOLUME 9.7 fL (8.7-11.7); PLATELET CLUMPS FLAG 0 (0-99); PLATELET COUNT 305 10^3/uL (150-400); RED BLOOD CELL COUNT 3.77 10^6/uL (4.40-6.38); RED CELL DISTRIBUTION WIDTH 14.1 % (11.5-15.2)
[2017-01-31 11:35] LABS: ALANINE AMINOTRANSFERASE 45 IU/L (21-72); ALBUMIN 2.9 g/dL (3.5-5.0); ALKALINE PHOSPHATASE 80 IU/L (38-126); ANION GAP 11 mEq/L (8-16); ASPARTATE AMINOTRANSFERASE 19 IU/L (17-59); BILIRUBIN,TOTAL 0.3 mg/dL (0.1-1.4); CALCIUM 8.2 mg/dL (8.5-10.4); CARBON DIOXIDE 24 mEq/l (22-31); CHLORIDE 101 mEq/L (97-110); CREATININE 0.7 mg/dL (0.7-1.3); GLOMERULAR FILTRATION RATE > 60; GLUCOSE 120 mg/dL (70-100); POTASSIUM 4.3 mEq/L (3.5-5.2); SODIUM 136 mEq/L (134-144); TOTAL PROTEIN 4.9 g/dL (6.3-8.2)
[2017-01-31] MEDS: ATORVASTATIN CALCIUM 40 MG TAB PO SCH (20:39)
[2017-01-31] MEDS: LORazepam 1 MG TAB PO SCH (20:41)
[2017-01-31] MEDS: INSULIN GLARGINE 100 UNITS/ML SYRINGE SC SCH (20:47)
[2017-02-01] MEDS: ACETAMINOPHEN 325 MG TAB PO PRN ×2 (07:42→17:17)
[2017-02-01] MEDS: metFORMIN HCL 500 MG TAB PO SCH (07:42)
[2017-02-01] MEDS: FAMOTIDINE 20 MG TAB PO SCH ×2 (07:42→20:23)
[2017-02-01] MEDS: ONDANSETRON DISINTEGRATING 4 MG TAB PO PRN ×2 (07:42→19:06)
[2017-02-01] MEDS: INSULIN LISPRO 100 UNIT/ML SC SCH ×3 (07:43→17:17)
[2017-02-01] MEDS: levETIRAcetam 500 MG TAB PO SCH ×2 (08:26→20:22)
[2017-02-01] MEDS: TAMSULOSIN HCL 0.4 MG CAP PO SCH (08:27)
[2017-02-01] MEDS: LISINOPRIL 2.5 MG TAB PO SCH (08:27)
[2017-02-01] MEDS: ASPIRIN 81 MG CHEWABLE TAB PO SCH (08:27)
[2017-02-01] MEDS: CARVEDILOL 3.125 MG TAB PO SCH ×2 (08:28→17:17)
[2017-02-01] MEDS: DEXAMETHASONE 2 MG TAB PO SCH ×2 (08:29→20:22)
[2017-02-01] MEDS: NYSTATIN POWDER 15 GM BTL TP SCH ×3 (11:27→20:28)
[2017-02-01] MEDS: AQUAPHOR OINTMENT 3.5 OZ JAR TP SCH ×2 (11:27→20:28)
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
[2017-02-01] MEDS: ATORVASTATIN CALCIUM 40 MG TAB PO SCH (20:22)
[2017-02-01] MEDS: LORazepam 1 MG TAB PO SCH (20:23)
[2017-02-01] MEDS: INSULIN GLARGINE 100 UNITS/ML SYRINGE SC SCH (20:26)
[2017-02-02] MEDS: CARVEDILOL 3.125 MG TAB PO SCH ×2 (07:58→17:05)
[2017-02-02] MEDS: ASPIRIN 81 MG CHEWABLE TAB PO SCH (07:59)
[2017-02-02] MEDS: LISINOPRIL 2.5 MG TAB PO SCH (07:59)
[2017-02-02] MEDS: TAMSULOSIN HCL 0.4 MG CAP PO SCH (07:59)
[2017-02-02] MEDS: FAMOTIDINE 20 MG TAB PO SCH ×2 (08:00→20:32)
[2017-02-02] MEDS: levETIRAcetam 500 MG TAB PO SCH ×2 (08:00→20:32)
[2017-02-02] MEDS: DEXAMETHASONE 2 MG TAB PO SCH ×2 (08:01→20:32)
[2017-02-02] MEDS: INSULIN LISPRO 100 UNIT/ML SC SCH ×3 (08:01→17:06)
[2017-02-02] MEDS: AQUAPHOR OINTMENT 3.5 OZ JAR TP SCH ×2 (09:02→20:32)
[2017-02-02] MEDS: NYSTATIN POWDER 15 GM BTL TP SCH ×3 (09:02→20:32)
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
[2017-02-02] MEDS ORDERED: buPROPion XL 150 MG TAB PO SCH (11:30)
[2017-02-02] MEDS: buPROPion XL 150 MG TAB PO SCH (12:41)
[2017-02-02] MEDS: metFORMIN HCL 500 MG TAB PO SCH (17:06)
[2017-02-02] MEDS: LORazepam 1 MG TAB PO SCH (20:31)
[2017-02-02] MEDS: INSULIN GLARGINE 100 UNITS/ML SYRINGE SC SCH (20:31)
[2017-02-02] MEDS: ATORVASTATIN CALCIUM 40 MG TAB PO SCH (20:32)
[2017-02-03] MEDS: ACETAMINOPHEN 325 MG TAB PO PRN ×2 (07:16→19:26)
[2017-02-03] MEDS: AQUAPHOR OINTMENT 3.5 OZ JAR TP SCH ×2 (07:25→21:07)
[2017-02-03] MEDS: ASPIRIN 81 MG CHEWABLE TAB PO SCH (08:38)
[2017-02-03] MEDS: levETIRAcetam 500 MG TAB PO SCH ×2 (08:38→21:01)
[2017-02-03] MEDS: TAMSULOSIN HCL 0.4 MG CAP PO SCH (08:38)
[2017-02-03] MEDS: DEXAMETHASONE 2 MG TAB PO SCH ×2 (08:39→21:01)
[2017-02-03] MEDS: metFORMIN HCL 500 MG TAB PO SCH ×2 (08:39→17:14)
[2017-02-03] MEDS: buPROPion XL 150 MG TAB PO SCH (08:39)
[2017-02-03] MEDS: FAMOTIDINE 20 MG TAB PO SCH ×2 (08:39→21:01)
[2017-02-03] MEDS: CARVEDILOL 3.125 MG TAB PO SCH ×2 (08:40→17:12)
[2017-02-03] MEDS: INSULIN LISPRO 100 UNIT/ML SC SCH ×3 (08:40→17:11)
[2017-02-03] MEDS: LISINOPRIL 2.5 MG TAB PO SCH (08:41)
[2017-02-03] MEDS: ONDANSETRON DISINTEGRATING 4 MG TAB PO PRN (09:08)
[2017-02-03] MEDS: NYSTATIN POWDER 15 GM BTL TP SCH ×3 (09:08→21:06)
[2017-02-03] MEDS: MAG HYDROX/AL HYDROX/SIMETH 30 ML UDCUP PO PRN (12:08)
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
[2017-02-03] MEDS: ATORVASTATIN CALCIUM 40 MG TAB PO SCH (21:00)
[2017-02-03] MEDS: LORazepam 1 MG TAB PO SCH (21:01)
[2017-02-03] MEDS: INSULIN GLARGINE 100 UNITS/ML SYRINGE SC SCH (21:02)
[2017-02-04] MEDS: NYSTATIN POWDER 15 GM BTL TP SCH ×4 (01:32→22:22)
[2017-02-04] MEDS: AQUAPHOR OINTMENT 3.5 OZ JAR TP SCH ×3 (01:33→22:21)
[2017-02-04] MEDS: ACETAMINOPHEN 325 MG TAB PO PRN ×2 (07:25→17:54)
[2017-02-04] MEDS: buPROPion XL 150 MG TAB PO SCH (08:58)
[2017-02-04] MEDS: ASPIRIN 81 MG CHEWABLE TAB PO SCH (08:58)
[2017-02-04] MEDS: TAMSULOSIN HCL 0.4 MG CAP PO SCH (08:58)
[2017-02-04] MEDS: PANTOPRAZOLE SODIUM 40 MG TAB PO SCH (08:58)
[2017-02-04] MEDS: CARVEDILOL 3.125 MG TAB PO SCH ×2 (08:58→17:27)
[2017-02-04] MEDS: levETIRAcetam 500 MG TAB PO SCH ×2 (08:58→22:21)
[2017-02-04] MEDS: metFORMIN HCL 500 MG TAB PO SCH ×2 (08:58→17:27)
[2017-02-04] MEDS: INSULIN LISPRO 100 UNIT/ML SC SCH ×3 (08:59→17:26)
[2017-02-04] MEDS: LISINOPRIL 2.5 MG TAB PO SCH (08:59)
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
[2017-02-04] MEDS: DEXAMETHASONE 2 MG TAB PO SCH (12:58)
[2017-02-04 16:47] LABS: % IMMATURE GRANULYOCYTES 1.3 % (0.0-1.1); ADD DIFF? NO; ADD MORPH? NO; ADD SCAN? NO; ATYPICAL LYMPHOCYTE FLAG 0 (0-99); FRAGMENT RBC FLAG 0 (0-99); HEMATOCRIT 34.9 % (40.0-51.0); HEMOGLOBIN 11.4 g/dL (13.7-17.5); LEFT SHIFT FLG 10 (0-99); LIPEMIA HEMOLYSIS FLAG 80 (0-99); MEAN CELL HEMOGLOBIN 28.4 pg (27.9-34.1); MEAN CELL HEMOGLOBIN CONCENTR. 32.7 g/dL (32.4-36.7); MEAN PLATELET VOLUME 9.4 fL (8.7-11.7); PLATELET CLUMPS FLAG 0 (0-99); PLATELET COUNT 344 10^3/uL (150-400); RED BLOOD CELL COUNT 4.01 10^6/uL (4.40-6.38); RED CELL DISTRIBUTION WIDTH 13.8 % (11.5-15.2)
[2017-02-04 17:58] LABS: POTASSIUM 4.5 mEq/L (3.5-5.2)
[2017-02-04 17:59] LABS: ANION GAP 12 mEq/L (8-16); CALCIUM 9.2 mg/dL (8.5-10.4); CARBON DIOXIDE 25 mEq/l (22-31); CHLORIDE 100 mEq/L (97-110); CREATININE 0.7 mg/dL (0.7-1.3); GLOMERULAR FILTRATION RATE > 60; GLUCOSE 107 mg/dL (70-100); SODIUM 137 mEq/L (134-144)
[2017-02-04] MEDS: MAG HYDROX/AL HYDROX/SIMETH 30 ML UDCUP PO PRN (20:10)
[2017-02-04] MEDS: PROMETHAZINE HCL 25 MG TAB PO PRN (20:20)
[2017-02-04] MEDS: ONDANSETRON DISINTEGRATING 4 MG TAB PO PRN (22:20)
[2017-02-04] MEDS: ATORVASTATIN CALCIUM 40 MG TAB PO SCH (22:20)
[2017-02-04] MEDS: LORazepam 1 MG TAB PO SCH (22:21)
[2017-02-04] MEDS: INSULIN GLARGINE 100 UNITS/ML SYRINGE SC SCH (22:21)
[2017-02-05] MEDS: INSULIN LISPRO 100 UNIT/ML SC SCH ×3 (07:49→17:21)
[2017-02-05] MEDS: buPROPion XL 150 MG TAB PO SCH (08:18)
[2017-02-05] MEDS: CARVEDILOL 3.125 MG TAB PO SCH ×2 (08:18→17:21)
[2017-02-05] MEDS: TAMSULOSIN HCL 0.4 MG CAP PO SCH (08:18)
[2017-02-05] MEDS: ASPIRIN 81 MG CHEWABLE TAB PO SCH (08:18)
[2017-02-05] MEDS: levETIRAcetam 500 MG TAB PO SCH ×2 (08:19→21:00)
[2017-02-05] MEDS: NYSTATIN POWDER 15 GM BTL TP SCH ×3 (08:19→21:04)
[2017-02-05] MEDS: PANTOPRAZOLE SODIUM 40 MG TAB PO SCH (08:19)
[2017-02-05] MEDS: LISINOPRIL 2.5 MG TAB PO SCH (08:19)
[2017-02-05] MEDS: metFORMIN HCL 500 MG TAB PO SCH ×2 (08:19→17:21)
[2017-02-05] MEDS: AQUAPHOR OINTMENT 3.5 OZ JAR TP SCH ×2 (08:20→21:04)
[2017-02-05] MEDS: DEXAMETHASONE 2 MG TAB PO SCH (12:16)
--- NOTE | 2017-02-05 13:32 | HOSPPROG ---
Hospitalist Progress Note Assessment/Plan: Assessment: 71-year-old male status post craniotomy for recurrent meningioma c/b ongoing nausea/abd pain Plan: # Nausea and abdominal pain. Acute, new problem, further w/u indicated. Difficult exam to interpret, but appears to be present in LLQ and mid- epigastric area - recent liver panel normal, lipase rising, WBC uninterpretable in setting o steroids - repeat LFT/Lipase/CBC/Procalcitonin - hold on US, if above abnl, will get tomorrow - cont antiemetic Rx # Meningioma. Status post craniotomy and excision of left occipital recurrent meningioma on 01/19/17. He has a right visual field cut, likely due to left occipital surgery. He is requiring lots of cuing and supervision for safety awareness, but he is more agreeable now that he feels like he has a discharge plan ready - Physical and Occupational Therapy to optimize mobility and activities of daily living. - Cognitive impairment status post neurosurgery, to be assessed and treated per Speech and Language Pathology. Anywhere between mild to severe cognitive impairments especially with problem solving and insight and awareness. - per NSGY, it is unclear whether patient had a seizure, but Dr. Tinsley's group has recommended Keppra 1000mg bid until mid (3 months) # Coronary artery disease. Chronic, status post coronary artery bypass graft on 01/07/2017. Cont Sternal precautions. Symptomatic relief of chest pain and nursing care to ensure the wound continues to heal well - Off of tramadol given seizure potential, patient declining oxy IR, agreeable to tylenol PRN, will also have tylenol3 as well as morphine for breakthrough - cont ASA/statin/bblocker/ACEi - will need outpt f/u w/ Dr. Rosas s/p discharge # Chronic systolic CHF and Ischemic cardiomyopathy. Ejection fraction of approximately 40% on echocardiogram, moderate mitral regurgitation, and pulmonary hypertension estimated in the mid 60s - Cont lisinopril and coreg - monitor I/O, weights, currently net positive 3kg LOS - currently euvolemic and naturesing # Diabetes mellitus type 2 w/ hyerglycemia. Exacerbated by dexamethasone treatment. - FBG 110 today - metformin held b/c of nausea, no effect, 1000mg bid restarted - not requiring ISS - mid morning level 70, will reduce lantus to 6u HS # Hyponatremia. Acute, possibly potentiated by recent NSGY, prior to surgery level was wnl - cont fluid restriction, will likely require a 1.5L restriction on DC - repeating in AM # Acute blood loss anemia. Post surgical, Hgb 13->10, no e/o further blood loss # Pulmonary hypertension. He has a crowded airway. He may have obstructive sleep apnea, which would contribute to the pulmonary hypertension. - He will be observed for oxygen needs and advise sleep study to rule out obstructive sleep apnea after discharge. # History of anxiety versus insomnia. Continue lorazepam 2 mg p.o. q.h.s. He reports he has been taking this medication for many years, so it is unlikely that it can be significantly tapered or discontinued during his rehabilitation stay. - per friend/ RN, nausea seems to be exacerbated historically by agitation, cont zofran - phenergan as 2nd line # Poor dentition. He needs referral to a dentist after he leaves. Diet. ADA w/ fluid restriction PPx. High risk, TEDs, holding pharm given recent NSGY Code. Full Dispo. Ongoing therapy required; plan for 02/08 Subjective: patient reports nausea, intermittent abd pain Objective: Vital Signs Temp Pulse Resp BP Pulse Ox 36.7 C 83 15 119/57 L 99 02/05/17 07:37 02/05/17 08:18 02/05/17 07:37 02/05/17 08:19 02/05/17 07:37 Laboratory Results 02/04/17 16:00 02/04/17 16:00 02/04/17 02/05/17 02/06/17 05:59 05:59 05:59 Intake Total 920 1920 120 Output Total 750 300 Balance 920 1170 -180 - Physical Exam Constitutional: no apparent distress, appears nourished, not in pain, uncomfortable Cardiovascular: regular rate and rhythym, no murmur, rub, or gallop, No edema Respiratory: no respiratory distress, no rales or rhonchi, clear to auscultation Gastrointestinal: normoactive bowel sounds, no palpable masses, tenderness (mid- epigastric and LLQ), No guarding, No distension Skin: other (no erythema/induration/tenderness at scalp incision site, CDI) Neurologic: AAOx3, sensation intact bilaterally, CN II-XII Intact, No weakness ( motor 5/5 bilat UE/LE) Psychiatric: not anxious, flat affect, poor memory, other (concentration /), No agitated ICD10 Worksheet Patient Problems: Problems Problem Status Onset Acute blood loss anemia Acute Brain mass Acute CAD, multiple vessel Acute Recent non-ST elevation myocardial infarction (NSTEMI) Acute S/P CABG x 3 Acute ~01/07/17 chronic disease mgmt/transitional Care Acute
[2017-02-05] MEDS: MAG HYDROX/AL HYDROX/SIMETH 30 ML UDCUP PO PRN (20:59)
[2017-02-05] MEDS: PROMETHAZINE HCL 25 MG TAB PO PRN (21:00)
[2017-02-05] MEDS: ATORVASTATIN CALCIUM 40 MG TAB PO SCH (21:00)
[2017-02-05] MEDS ORDERED: INSULIN GLARGINE 100 UNITS/ML SYRINGE SC SCH (21:00)
[2017-02-05] MEDS: LORazepam 1 MG TAB PO SCH (21:00)
[2017-02-05] MEDS: ONDANSETRON DISINTEGRATING 4 MG TAB PO PRN (21:00)
[2017-02-06] MEDS: AQUAPHOR OINTMENT 3.5 OZ JAR TP SCH ×2 (08:11→20:49)
[2017-02-06] MEDS: NYSTATIN POWDER 15 GM BTL TP SCH ×3 (08:11→20:49)
[2017-02-06] MEDS: INSULIN LISPRO 100 UNIT/ML SC SCH ×3 (08:11→17:48)
[2017-02-06] MEDS: metFORMIN HCL 500 MG TAB PO SCH ×2 (08:21→17:41)
[2017-02-06] MEDS: levETIRAcetam 500 MG TAB PO SCH ×2 (08:21→20:48)
[2017-02-06] MEDS: buPROPion XL 150 MG TAB PO SCH (08:22)
[2017-02-06] MEDS: CARVEDILOL 3.125 MG TAB PO SCH ×2 (08:22→17:41)
[2017-02-06] MEDS: PANTOPRAZOLE SODIUM 40 MG TAB PO SCH (08:22)
[2017-02-06] MEDS: ASPIRIN 81 MG CHEWABLE TAB PO SCH (08:22)
[2017-02-06] MEDS: TAMSULOSIN HCL 0.4 MG CAP PO SCH (08:22)
[2017-02-06] MEDS: LISINOPRIL 2.5 MG TAB PO SCH (08:22)
[2017-02-06] MEDS ORDERED: INSULIN GLARGINE 100 UNITS/ML SYRINGE SC SCH ×2 (11:54→12:45)
[2017-02-06] MEDS: ACETAMINOPHEN 325 MG TAB PO PRN (11:58)
[2017-02-06] MEDS: DEXAMETHASONE 2 MG TAB PO SCH (12:14)
[2017-02-06] MEDS ORDERED: DEXAMETHASONE 2 MG TAB PO ONE (12:15)
[2017-02-06] MEDS: ONDANSETRON DISINTEGRATING 4 MG TAB PO PRN (12:51)
[2017-02-06] MEDS: CALCIUM CARBONATE 500 MG CHEWABLE TAB PO PRN (13:38)
--- NOTE | 2017-02-06 13:39 | HOSPPROG ---
Hospitalist Progress Note Assessment/Plan: Assessment: 71-year-old male status post craniotomy for recurrent meningioma c/b ongoing nausea/abd pain Plan: # Nausea and abdominal pain. Acute on chronic, patient's friend reports w/u in outpt setting remotely, no official dx ever revealed. - suspect he has a functional abd pain/bowel issue - recent liver panel normal, lipase rising, WBC uninterpretable in setting o steroids - repeat LFT/Lipase/CBC/Procalcitonin declined by patient, he elects for supportive care > diagnostic w/u - cont antiemetic Rx, d/w RN and plan to give proactively in AM, adjust steroid dosing to morning meal to avoid GI irritation on empty stomach - given PRN tylenol/#3 and anti-emetics of his choosing # Meningioma. Status post craniotomy and excision of left occipital recurrent meningioma on 01/19/17. He has a right visual field cut, likely due to left occipital surgery. He is requiring lots of cuing and supervision for safety awareness, but he is more agreeable now that he feels like he has a discharge plan ready - Physical and Occupational Therapy to optimize mobility and activities of daily living. - Cognitive impairment status post neurosurgery, to be assessed and treated per Speech and Language Pathology. Anywhere between mild to severe cognitive impairments especially with problem solving and insight and awareness. - per NSGY, it is unclear whether patient had a seizure, but Dr. Tinsley's group has recommended Keppra 1000mg bid until mid (3 months) # Coronary artery disease. Chronic, status post coronary artery bypass graft on 01/07/2017. Cont Sternal precautions. Symptomatic relief of chest pain and nursing care to ensure the wound continues to heal well - Off of tramadol given seizure potential, patient declining oxy IR, agreeable to tylenol PRN, will also have tylenol3 for breakthrough - cont ASA/statin/bblocker/ACEi - will need outpt f/u w/ Dr. Rosas s/p discharge # Chronic systolic CHF and Ischemic cardiomyopathy. Ejection fraction of approximately 40% on echocardiogram, moderate mitral regurgitation, and pulmonary hypertension estimated in the mid 60s - Cont lisinopril and coreg - monitor I/O, weights, currently net neg 6kg LOS - currently euvolemic and naturesing # Diabetes mellitus type 2 w/ hyperglycemia. Exacerbated by dexamethasone treatment. - FBG 50s today, responded to eating - metformin 1000mg continued, lantus reduced to 2u HS given ongoing taper in AM - patient will likely DC home only on metformin, given risk of hypoglycemia > short-term mild hyperglycemia - needs outpt PCP f/u # Hyponatremia. Acute, possibly potentiated by recent NSGY, prior to surgery level was wnl - cont fluid restriction, will likely require a 1.5L restriction on DC # Acute blood loss anemia. Post surgical, Hgb 13->10, no e/o further blood loss # Pulmonary hypertension. He has a crowded airway. He may have obstructive sleep apnea, which would contribute to the pulmonary hypertension. - He will be observed for oxygen needs and advise sleep study to rule out obstructive sleep apnea after discharge. # History of anxiety versus insomnia. Continue lorazepam 2 mg p.o. q.h.s. He reports he has been taking this medication for many years, so it is unlikely that it can be significantly tapered or discontinued during his rehabilitation stay. - per friend/ RN, nausea seems to be exacerbated historically by agitation, cont zofran - phenergan as 2nd line # Poor dentition. He needs referral to a dentist after he leaves. Diet. ADA w/ fluid restriction PPx. High risk, TEDs, holding pharm given recent NSGY Code. Full Dispo. Ongoing therapy required; plan for 02/08 Subjective: patient w/ diffuse abd discomfort and nausea this AM, mildly agitated by perception of food quality Objective: Vital Signs Temp Pulse Resp BP Pulse Ox 36.7 C 87 16 120/71 98 02/06/17 06:15 02/06/17 08:22 02/06/17 06:15 02/06/17 08:22 02/06/17 06:15 Laboratory Results 02/04/17 16:00 02/04/17 16:00 02/05/17 02/06/17 02/07/17 05:59 05:59 05:59 Intake Total 1920 488 340 Output Total 750 300 Balance 1170 188 340 - Physical Exam Constitutional: no apparent distress, appears nourished, uncomfortable, No not in pain (mild abd) Cardiovascular: regular rate and rhythym, no murmur, rub, or gallop, No edema Respiratory: no respiratory distress, no rales or rhonchi, clear to auscultation Gastrointestinal: normoactive bowel sounds, no palpable masses, tenderness ( upper half), No guarding, No distension Neurologic: AAOx3, sensation intact bilaterally, CN II-XII Intact (w/ exception of RL quadrant visual field defect), facial droop (left mouth w/ left tongue dev ), No weakness (motor 5/5 bilat UE/LE) Psychiatric: not anxious, not encephalopathic, flat affect, agitated, poor memory ICD10 Worksheet Patient Problems: Problems Problem Status Onset chronic disease mgmt/transitional Care Acute Recent non-ST elevation myocardial infarction (NSTEMI) Acute Acute blood loss anemia Acute S/P CABG x 3 Acute ~01/07/17 CAD, multiple vessel Acute Brain mass Acute
[2017-02-06] MEDS: LORazepam 1 MG TAB PO SCH (20:48)
[2017-02-06] MEDS: ATORVASTATIN CALCIUM 40 MG TAB PO SCH (20:48)
[2017-02-07] MEDS ORDERED: DEXAMETHASONE 0.5 MG TAB PO SCH ×3 (07:30→11:30)
[2017-02-07] MEDS: INSULIN LISPRO 100 UNIT/ML SC SCH (08:49)
[2017-02-07] MEDS: metFORMIN HCL 500 MG TAB PO SCH ×2 (09:35→17:43)
[2017-02-07] MEDS: TAMSULOSIN HCL 0.4 MG CAP PO SCH (09:35)
[2017-02-07] MEDS: levETIRAcetam 500 MG TAB PO SCH ×2 (09:35→21:14)
[2017-02-07] MEDS: ASPIRIN 81 MG CHEWABLE TAB PO SCH (09:35)
[2017-02-07] MEDS: buPROPion XL 150 MG TAB PO SCH (09:36)
[2017-02-07] MEDS: PANTOPRAZOLE SODIUM 40 MG TAB PO SCH (09:36)
[2017-02-07] MEDS: CARVEDILOL 3.125 MG TAB PO SCH ×2 (09:38→17:42)
[2017-02-07] MEDS: LISINOPRIL 2.5 MG TAB PO SCH (09:38)
[2017-02-07] MEDS: NYSTATIN POWDER 15 GM BTL TP SCH ×3 (09:43→21:30)
[2017-02-07] MEDS: AQUAPHOR OINTMENT 3.5 OZ JAR TP SCH ×2 (09:44→21:17)
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
--- NOTE | 2017-02-07 10:52 | PDOREHIP ---
Admission [facility] - Admission - 3 Day Assessment Period Admission Date/Day 1: 01/25/17 Day 2: 01/26/17 Day 3: 01/27/17 Discharge [facility] - Discharge - 3 Day Assessment Period 2 Days Prior to Anticipated Discharge Date: 02/06/17 1 Day Prior to Anticipated Discharge Date: 02/07/17 Anticipated Discharge Date: 02/08/17 - Discharge Skin Conditions Unhealed Pressure Ulcer (1 or more/Stage 1 or >)-Discharge: 0. No
[2017-02-07] MEDS: ONDANSETRON DISINTEGRATING 4 MG TAB PO PRN (13:19)
[2017-02-07] MEDS: CALCIUM CARBONATE 500 MG CHEWABLE TAB PO PRN (13:38)
[2017-02-07] MEDS: LORazepam 1 MG TAB PO SCH (21:14)
[2017-02-07] MEDS: ATORVASTATIN CALCIUM 40 MG TAB PO SCH (21:14)
[2017-02-07] MEDS: ACETAMINOPHEN/CODEINE 300/30MG TAB PO PRN (21:16)
[2017-02-08 05:47] VITALS: RESP 16; TEMP 98.2; O2SAT 95
[2017-02-08] MEDS: levETIRAcetam 500 MG TAB PO SCH (08:38)
[2017-02-08] MEDS: TAMSULOSIN HCL 0.4 MG CAP PO SCH (08:38)
[2017-02-08] MEDS: LISINOPRIL 2.5 MG TAB PO SCH (08:38)
[2017-02-08] MEDS: buPROPion XL 150 MG TAB PO SCH (08:38)
[2017-02-08] MEDS: metFORMIN HCL 500 MG TAB PO SCH (08:38)
[2017-02-08] MEDS: PANTOPRAZOLE SODIUM 40 MG TAB PO SCH (08:38)
[2017-02-08] MEDS: ASPIRIN 81 MG CHEWABLE TAB PO SCH (08:38)
[2017-02-08] MEDS: AQUAPHOR OINTMENT 3.5 OZ JAR TP SCH (08:39)
[2017-02-08] MEDS: CARVEDILOL 3.125 MG TAB PO SCH (08:39)
[2017-02-08 08:46] VITALS: BP 105/59; PULSE 97
[2017-02-08] MEDS: ACETAMINOPHEN/CODEINE 300/30MG TAB PO PRN (08:52)
[2017-02-08] MEDS: NYSTATIN POWDER 15 GM BTL TP SCH (09:11)
[2017-02-08] MEDS ORDERED: fentaNYL 100 MCG/2 ML INJ ONE (11:53)
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
== END 2017-02-08 13:26 | disposition home health service (06) | DRG 949 ==
LOC: BREH 13:38
PROVIDERS: ADMIT Internal Medicine; ATTEND Internal Medicine
PROC: F07M3ZZ Motor Function Treatment of Musculoskeletal System - Whole Body (ICD-10-PCS; principal; 2017-01-25)
PROC: F0636ZZ Communicative/Cognitive Integration Skills Treatment of Neurological System - Whole Body (ICD-10-PCS; principal; 2017-01-25)
PROC: F08Z7ZZ Vocational Activities and Functional Community or Work Reintegration Skills Treatment (ICD-10-PCS; principal; 2017-01-25)
DX: Z48.811 Encounter for surgical aftercare following surgery on the nervous system (principal); R41.89 Other symptoms and signs involving cognitive functions and awareness; H53.451 Other localized visual field defect, right eye; R11.0 Nausea; R10.13 Epigastric pain; E87.1 Hypo-osmolality and hyponatremia; I25.10 Atherosclerotic heart disease of native coronary artery without angina pectoris; I21.4 Non-ST elevation (NSTEMI) myocardial infarction; Z95.1 Presence of aortocoronary bypass graft; I25.5 Ischemic cardiomyopathy; I50.22 Chronic systolic (congestive) heart failure; I34.0 Nonrheumatic mitral (valve) insufficiency; I27.21 Secondary pulmonary arterial hypertension; D64.89 Other specified anemias; E11.65 Type 2 diabetes mellitus with hyperglycemia; T38.0X5A Adverse effect of glucocorticoids and synthetic analogues, initial encounter; I10 Essential (primary) hypertension; F41.9 Anxiety disorder, unspecified; F32.9 Major depressive disorder, single episode, unspecified; F17.220 Nicotine dependence, chewing tobacco, uncomplicated
CPT/HCPCS: 92507-GN; 92522-GN; 97110-GO; 97110-GP; 97112-GP; 97116-GP; 97162-GP; 97166-GO; 97530-GO; 97530-GP; 97532-GO; 97535-GO; 99366-GO; J1815; J3010

== ENCOUNTER → 2018-01-24 | Outpatient (CLI) | payer OTHER | LOC: BHLMT 10:00 | PROVIDERS: ATTEND Internal Medicine Cardiovascular Disease | DX: I25.5 Ischemic cardiomyopathy (principal); I25.10 Atherosclerotic heart disease of native coronary artery without angina pectoris; I10 Essential (primary) hypertension; E78.5 Hyperlipidemia, unspecified; Z95.1 Presence of aortocoronary bypass graft | CPT/HCPCS: 93005-PO ==